=== PATIENT | female | born 1990 | race Caucasian/White ===

== ENCOUNTER 2016-05-16 13:37 | Inpatient (IN) ==
--- NOTE | 2016-05-16 14:15 | Emergency Department Note ---
Disposition Clinical Impression: Cellulitis Qualifiers: Site of cellulitis: unspecified site Qualified Code(s): L03.90 - Cellulitis, unspecified Osteomyelitis Qualifiers: Osteomyelitis type: unspecified type Osteomyelitis location: unspecified site Qualified Code(s): M86.9 - Osteomyelitis, unspecified Disposition: Admitted As Inpatient Condition: Good Referrals: NO,PCP [Primary Care Provider] - Forms: ED Satisfaction Letter Time of Disposition: 15:29 Extremity Problem HPI - General Chief complaint: ED Extremity Problem,Nontraumatic Stated complaint: Problem with toes Time Seen by Provider: 05/16/16 14:11 Source: patient Limitations: no limitations Nursing Notes Reviewed: Yes Vital Signs Reviewed: Yes - History of Present Illness HPI Narrative: 25-year-old who states she has a history of Raynaud's phenomena is in because of toe today. On her left foot she's got a necrotic distal third digit. The patient last saw Dr. Cox one month ago. Pt Subjective Complaint: extremity pain Onset (ago): month(s) (6-8 months) Consistency: constant Injury Location: left, right, lower extremity Pain Scale: 10 Quality: burning, aching Improves with: nothing Worsens with: nothing Associated symptoms: Reports: denies other symptoms - Related Data Home Medications Medication Instructions Recorded Confirmed Acetaminophen [Tylenol] 500 mg PO Q6HR PRN 05/16/16 05/16/16 Allergies Allergy/AdvReac Type Severity Reaction Status Date / Time Cyclobenzaprine Allergy Numbness Verified 03/17/15 16:31 [From Flexeril] tramadol Allergy Rash Verified 03/17/15 16:31 Possible muscle relaxer AdvReac Numbness Uncoded 12/14/14 15:06 Constitutional: Denies: fever, chills, weakness, weight change Eyes: Denies: eye pain, eye discharge, vision change ENT ED: Denies: ear pain, throat pain, dental pain, hearing loss, epistaxis, congestion, dysphagia Cardiovascular: Denies: chest pain, palpitations, dyspnea on exertion, edema, syncope Respiratory: Denies: cough, dyspnea, wheezes, hemoptysis, stridor Gastrointestinal: Denies: abdominal pain, nausea, vomiting, diarrhea, constipation, hematemesis, melena, hematochezia Genitourinary: Denies: dysuria, frequency, hematuria, discharge Musculoskeletal: Denies: back pain, neck pain, arthralgia, myalgia Integumentary: Denies: rash, abrasion, lesions Neurological: Denies: headache, weakness, numbness, paresthesias, confusion, abnormal gait, vertigo Psychiatric: Denies: anxiety, depression, suicidal thoughts, homicidal thoughts , auditory hallucinations, visual hallucinations Endocrine: Denies: fatigue Hematological/Lymphatic: Denies: easy bleeding, easy bruising Allergic/Immunologic: Denies: facial swelling, urticaria Past Medical History - Past Medical History Medical history: Reports: no medical history, thyroid disease, other Surgical history: Reports: no surgical history Psychiatric history: Reports: no psych history BUSINESS CENTER REPRESENTATIVE history: Reports: no BUSINESS CENTER REPRESENTATIVE history - Social History Smoking Status: Former smoker Smokeless Tobacco Status: No Alcohol use: Reports: none Drug use: Reports: none Physical Exam - General Limitations: no limitations General appearance: alert - Head Head exam: atraumatic, normocephalic, normal inspection - Eye Eye exam: Present: normal appearance, PERRL, EOMI - ENT ENT exam: normal exam, normal oropharynx, mucous membranes moist - Neck Neck exam: Present: normal inspection, full ROM, trachea midline - Chest Chest inspection: Present: normal inspection, symmetric chest wall rise - Respiratory Respiratory exam: Present: normal lung sounds bilaterally - Cardiovascular Cardiovascular exam: Present: regular rate, normal rhythm, normal heart sounds - Abdominal Exam Abdominal exam: Present: soft, Non-Tender. Absent: tenderness, distention, guarding, rebound, rigidity - Extremities Exam Extremities exam: Present: normal inspection, full ROM. Absent: tenderness, pedal edema - Expanded Lower Extremity Exam Foot/toe exam: Present: other (Necrotic middle toe left foot erythema of the distal digits.) Neurovascular/Tendon exam: Absent: motor deficit, sensory deficit, tendon deficit Gait: observed and normal - Back Exam Back exam: Present: normal inspection, full ROM. Absent: tenderness - Neurological Exam Neurological exam: Present: alert, oriented X3 Course - Consultations Consultation #1: I discussed the case with Dr. Cox who would like the patient admitted he may have to do a partial amputation of her left middle toe. Time: 15:28 Consultation #2: Discussed with Dr. Brown, admit. Time: 15:48 Vital Signs Temperature 97.8 F 05/16/16 13:41 Pulse Rate 74 05/16/16 13:41 Respiratory Rate 14 05/16/16 13:41 Blood Pressure 165/109 05/16/16 13:41 O2 Sat by Pulse Oximetry 96 05/16/16 13:41 Temperature 97.8 F 05/16/16 13:41 Pulse Rate 75 05/16/16 14:35 Respiratory Rate 14 05/16/16 13:41 Blood Pressure 165/109 05/16/16 13:41 O2 Sat by Pulse Oximetry 96 05/16/16 13:41 Oxygen Delivery Oxygen Delivery Room Air Extremity Problem, Nontraumati - Lab Data Lab results reviewed: Yes I reviewed the patient's lab results. Result diagrams: 05/16/16 14:48 05/16/16 14:48 Lab Results 05/16/16 05/16/16 05/16/16 Range/Units 14:48 14:48 14:48 WBC 11.5 H (4.3-11.1) K/mcL RBC 4.77 (3.82-4.97) M/mcL Hgb 14.1 (11.5-15.4) g/dL Hct 41.6 (35.3-44.9) % MCV 87.2 (83.0-100.0) fL MCH 29.6 (28.0-33.3) pg MCHC 33.9 (31.6-35.5) g/dL RDW 13.2 (11.5-14.5) % Plt Count 242 (140-400) K/mcL MPV 11.1 (9.4-12.4) fL Immature Gran % 0.3 (0-4) % Seg Neutrophils % 80.1 % Lymphocytes % 11.8 % Monocytes % 5.8 % Eosinophils % 1.7 % Basophils % 0.3 % Neutrophils # 9.2 H (1.6-8.9) K/mcL Lymphocytes # 1.4 (0.6-4.6) K/mcL Monocytes # 0.7 (0.0-1.3) K/mcL Eosinophils # 0.2 (0.0-0.6) K/mcL Basophils # 0.0 (0.0-0.2) K/mcL ESR 41 H (0-15) mm/hr Sodium 141 (136-145) mEq/L Potassium 3.5 (3.5-4.5) mEq/L Chloride 105 (98-109) mEq/L Carbon Dioxide 29 (19-29) mEq/L BUN 13 (7-20) mg/dL Creatinine 1.12 H (0.57-1.11) mg/dL Est GFR ( Amer) > 60 (> 60) Est GFR (Non-Af Amer) 59 L (> 60) BUN/Creatinine Ratio 12 (6-26) Glucose 83 (70-99) mg/dL Calculated Osmolality 291 (280-300) Calcium 9.4 (8.6-10.8) mg/dL - Radiology Data Radiology results reviewed: Yes I reviewed the patient's radiology results. Foot X-Ray 05/16/16 14:11 IMPRESSION: 1. Cellulitis with possible abscess and osteomyelitis involving the 3rd distal phalanx. D/ / Landon Santoro MD / Landon Santoro MD Interpreting Provider: Landon Santoro MD
[2016-05-16 15:00] LABS: Basophils % 0.3 %; Eosinophils # 0.2 K/mcL (0.0-0.6); Eosinophils % 1.7 %; Hematocrit 41.6 % (35.3-44.9); Hemoglobin 14.1 g/dL (11.5-15.4); Immature Granulocytes % 0.3 % (0-4); Lymphocytes # 1.4 K/mcL (0.6-4.6); Lymphocytes % 11.8 %; Mean Corpuscular HGB Conc 33.9 g/dL (31.6-35.5); Mean Corpuscular Hemoglobin 29.6 pg (28.0-33.3); Mean Corpuscular Volume 87.2 fL (83.0-100.0); Mean Platelet Volume 11.1 fL (9.4-12.4); Monocytes # 0.7 K/mcL (0.0-1.3); Monocytes % 5.8 %; Neutrophils # 9.2 K/mcL (1.6-8.9); Platelet Count 242 K/mcL (140-400); Red Blood Count 4.77 M/mcL (3.82-4.97); Red Cell Distribution Width 13.2 % (11.5-14.5); Segmented Neutrophils % 80.1 %
[2016-05-16 15:14] LABS: BUN/Creatinine Ratio 12 (6-26); Blood Urea Nitrogen 13 mg/dL (7-20); Calcium 9.4 mg/dL (8.6-10.8); Carbon Dioxide 29 mEq/L (19-29); Chloride 105 mEq/L (98-109); Glucose 83 mg/dL (70-99); Osmolality,Calculated 291 (280-300); Potassium 3.5 mEq/L (3.5-4.5); Sodium 141 mEq/L (136-145); eGFR For African Americans > 60 (> 60); eGFR For Non-African Americans 59 (> 60)
[2016-05-16] MEDS ORDERED: *HR* OxyCODONE/APAP 5/325 TABLET PO ONE (15:27)
[2016-05-16] MEDS ORDERED: Piperacillin/Tazobactam 3.375 GM in D5% in Water (Mini-Bag+) 100 ML IVPB ONE (15:27)
--- NOTE | 2016-05-16 20:46 | Internal Med History&Physical ---
<Mati Thomas - Last Filed: 05/17/16 00:13> Date of Encounter: 05/17/16 Time of Encounter: 19:45 Assessment and Plan (1) Osteomyelitis Current visit: Yes Status: Acute Patient appears to have osteomyelitis of left third toe, seen x-ray, physical exam shows exquisitely tender toe with necrotic appearance distal to the DIP. Podiatry consulted and appreciate assistance and continue management/care Infectious disease consult for assistance in determining best course of antibiotic coverage going forward 3.375 mg Zosyn Q8hr Vancomycin dosed per pharmacy Qualifiers: Osteomyelitis type: unspecified type Osteomyelitis location: foot Laterality: left Qualified Code(s): M86.9 - Osteomyelitis, unspecified (2) Cellulitis Current visit: Yes Status: Acute Cellulitis with erythema and possible streaking in left foot coming from third toe. Plan as above Qualifiers: Site of cellulitis: unspecified site Qualified Code(s): L03.90 - Cellulitis , unspecified (3) Thyroid disease Current visit: Yes Status: Acute Patient has history of thyroid disease, but she admits she has not been able take her medications on time due to not having refills. We will check TSH (4) DVT prophylaxis Current visit: Yes Status: Acute Due to possibility of surgery, will hold chemical prophylaxis Start intermittent pneumatic compression devices Internal Medicine - H&P: HPI Chief complaint: Toe infection Admitted From: Home Plans for Post Hospital Care: Home History of present illness: Ms. De Leon is a 25 year old female with prior medical history of Raynaud's disease, thyroid disease, history of aortic much regurgitation, and prior toe infection presents to [facility] because of worsening of her left third digit toe infection. She says she has had a chronic infection still for about a year, previously had received 5 rounds of antibiotics total for PCP and teller, with last round of antibiotics about a month prior. She presents after a couple weeks of acute worsening with significant pain in her toe and foot. She reports pain is significant, 8/10 when sitting and 10/10 when walking. She reports she recently developed more systemic symptoms including fever, and nausea. She denies ever having vomited, diarrhea/constipation, chest pain, shortness of breath, changes in vision, headache. She describes swelling in the left foot, tenderness to palpation, and a blackened, scabbed third toe. There has been minimal discharge or drainage from the toe. She states that her boyfriend are currently homeless living attendant, although they do have a heater she has been cold recently which may be exacerbating her Raynaud's. Past Med Surg Social Fam HX - Past Medical History Medical history: no medical history, thyroid disease, other Psychiatric history: no psych history - Past Surgical History Surgical History: no surgical history - Social History Smoking Status: Former smoker Smokeless Tobacco Status: No Alcohol use: none Drug use: none - Family History Mother Hx Family Endocrine Disorder: Yes Father Hx Family Neuromuscular Disorders: Yes (stroke) Internal Medicine - H&P: Meds Acetaminophen [Tylenol] 500 mg PO Q6HR PRN 05/16/16 [History] Allergies Cyclobenzaprine [From Flexeril] Allergy (Verified 03/17/15 16:31) Numbness tramadol Allergy (Verified 03/17/15 16:31) Rash Possible muscle relaxer Adverse Reaction (Uncoded 12/14/14 15:06) Numbness - Constitutional Constitutional: anorexia, fever(s), no chills, no weakness - EENT Eyes: no change in vision, no discharge, no pain, no photophobia Nose, mouth and throat: no dysphagia, no nasal discharge, no neck pain, no sore throat - Cardiovascular Cardiovascular ROS IM: no chest pain, no diaphoresis, no dyspnea, no lightheadedness, no palpitations, no syncope - Respiratory Respiratory: no cough, no dyspnea, no wheezing, no excessive phlegm production - Gastrointestinal Gastrointestinal: no abdominal pain, no diarrhea, no hematemesis, no hematochezia, no melena, no nausea, no vomiting - Genitourinary Genitourinary: no change in urinary stream, no dysuria, no flank pain, no hematuria - Musculoskeletal Musculoskeletal ROS IM: as per HPI, no numbness, no tingling - Integumentary Integumentary IM: no rash, no unusual bruising - Neurological Neurological ROS: no confusion, no convulsions, no focal weakness, no numbness, no tingling, no tremor(s) - Constitutional Vitals: Temp Pulse Resp BP Pulse Ox 98.1 F 107 16 143/96 98 05/16/16 19:08 05/16/16 19:08 05/16/16 19:08 05/16/16 19:08 05/16/16 19:08 Exam: General: Cooperative, pleasant, no acute distress, alert and oriented 3, answers questions appropriately Head: Normocephalic, atraumatic Eye: Conjunctiva pink, sclera anicteric, EOMI, PERRL, somewhat tearful Neck: Supple, trachea midline, mucosa moist Respiratory: No accessory muscle usage, clear to auscultation bilaterally, no wheezes/rhonchi/rales appreciated Cardiovascular: Tachycardic, regular rhythm, S1 and S2 present, no murmurs/rubs/ gallops/clicks appreciated GI/abdominal: Nondistended, nontender, soft, normal bowel sounds, no peritoneal signs Extremities: No calf tenderness, noncyanotic, no pedal edema appreciated, warm, lower extremity pulses palpable and symmetrical, minor asymmetrical swelling of L>R patient's foot, left third toe from DIP to the tip of the toe appears to be covered in black eschar with slight serosanguineous drainage appreciated Neurological: Alert and oriented 3, no facial droop, no focal deficits Skin: Dry, intact, normal color Internal Med - H&P Results - Labs CBC & Chem 7: 05/16/16 14:48 05/16/16 14:48 <Jimbo Crawford - Last Filed: 05/17/16 02:31> Internal Medicine - H&P: HPI History of present illness: Ms. De Leon is a 25 year old female All Systems PM: A 10-system review of systems was performed and is negative for pertinent findings except as documented above in the HPI. - Constitutional Vitals: Temp Pulse Resp BP Pulse Ox 98.1 F 101 16 147/95 97 05/16/16 23:07 05/16/16 23:07 05/16/16 23:07 05/16/16 23:07 05/16/16 23:07 Internal Med - H&P Results - Labs CBC & Chem 7: 05/16/16 14:48 05/16/16 14:48 - Attending Attestation I examined this patient and my medical decision-making was reviewed with the DISTRIBUTION ASSOCIATE/PA/Advanced Practice Nurse/Resident Physician. I agree with the documented findings, disposition and treatment plan as described except to the extent set forth below. I discussed the case with the medical certification specialist Dr. Mati Thomas. I examined the patient independently. I agree with the physical examination findings, assessment and plan as documented by Dr. Mati Thomas. Briefly, patient with findings consistent with osteomyelitis. Continue with broad-spectrum antibiotics. Podiatry evaluation. Infectious disease consultation for further recommendations. Discussed with patient in detail.
[2016-05-16] MEDS ORDERED: Ondansetron 4 MG/2 ML VIAL IVP PRN (20:49)
[2016-05-16] MEDS ORDERED: Naloxone 0.4 MG/ML INJ IVP PRN (20:49)
[2016-05-16] MEDS ORDERED: Acetaminophen 325 MG TABLET PO PRN (20:49)
[2016-05-16] MEDS ORDERED: Vancomycin 1,250 MG in D5% in Water 250 ML IVPB SCH (21:00)
[2016-05-16] MEDS ORDERED: Vancomycin 1,750 MG in D5% in Water 500 ML IVPB ONE (21:00)
[2016-05-16] MEDS: *HR* HYDROcodone/Acet 5/325 mg TABLET PO PRN (21:35)
[2016-05-16] MEDS: *HR* Heparin 5,000 UNIT/ML VIAL SQ SCH (21:37)
[2016-05-16] MEDS ORDERED: Nicotine 14 MG PATCH.TD24 TD PRN (21:37)
[2016-05-16] MEDS: *HR* Morphine 2 MG/ML SYRINGE IVP PRN (23:45)
[2016-05-17] MEDS: Piperacillin/Tazobactam 3.375 GM in D5% in Water (Mini-Bag+) 100 ML IVPB SCH ×3 (00:10→17:24)
[2016-05-17 04:19] LABS: Basophils % 0.4 %; Eosinophils # 0.2 K/mcL (0.0-0.6); Eosinophils % 2.5 %; Hematocrit 40.5 % (35.3-44.9); Hemoglobin 13.3 g/dL (11.5-15.4); Immature Granulocytes % 0.3 % (0-4); Lymphocytes # 1.9 K/mcL (0.6-4.6); Lymphocytes % 20.1 %; Mean Corpuscular HGB Conc 32.8 g/dL (31.6-35.5); Mean Corpuscular Volume 88.4 fL (83.0-100.0); Mean Platelet Volume 11.5 fL (9.4-12.4); Monocytes # 0.7 K/mcL (0.0-1.3); Monocytes % 7.5 %; Neutrophils # 6.4 K/mcL (1.6-8.9); Platelet Count 223 K/mcL (140-400); Red Blood Count 4.58 M/mcL (3.82-4.97); Red Cell Distribution Width 13.2 % (11.5-14.5); Segmented Neutrophils % 69.2 %
[2016-05-17 04:27] LABS: INR 1.1; Prothrombin Time 12.1 Seconds (9.4-12.1)
[2016-05-17 04:30] LABS: Activated Partial Thrombo Time 32.4 Seconds (26.0-36.0)
[2016-05-17 04:50] LABS: Alanine Aminotransferase 57 Units/L (0-55); Albumin 3.3 g/dL (3.5-5.0); Albumin/Globulin Ratio 0.8 (1.1-2.2); Alkaline Phosphatase 88 Units/L (38-126); Aspartate Amino Transferase 33 Units/L (5-34); BUN/Creatinine Ratio 11 (6-26); Bilirubin,Total 0.9 mg/dL (0.2-1.2); Blood Urea Nitrogen 12 mg/dL (7-20); Calcium 8.6 mg/dL (8.6-10.8); Carbon Dioxide 26 mEq/L (19-29); Chloride 104 mEq/L (98-109); Globulin 3.9 g/dL (2.4-3.5); Glucose 100 mg/dL (70-99); Osmolality,Calculated 292 (280-300); Potassium 3.1 mEq/L (3.5-4.5); Sodium 141 mEq/L (136-145); Total Protein 7.2 g/dL (6.0-8.3); eGFR For African Americans > 60 (> 60); eGFR For Non-African Americans 59 (> 60)
[2016-05-17] MEDS: *HR* Heparin 5,000 UNIT/ML VIAL SQ SCH ×3 (06:18→23:02)
[2016-05-17] MEDS: Pantoprazole 40 MG VIAL IVP SCH (07:55)
[2016-05-17] MEDS ORDERED: Vancomycin 1,250 MG in D5% in Water 250 ML IVPB SCH (09:00)
--- NOTE | 2016-05-17 10:23 | Podiatry Consult Note ---
Date of Encounter: 05/17/16 Time of Encounter: 09:30 Assessment and Plan (1) Raynauds disease Current visit: Yes Status: Acute Qualifiers: Raynaud?s-associated gangrene presence: with gangrene Qualified Code(s): I73.01 - Raynaud's syndrome with gangrene (2) Cellulitis Current visit: Yes Status: Acute Qualifiers: Site of cellulitis: extremity Site of cellulitis of extremity: toe Laterality: left Qualified Code(s): L03.032 - Cellulitis of left toe (3) Osteomyelitis Current visit: Yes Status: Acute Examined at bedside Necrosis and acute cellulitis noted to left foot toe #3 Xray positive for osteomyelitis Will consult cardiology for clearance for surgery Will plan for partial to complete amputation of toe tomorrow with Patient to be NPO after midnight Please dress ulceration with adaptic, 4x4 and kerlex Continue IV antibiotic per ID Explained to patient that if she continues to smoke these ulcerations will continue to occur Verbalized understanding. Qualifiers: Osteomyelitis type: unspecified type Osteomyelitis location: foot Laterality: left Qualified Code(s): M86.9 - Osteomyelitis, unspecified History of Present Illness HPI: Ms. De Leon is a 25 year old female known to . She has a hx of non compliance to treatment and continued tobacco use. Hx of Aortic and Mitral Valve regurgitation, HTN, Raynauds and Vasculitis. Patient was recently seen in office for ulceration of toe #3, at this time she was instructed to apply santyl daily and to stop smoking, it was explained that this ulceration was secondary to her Raynauds. Patient presented to ED yesterday with complaints of increasing pain to toe and size of ulceration. She was started on IV antibiotics and imaging was obtained. Upon arrival today patient states pain 10/ 10 to toe. Dressing intact on arrival. Patient awake, alert and in no distress. Patient states that ulceration appeared larger to her. Patient states that she has noticed some drainage to the toe over the last 2 days. Patient denies any fevers, chills, n/v or flu like symptoms. Foot X-Ray 05/16/16 14:11 IMPRESSION: 1. Cellulitis with possible abscess and osteomyelitis involving the 3rd distal phalanx. D/ / Landon Santoro MD / Landon Santoro MD Interpreting Provider: Landon Santoro MD Past Med Surg Social Fam HX - Past Medical History Medical history: no medical history, thyroid disease, other Psychiatric history: no psych history - Past Surgical History Surgical History: no surgical history - Social History Smoking Status: Former smoker Smokeless Tobacco Status: No Alcohol use: none Drug use: none - Family History Mother Hx Family Endocrine Disorder: Yes Father Hx Family Neuromuscular Disorders: Yes (stroke) Medications and Allergies Acetaminophen [Tylenol] 500 mg PO Q6HR PRN 05/16/16 [History] Allergies Cyclobenzaprine [From Flexeril] Allergy (Verified 03/17/15 16:31) Numbness tramadol Allergy (Verified 03/17/15 16:31) Rash Possible muscle relaxer Adverse Reaction (Uncoded 12/14/14 15:06) Numbness All Systems Reviewed: A 10-system review of systems was performed and is negative for pertinent findings except as documented above in the HPI. Physical Exam - Constitutional Vitals: Temp Pulse Resp BP Pulse Ox 98.0 F 82 16 149/104 97 05/17/16 07:29 05/17/16 07:29 05/17/16 07:29 05/17/16 07:29 05/17/16 07:55 Exam: General Examination: CONSTITUTIONAL: Alert, oriented, in no acute distress, non-toxic. EXTREMITIES: CFT 3 seconds all toes. Edema +1 and pedal pulses palpable DP/PT. No calf pain with compression SKIN: Necrotic ulceration noted to dorsal/lateral distal aspect toe #3 of left foot. Yellow purulent drainage noted from proximal aspect of ulceration. Odor noted. Pain with palpation. Mild fluctuance noted with palpation of area. Cellulitis extends slightly past IP joint of toe. Warmth, mild edema and erythema noted 2nd smaller necrotic lesion noted to lateral aspect of toe #5 right foot. No warmth, edema, erythema or drainage noted to this lesion. Dry. 0.6cmx0.5cm. Also secondary to raynauds. NEUROLOGIC: Intact sensation to light touch Results - Labs Result Diagrams: 05/17/16 03:31 05/17/16 03:31 Labs: Abnormal lab results ESR 41 mm/hr (0-15) H 05/16/16 14:48 Potassium 3.1 mEq/L (3.5-4.5) L 05/17/16 03:31 Creatinine 1.13 mg/dL (0.57-1.11) H 05/17/16 03:31 Est GFR (Non-Af Amer) 59 (> 60) L 05/17/16 03:31 Glucose 100 mg/dL (70-99) H 05/17/16 03:31 ALT 57 Units/L (0-55) H 05/17/16 03:31 Albumin 3.3 g/dL (3.5-5.0) L 05/17/16 03:31 Globulin 3.9 g/dL (2.4-3.5) H 05/17/16 03:31 Albumin/Globulin Ratio 0.8 (1.1-2.2) L 05/17/16 03:31 H & H 05/17/16 Range/Units 03:31 Hgb 13.3 (11.5-15.4) g/dL Hct 40.5 (35.3-44.9) % All other labs normal. Consult Discharge Plan - Plan Referrals: NO,PCP [Primary Care Provider] -
--- NOTE | 2016-05-17 10:54 | Cardiology Consult Note ---
Date of Encounter: 05/17/16 Time of Encounter: 11:00 Assessment and Plan (1) Osteomyelitis Current Visit: Yes Status: Acute Per Cardiology: Podiatry following. Has necrosis and acute cellulitis noted to left foot toe #3 with ray positive for osteomyelitis with pending partial to complete amputation of toe tomorrow with Dr. Cox per records. Qualifiers: Osteomyelitis type: unspecified type Osteomyelitis location: foot Laterality: left Qualified Code(s): M86.9 - Osteomyelitis, unspecified (2) Mitral regurgitation Current Visit: No Status: Chronic Per Cardiology: Last echo June 2015 showed EF 60%, indeterminate diastolic function, normal RV structure and function, moderately dilated left atrium, moderate to severe MR. PAULINO completed June 2015 and showed normal mitral structure with moderate MR. Qualifiers: Cardiac valve disease etiology: etiology unspecified Qualified Code(s): I34.0 - Nonrheumatic mitral (valve) insufficiency (3) Preop cardiovascular exam Current Visit: Yes Status: Acute Per Cardiology: Has Moderate MR on PAULINO 06/2015. Clinically stable from CV standpoint. Anticipate will be considered low risk for low risk procedure from cardiac standpoint. Will discuss and review with Dr. Crews. Appt. with outpatient Cardiology cancelled today and rescheduled in a few weeks. Cardiology signing off. Discussion w patient/family: The assessment and plan as outlined above was discussed with the patient who expressed understanding and agreement. All questions were answered. Thank you for involving us in the care of your patient. Please call with any questions. History of Present Illness Consult date: 05/17/16 Requesting physician: Phyllis Rogers Consult reason: Preop Chief complaint: Left Toe pain History of present illness: Ms. De Leon is a 25 year old female with relevant past medical history of hypertension, hypothyroidism, nicotine abuse, Raynaud's disease, and moderate mitral regurgitation. Cardiology consult for preoperative evaluation. Patient reports she is homeless and lives in a tent. Presented to the hospital for pain in her Left 3rd toe. She denies any chest pain, shortness of breath, palpitations, dizziness, syncope, falls. Reports continues to smoke about half pack per day for the past 5 years. Past Med Surg Social Fam HX - Past Medical History Attestation: Yes The following information was validated with the patient. Source: patient Medical history: hypertension, thyroid disease, other Psychiatric history: no psych history - Past Surgical History Surgical History: no surgical history - Social History Smoking Status: Current every day smoker Smokeless Tobacco Status: No Alcohol use: none Drug use: none - Family History Mother Hx Family Endocrine Disorder: Yes Father Hx Family Neuromuscular Disorders: Yes (stroke) Medications and Allergies Acetaminophen [Tylenol] 500 mg PO Q6HR PRN 05/16/16 [History] Allergies Cyclobenzaprine [From Flexeril] Allergy (Verified 03/17/15 16:31) Numbness tramadol Allergy (Verified 03/17/15 16:31) Rash Possible muscle relaxer Adverse Reaction (Uncoded 12/14/14 15:06) Numbness All Systems Review: A 10-system review of systems was performed and is negative for pertinent findings except as documented above in the HPI. - Cardiovascular Cardiovascular: as per HPI - Integumentary Integumentary: other (left 3rd toe pain and discoloration) Physical Examination Vital Signs, Last 4 Hours Temp Pulse Resp BP Pulse Ox 05/17/16 07:55 97 05/17/16 07:29 98.0 F 82 16 149/104 97 General: Conversant, No Apparent Distress HEENT: Atraumatic, Normocephaly Cardiac: Reg Rate and Rhythm, Normal S1 and S2, No Murmur Lungs: Normal Breath Sounds, No Wheeze, Rales, Rhonchi Neuro: Alert and responsive, No focal deficits noted, Other (somewhat flat affect) Abdomen: Soft, Non-Tender Skin: Other (Left 3rd toe with necrosis) Musculoskeletal: No Chest Wall Tenderness Extremities: No Edema, Normal Pulses Results 05/17/16 03:31 05/17/16 03:31 Lab Results Laboratory Tests 05/17/16 05/17/16 05/17/16 03:31 03:31 03:31 INR 1.1 Potassium 3.1 L Creatinine 1.13 H Est GFR (Non-Af Amer) 59 L AST 33 ALT 57 H TSH 3.221 ITS Impressions Foot X-Ray 05/16/16 14:11 IMPRESSION: 1. Cellulitis with possible abscess and osteomyelitis involving the 3rd distal phalanx. D/ / Landon Santoro MD / Landon Santoro MD Interpreting Provider: Landon Santoro MD Foot X-Ray 05/16/16 14:11 IMPRESSION: 1. No acute osseous abnormality involving the right foot. D/ / Landon Santoro MD / Landon Santoro MD Interpreting Provider: Landon Santoro MD Active Medications Acetaminophen (Tylenol) 650 mg PO Q6HR PRN PRN Reason: Mild Pain (1-3) Stop: 11/15/16 20:50 Acetaminophen/Hydrocodone Bitart ([place] 5-325 Mg) 1 tab PO Q4HR PRN PRN Reason: Moderate Pain (4-6) Stop: 11/15/16 20:50 Last Admin: 05/16/16 21:35 Dose: 1 tab Diphenhydramine HCl (Benadryl) 25 mg PO Q6HR PRN PRN Reason: Itching Stop: 11/15/16 23:39 Last Admin: 05/16/16 23:50 Dose: 25 mg Heparin Sodium (Porcine) (Heparin) 5,000 unit SQ Q8HCO [facility] Stop: 11/15/16 22:01 Last Admin: 05/17/16 06:18 Dose: Not Given Piperacillin Sod/Tazobactam (Sod 3.375 gm/ Dextrose) 100 mls @ 25 mls/hr IVPB Q8HR HIGINIO PRN Reason: Protocol Stop: 11/16/16 00:01 Last Admin: 05/17/16 07:54 Dose: 25 mls/hr Vancomycin HCl 1,250 mg/ (Dextrose) 250 mls @ 166.67 mls/hr IVPB Q12H [facility] Stop: 11/16/16 09:01 Last Admin: 05/17/16 08:08 Dose: 166.67 mls/hr Morphine Sulfate (Morphine Sulfate) 2 mg IVP Q4HR PRN PRN Reason: Severe Pain (7-10) Stop: 11/15/16 20:50 Last Admin: 05/16/16 23:45 Dose: 2 mg Naloxone HCl (Narcan) 0.4 mg IVP Q2MIN PRN PRN Reason: Opioid Reversal Stop: 11/15/16 20:50 Nicotine (Nicoderm) 14 mg TD DAILY PRN; Protocol PRN Reason: nicotine cravings Stop: 11/15/16 21:46 Ondansetron HCl (Zofran) 4 mg IVP Q8HR PRN PRN Reason: Nausea And Vomiting Stop: 11/15/16 20:50 Pantoprazole Sodium (Protonix) 40 mg IVP DAILY HIGINIO Stop: 11/16/16 09:01 Last Admin: 05/17/16 07:55 Dose: 40 mg - Imaging and Cardiology Echo: report reviewed - EKG Interpretation EKG results cardiology: other (No ECG available and patient not on telemetry) Consult Discharge Plan - Plan Referrals: NO,PCP [Primary Care Provider] -
--- NOTE | 2016-05-17 14:24 | Internal Med Progress Note ---
Date of Encounter: 05/17/16 Time of Encounter: 14:22 - Assessment and plan (1) Hypokalemia Current Visit: Yes Status: Acute Assessment and plan: Replace her potassium orally today (2) Non-compliance Current Visit: Yes Status: Acute (3) Hypertension Current Visit: No Status: Acute Qualifiers: Hypertension type: essential hypertension Qualified Code(s): I10 - Essential (primary) hypertension (4) Tobacco abuse counseling Current Visit: No Status: Acute (5) Cellulitis Current Visit: Yes Status: Acute Qualifiers: Site of cellulitis: extremity Site of cellulitis of extremity: toe Laterality: left Qualified Code(s): L03.032 - Cellulitis of left toe (6) Osteomyelitis Current Visit: Yes Status: Acute Assessment and plan: #1. White count returned to normal. #2. Please see podiatry note. I think there is plan to have this toe be amputated because of the issues that are involved. #3. Imperative for her to quit smoking, this is imperative just simply from the fact of the Raynaud's phenomena/syndrome Qualifiers: Osteomyelitis type: unspecified type Osteomyelitis location: foot Laterality: left Qualified Code(s): M86.9 - Osteomyelitis, unspecified (7) Raynauds disease Current Visit: Yes Status: Acute Qualifiers: Raynaud?s-associated gangrene presence: with gangrene Qualified Code(s): I73.01 - Raynaud's syndrome with gangrene - Subjective Interval history: She states she feels cold off and on a good bit during the day but does not know she has had any temperature. She denies any sweats. She denies any shakes. - Constitutional Vitals: Temp Pulse Resp BP Pulse Ox 97.9 F 89 16 150/93 98 05/17/16 11:21 05/17/16 11:21 05/17/16 11:21 05/17/16 11:21 05/17/16 11:21 General appearance: Present: disheveled, A&O X 3, pleasant - Respiratory Respiratory exam: Present: CTAB - Cardiovascular Cardiovascular exam: Present: RRR Internal Medicine: Result - Labs CBC & Chem 7: 05/17/16 03:31 05/17/16 03:31 Labs: Short CBC 05/17/16 Range/Units 03:31 WBC 9.2 (4.3-11.1) K/mcL Hgb 13.3 (11.5-15.4) g/dL Hct 40.5 (35.3-44.9) % Plt Count 223 (140-400) K/mcL Neutrophils # 6.4 (1.6-8.9) K/mcL BMP 05/17/16 03:31 Sodium 141 Potassium 3.1 L Chloride 104 Carbon Dioxide 26 BUN 12 Creatinine 1.13 H Glucose 100 H Calcium 8.6 Liver Function 05/17/16 Range/Units 03:31 Total Bilirubin 0.9 (0.2-1.2) mg/dL AST 33 (5-34) Units/L ALT 57 H (0-55) Units/L Alkaline Phosphatase 88 (38-126) Units/L Albumin 3.3 L (3.5-5.0) g/dL - ABG Interpretation ABG results: PT/INR, D-dimer PT 12.1 Seconds (9.4-12.1) 05/17/16 03:31 Consult Discharge Plan - Plan Referrals: NO,PCP [Primary Care Provider] -
[2016-05-17] MEDS: amLODIPine 5 MG TABLET PO SCH (14:50)
--- NOTE | 2016-05-17 16:14 | Infectious Disease Consult ---
Date of Encounter: 05/17/16 Time of Encounter: 16:11 Assessment and Plan (1) Osteomyelitis Status: Acute Assessment and plan: Location: Left foot third toe. Causative organism unclear. No cultures have been obtained. ESR elevated at 40. No CRP done. X-ray of the left foot showed findings consistent with cellulitis with possible abscess and OM of the third distal phalanx. The patient has no SIRS criteria. Antibiotics initiated in the ED and continued by the primary team. Podiatry consulted. Plan to take the patient to the OR tomorrow for amputation of the affected toe. Check CRP. Get blood cultures x 2 sets now. Hold further antibiotics until after surgery. If the patient begins to exhibit signs of sepsis, re-start Vancomycin and Zosyn. Re-start Vanc and Zosyn post-op tomorrow. Await intra-operative findings and cultures. Duration of treatment depends on the clinical picture, but the patient will likely require at least a few weeks of IV antibiotics. The patient reports that she is homeless and lives in a tent in the [facility] with her boyfriend. Consult social science professor for possible rehab placement on discharge as the patient will likely need IV antibiotics and this cannot be done if the patient is living in the [facility]. Monitor renal function and for drug toxicity and dose-adjust antibiotics. Qualifiers: Osteomyelitis type: unspecified type Osteomyelitis location: foot Laterality: left Qualified Code(s): M86.9 - Osteomyelitis, unspecified (2) Cellulitis Status: Acute Assessment and plan: Causative organism unclear. Location: Left foot, third toe. Antibiotic recommendations as above. Qualifiers: Site of cellulitis: extremity Site of cellulitis of extremity: toe Laterality: left Qualified Code(s): L03.032 - Cellulitis of left toe (3) Hypokalemia Status: Acute Assessment and plan: Potassium level 3.1 this morning. Management per the primary team. (4) Mitral regurgitation Status: Chronic Assessment and plan: Cardiology consulted. Recommendations reviewed. Cleared for surgery. Qualifiers: Cardiac valve disease etiology: etiology unspecified Qualified Code(s): I34.0 - Nonrheumatic mitral (valve) insufficiency (5) Raynauds disease Status: Chronic Qualifiers: Raynaud?s-associated gangrene presence: with gangrene Qualified Code(s): I73.01 - Raynaud's syndrome with gangrene (6) Thyroid disease Status: Chronic (7) Hypertension Status: Chronic Qualifiers: Hypertension type: essential hypertension Qualified Code(s): I10 - Essential (primary) hypertension Infectious Disease HPI - Data of Consult Patient: new to practice Consult date: 05/17/16 Requesting Physician: Ayaka Meza Primary Care Provider: PCP NO - Consult Narrative Reason for consult: Osteomyelitis left foot third toe History of present illness: Ms. De Leon is a 25 year old female with a past medical history of Raynaud's syndrome, hypothyroidism, nodular heart disease, hypertension, and vasculitis. The patient was admitted to the hospital May 16 for cellulitis and osteomyelitis of the left third toe. We are consulted May 17 for further evaluation and treatment recommendations regarding osteomyelitis of the left foot third toe. The patient is a 25-year-old female with past medical history as stated above. The patient presented to the emergency department with complaints of worsening pain in the left foot. She states that she has had an ulcer on that toe for about a year. She states she saw Dr. Cox about a month ago. She states that over the past couple of weeks it has continued to get worse and more painful. She reports some bloody drainage. She reports subjective fevers and chills. Upon arrival to the ER, the patient was hemodynamically stable and afebrile. She did have a mildly elevated white blood cell count at 11.5 thousand. Her basic metabolic panel was normal. Her ESR was mildly elevated at 41. Left foot x -ray showed cellulitis with possible abscess and osteoarthritis of the third distal phalanx. A right foot x-ray was completed that was negative. The patient was started on empiric IV antibiotics by the ER staff and was admitted to the hospital for further evaluation and treatment. She has remained hemodynamically stable and afebrile. Her leukocytosis has resolved. Podiatry has been consulted and is planning to take the patient to the operating room tomorrow for amputation of the affected toe. Cardiology was consulted due to the patient's history of valvular heart disease and has cleared the patient for surgery. Currently, the patient is on IV vancomycin and IV Zosyn. We've been asked to evaluate and make further recommendations. The patient endorses the history as stated above. She complains of some subjective fevers and chills, but has any rigors. She denies any headache or neck pain. She reports some rhinorrhea, but denies any congestion, earache, or sore throat. She denies any chest pain, shortness of breath, or cough. She denies any vomiting, diarrhea, constipation. She does report some nausea and decreased appetite. She denies any urinary complaints. She complains of pain only in the left foot third toe and just proximal to the affected digit. She reports some bloody drainage from the wound. She denies any foul odor or [place] pus coming from the wound. Review of the medical record reveals that she had told one provider that she had been on multiple antibiotics for this ulcer in the past, but she denies any of this to me. She states she is homeless and lives in a tent in the [facility] with her boyfriend. CC: Ayaka Meza Past Med Surg Social Fam HX - Past Medical History Attestation: Yes The following information was validated with the patient. Source: patient, old records reviewed, nursing notes reviewed Medical history: hypertension, thyroid disease, other Psychiatric history: no psych history - Past Surgical History Surgical History: no surgical history - Social History Smoking Status: Current every day smoker Packs per day: 0.5 Smokeless Tobacco Status: No Alcohol use: none Drug use: none Occupational status: unemployed Current living situation: Homeless Activity Level: Independent ambulation Recent Out of Country Travel Within the Last 8 Weeks: No Exposure or Possible Exposure to Illness During Travel: No - Family History Mother Hx Family Endocrine Disorder: Yes Father Hx Family Neuromuscular Disorders: Yes (stroke) Infectious Disease-CN:Meds Acetaminophen [Tylenol] 500 mg PO Q6HR PRN 05/16/16 [History] Allergies Cyclobenzaprine [From Flexeril] Allergy (Verified 03/17/15 16:31) Numbness tramadol Allergy (Verified 03/17/15 16:31) Rash Possible muscle relaxer Adverse Reaction (Uncoded 12/14/14 15:06) Numbness All systems: reviewed and no additional remarkable complaints except as stated Exam - Constitutional Vitals: Temp Pulse Resp BP Pulse Ox 98.1 F 85 16 143/92 98 05/17/16 14:31 05/17/16 14:31 05/17/16 14:31 05/17/16 14:31 05/17/16 14:31 General appearance: average body habitus, cooperative, no acute distress - Head Head exam: Present: atraumatic, normal inspection, normocephalic - Eye Eye exam: Present: EOMI, normal appearance, PERRL Pupils: Present: normal accommodation - ENT ENT exam: Present: mucous membranes moist - Neck Neck exam: Present: normal inspection - Respiratory Respiratory exam: Present: CTAB. Absent: rales, respiratory distress, rhonchi, wheezes - Cardiovascular Cardiovascular exam: Present: RRR, +S1, +S2 - GI/Abdominal GI/Abdominal exam: Present: normal bowel sounds, soft. Absent: distended, tenderness - Extremities Exam Extremities exam: Present: tenderness (left foot third digit). Absent: joint swelling, pedal edema - Expanded Lower Extremity Exam 1 - Dime-sized scabbed lesion with surround erythema and tenderness extending proximally to the 3rd MTP joint. - Neurological Exam Neurological exam: Present: alert, oriented X3, no focal deficits - Psychiatric Psychiatric exam: Present: normal affect, normal mood - Skin Skin exam: Present: dry, intact, normal color, warm Infectious Disease CN: Results - Labs CBC & Chem 7: 05/17/16 03:31 05/17/16 03:31 Consult Discharge Plan - Plan Referrals: Tessa Bee CNP [Partnered Physician] - 06/06/16 3:00 pm
[2016-05-17] MEDS: *HR* HYDROcodone/Acet 5/325 mg TABLET PO PRN (17:25)
[2016-05-17] MEDS: *HR* Morphine 2 MG/ML SYRINGE IVP PRN (23:59)
[2016-05-18 03:50] LABS: Basophils % 0.4 %; Eosinophils # 0.3 K/mcL (0.0-0.6); Eosinophils % 3.2 %; Hematocrit 39.8 % (35.3-44.9); Hemoglobin 13.3 g/dL (11.5-15.4); Immature Granulocytes % 0.4 % (0-4); Lymphocytes # 1.7 K/mcL (0.6-4.6); Lymphocytes % 20.9 %; Mean Corpuscular HGB Conc 33.4 g/dL (31.6-35.5); Mean Corpuscular Hemoglobin 29.2 pg (28.0-33.3); Mean Corpuscular Volume 87.5 fL (83.0-100.0); Mean Platelet Volume 11.5 fL (9.4-12.4); Monocytes # 0.7 K/mcL (0.0-1.3); Monocytes % 8.4 %; Neutrophils # 5.3 K/mcL (1.6-8.9); Platelet Count 213 K/mcL (140-400); Red Blood Count 4.55 M/mcL (3.82-4.97); Red Cell Distribution Width 13.4 % (11.5-14.5); Segmented Neutrophils % 66.7 %
[2016-05-18 04:18] LABS: BUN/Creatinine Ratio 8 (6-26); Blood Urea Nitrogen 8 mg/dL (7-20); Calcium 9.3 mg/dL (8.6-10.8); Carbon Dioxide 26 mEq/L (19-29); Chloride 108 mEq/L (98-109); Glucose 99 mg/dL (70-99); Osmolality,Calculated 294 (280-300); Potassium 3.7 mEq/L (3.5-4.5); Sodium 143 mEq/L (136-145); eGFR For African Americans > 60 (> 60); eGFR For Non-African Americans > 60 (> 60)
[2016-05-18] MEDS: *HR* Heparin 5,000 UNIT/ML VIAL SQ SCH ×3 (05:32→20:41)
[2016-05-18] MEDS: amLODIPine 5 MG TABLET PO SCH (07:50)
[2016-05-18] MEDS: Pantoprazole 40 MG VIAL IVP SCH (07:52)
[2016-05-18] MEDS: *HR* Morphine 2 MG/ML SYRINGE IVP PRN ×3 (07:52→20:41)
[2016-05-18] MEDS ORDERED: Aminoglycoside Consult 1 EACH MC ONE (09:48)
--- NOTE | 2016-05-18 13:32 | Internal Med Progress Note ---
Date of Encounter: 05/18/16 Time of Encounter: 13:30 - Assessment and plan (1) Mitral regurgitation Current Visit: No Status: Chronic Qualifiers: Cardiac valve disease etiology: etiology unspecified Qualified Code(s): I34.0 - Nonrheumatic mitral (valve) insufficiency (2) Tobacco abuse counseling Current Visit: No Status: Chronic Assessment and plan: chronic (3) Osteomyelitis Current Visit: Yes Status: Acute Assessment and plan: on vanco and zosyn surgery this afternooon Qualifiers: Osteomyelitis type: unspecified type Osteomyelitis location: foot Laterality: left Qualified Code(s): M86.9 - Osteomyelitis, unspecified (4) Thyroid disease Current Visit: Yes Status: Chronic Assessment and plan: tsh normal (5) Raynauds disease Current Visit: Yes Status: Chronic Qualifiers: Raynaud?s-associated gangrene presence: with gangrene Qualified Code(s): I73.01 - Raynaud's syndrome with gangrene - Subjective Interval history: patient with history of raunaud disease, mod- severe mitral regurgitation, patient was admitted with tue osteomyelitis and surgery is planned for this afternoon She on vanco and zosyn Seen by cardiology and ok for surgery from cardiology standpoint - Constitutional Vitals: Temp Pulse Resp BP Pulse Ox 97.5 F L 76 18 141/95 97 05/18/16 11:01 05/18/16 11:01 05/18/16 11:01 05/18/16 11:01 05/18/16 11:01 General appearance: Present: disheveled, A&O X 3, pleasant - Eye Eye exam: Present: PERRL, conjuntiva pink, sclera anicteric Pupils: Present: PERRL - Neck Neck exam general surgery: Present: supple, trachea midline. Absent: lymphadenopathy - Respiratory Respiratory exam: Present: CTAB. Absent: accessory muscle use, rales, rhonchi, wheezes - Cardiovascular Cardiovascular exam: Present: systolic murmur - GI/Abdominal GI/Abdominal exam: Present: soft - Extremities Exam Extremities exam: Present: tenderness, warm Internal Medicine: Result - Labs CBC & Chem 7: 05/18/16 03:20 05/18/16 03:20 Labs: Short CBC 05/18/16 Range/Units 03:20 WBC 7.9 (4.3-11.1) K/mcL Hgb 13.3 (11.5-15.4) g/dL Hct 39.8 (35.3-44.9) % Plt Count 213 (140-400) K/mcL Neutrophils # 5.3 (1.6-8.9) K/mcL BMP 05/18/16 03:20 Sodium 143 Potassium 3.7 Chloride 108 Carbon Dioxide 26 BUN 8 Creatinine 1.02 Glucose 99 Calcium 9.3 - ABG Interpretation ABG results: PT/INR, D-dimer PT 12.1 Seconds (9.4-12.1) 05/17/16 03:31 Consult Discharge Plan - Plan Referrals: Tessa Bee CNP [Partnered Physician] - 06/06/16 3:00 pm
--- NOTE | 2016-05-18 14:48 | Infectious Disease Progress No ---
Date of Encounter: 05/18/16 Time of Encounter: 14:46 - Assessment and Plan (1) Osteomyelitis Current Visit: Yes Status: Acute Location: Left foot third toe. Causative organism unclear. No cultures have been obtained. ESR elevated at 40. CRP 30. X-ray of the left foot showed findings consistent with cellulitis with possible abscess and OM of the third distal phalanx. The patient has no SIRS criteria. Antibiotics initiated in the ED and continued by the primary team. Podiatry consulted. Plan to take the patient to the OR today for amputation of the affected toe. Blood cultures drawn 05/17/16 are pending x 2 sets. Hold further antibiotics until after surgery. If the patient begins to exhibit signs of sepsis, re-start Vancomycin and Zosyn. Re-start Vanc and Zosyn post-op. Await intra-operative findings and cultures. Duration of treatment depends on the clinical picture, but the patient will likely require at least a few weeks of IV antibiotics. The patient reports that she is homeless and lives in a tent in the [facility] with her boyfriend. Consult social work professor for possible rehab placement on discharge as the patient will likely need IV antibiotics and this cannot be done if the patient is living in the [facility]. Discussed with GONZALO Farley. Monitor renal function and for drug toxicity and dose-adjust antibiotics. Will need weekly CBC, BMP, ESR, CRP for duration of antibiotic treatment. Will add Vanc trough if indicated. Will need weekly PICC care per protocol. Will need to follow up with ID two weeks post-discharge. Avoid insertion of central access until blood cultures are negative x 48 hours. Qualifiers: Osteomyelitis type: unspecified type Osteomyelitis location: foot Laterality: left Qualified Code(s): M86.9 - Osteomyelitis, unspecified (2) Cellulitis Current Visit: Yes Status: Acute Causative organism unclear. Location: Left foot, third toe. Antibiotic recommendations as above. Qualifiers: Site of cellulitis: extremity Site of cellulitis of extremity: toe Laterality: left Qualified Code(s): L03.032 - Cellulitis of left toe (3) Hypokalemia Current Visit: Yes Status: Resolved (4) Mitral regurgitation Current Visit: No Status: Chronic Cardiology consulted. Recommendations reviewed. Cleared for surgery. Qualifiers: Cardiac valve disease etiology: etiology unspecified Qualified Code(s): I34.0 - Nonrheumatic mitral (valve) insufficiency (5) Raynauds disease Current Visit: Yes Status: Chronic Qualifiers: Raynaud?s-associated gangrene presence: with gangrene Qualified Code(s): I73.01 - Raynaud's syndrome with gangrene (6) Thyroid disease Current Visit: Yes Status: Chronic (7) Hypertension Current Visit: No Status: Chronic Qualifiers: Hypertension type: essential hypertension Qualified Code(s): I10 - Essential (primary) hypertension - Subjective Interval history: Patient seen and examined. No acute events noted overnight. Patient lying in bed during exam. She complains of severe pain to the left foot and ankle. She denies any fevers or chills or rigors. She denies any chest pain, shortness of breath, or cough. She denies nausea, vomiting, diarrhea, or constipation. She denies abdominal pain or appetite changes. She is currently nothing by mouth for surgery later today. She denies any urinary complaints. Denies oral thrush or any skin lesions. Infect Dis PN-Objective Data - Labs CBC & Chem 7: 05/18/16 03:20 05/18/16 03:20 Labs: Laboratory Results - last 24 hr 05/17/16 05/18/16 05/18/16 17:02 03:20 03:20 WBC 7.9 RBC 4.55 Hgb 13.3 Hct 39.8 MCV 87.5 MCH 29.2 MCHC 33.4 RDW 13.4 Plt Count 213 MPV 11.5 Immature Gran % 0.4 Seg Neutrophils % 66.7 Lymphocytes % 20.9 Monocytes % 8.4 Eosinophils % 3.2 Basophils % 0.4 Neutrophils # 5.3 Lymphocytes # 1.7 Monocytes # 0.7 Eosinophils # 0.3 Basophils # 0.0 ESR 45 H Sodium Potassium Chloride Carbon Dioxide BUN Creatinine Est GFR ( Amer) Est GFR (Non-Af Amer) BUN/Creatinine Ratio Glucose Calculated Osmolality Calcium C-Reactive Protein 30 H Vancomycin Trough 05/18/16 05/18/16 03:20 07:42 WBC RBC Hgb Hct MCV MCH MCHC RDW Plt Count MPV Immature Gran % Seg Neutrophils % Lymphocytes % Monocytes % Eosinophils % Basophils % Neutrophils # Lymphocytes # Monocytes # Eosinophils # Basophils # ESR Sodium 143 Potassium 3.7 Chloride 108 Carbon Dioxide 26 BUN 8 Creatinine 1.02 Est GFR ( Amer) > 60 Est GFR (Non-Af Amer) > 60 BUN/Creatinine Ratio 8 Glucose 99 Calculated Osmolality 294 Calcium 9.3 C-Reactive Protein Vancomycin Trough 5.9 L Exam - Constitutional Vitals: Temp Pulse Resp BP Pulse Ox 97.5 F L 76 18 141/95 97 05/18/16 11:01 05/18/16 11:01 05/18/16 11:01 05/18/16 11:01 05/18/16 11:01 General appearance: average body habitus, cooperative, no acute distress - Head Head exam: Present: atraumatic, normal inspection, normocephalic - Eye Eye exam: Present: EOMI, normal appearance, PERRL Pupils: Present: normal accommodation - ENT ENT exam: Present: mucous membranes moist - Neck Neck exam: Present: normal inspection - Respiratory Respiratory exam: Present: CTAB. Absent: rales, respiratory distress, rhonchi, wheezes - Cardiovascular Cardiovascular exam: Present: RRR, +S1, +S2 - GI/Abdominal GI/Abdominal exam: Present: normal bowel sounds, soft. Absent: distended, tenderness - Extremities Exam Extremities exam: Present: pedal edema (Trace left lower extremity), tenderness (Left foot third toe). Absent: joint swelling Additional comments: Left foot dressing clean, dry, and intact. - Neurological Exam Neurological exam: Present: alert, oriented X3, no focal deficits - Psychiatric Psychiatric exam: Present: normal affect, normal mood - Skin Skin exam: Present: dry, intact, normal color, warm Consult Discharge Plan - Plan Referrals: Tessa Bee CNP [Partnered Physician] - 06/06/16 3:00 pm
[2016-05-18] MEDS ORDERED: Bupivacaine/Clonidine Syringe 1 EACH SYRINGE ONE ×2 (16:29→17:45)
--- NOTE | 2016-05-18 16:29 | Anesthesia Evaluation PreOp ---
<Chinmay Steven Cody - Last Filed: 05/18/16 16:48> Date of Encounter: 05/18/16 Time of Encounter: 16:48 - Past History Planned Operation: 3rd L toe amputation Cardiac History: CHF (PAULINO June 2015 shows EF 60% and mod MR), Other (Cardiology consult ... proceed with surgery without any further cardiac testing ... follow up in cardiology clinic in 2-3 weeks) Pulmonary History: Smoker [employer]ENT[employer] History: Denies Any Significant HX Other Medical History: Thyroid Alcohol Use: none Drug use: none Medications and Allergies Acetaminophen [Tylenol] 500 mg PO Q6HR PRN 05/16/16 [History] Allergies Cyclobenzaprine [From Flexeril] Allergy (Verified 03/17/15 16:31) Numbness tramadol Allergy (Verified 03/17/15 16:31) Rash Possible muscle relaxer Adverse Reaction (Uncoded 12/14/14 15:06) Numbness - Meds/Allergy Pre-op Review Medications Reviewed: Yes Allergies Reviewed: Yes Beta Blockers on Current Med List: No Anesthesia Results - Labs 05/18/16 03:20 05/18/16 03:20 - Imaging EKG: report reviewed, image reviewed (SR with sinus arrhythmia) Anesthesia Exam Vital Signs/O2 Sat/Glucose, Most Current Temp Pulse Resp BP Pulse Ox 05/18/16 15:05 97.9 F 81 14 144/93 98 Weight: 82 kg Anesthesia Assess/Plan ASA Score: 3 Modified Sridhar Scale for Level of Consciousness: Cooperative, oriented, and tranquil Anesthetic Plan: Precautions Monitoring Plan: Standard Monitors Recovery Plan: PACU <Billie Iyer - Last Filed: 05/18/16 17:04> - Past History Anesthesia History: No Prior Anesthetic Complications Anesthesia Results - Labs 05/18/16 03:20 05/18/16 03:20 Anesthesia Exam - HEENT Pupil (Motor): Pupils equal, EOMI Mallampati: II Teeth: Normal Oral Opening: Greater than 3 - WO[employer]ENT[employer]IC LOC: Oriented [employer] Motor: Normal RUE, Normal LUE, Normal RLE, Normal LLE, Normal Face - Cardiac Rhythm: Regular Murmur: None - Pulmonary Breath Sounds: bilateral Clear Respiratory Effort: Symmetrical Anesthesia Assess/Plan Anesthetic Plan: MAC
[2016-05-18 16:47] LABS: Amphetamine Screen,Urine Negative ng/mL (Cutoff=1000); Barbiturate Screen,Urine Negative ng/mL (Cutoff=200); Benzodiazepines Screen,Urine Negative ng/mL (Cutoff=200); Cannabinoid Screen,Urine Negative ng/mL (Cutoff = 50); Cocaine Screen,Urine Negative ng/mL (Cutoff= 300); Opiate Screen,Urine Positive ng/mL (Cutoff=300); Phencyclidine Screen,Urine Negative ng/mL (Cutoff=25)
[2016-05-18] MEDS ORDERED: Lidocaine -MPF 2% 5 ML VIAL INFILT ONE (16:50)
[2016-05-18] MEDS ORDERED: *HR* Propofol 200 MG/20 ML VIAL IVP ONE ×2 (17:10→17:14)
[2016-05-18] MEDS ORDERED: *HR* FentaNYL (PF) 100 MCG/2 ML VIAL ONE (17:10)
[2016-05-18] MEDS ORDERED: *HR* Midazolam HCl 2 MG/2 ML VIAL ONE (17:10)
[2016-05-18] MEDS ORDERED: Ketamine *HR* 500 MG/10 ML MDV ONE (17:36)
--- NOTE | 2016-05-18 18:17 | Anesthesia Evaluation Post Op ---
Date of Encounter: 05/18/16 Time of Encounter: 18:15 - Vital Signs Vital Signs: HR 102 O2 100% BP 149/102 RR 18 on 2L NC - Lungs Lungs: Clear Ascult./Percussion - Airway Airway: Non-obstructed - Cardiovascular Regular Rate - Mental Status Mental Status: Alert & Oriented, Answers Appropriately - Pain Pain Scale: 2 - Nausea Vomiting Nausea Vomiting: Not Present - Hydration Hydration: NPO - Discharge PostOp Status: Transfer Patient to floor
--- NOTE | 2016-05-18 18:18 | Orthopedic Operative Note ---
Date of procedure: 05/18/16 Pre-op diagnosis: Osteomyelitis total #3 left Post-op diagnosis: same Procedure: 05/18/16 18:11 #1 amputation toe, #3 left foot at metatarsophalangeal joint. Implants: None Complications: None Anesthesia: MAC Local Anesthetics: 0.25% Sensorcaine HCL SubQ (cc) Surgeon: Chinmay Cox Estimated blood loss (cc): 5 Tourniquet Time (Minutes): 0 Specimen: Toe #3 left Condition: stable Disposition: floor Procedure in Detail: 05/18/16 18:12 Detail summary of procedure: Patient brought to surgical suite. A sign in procedure was performed. Patient was transferred to the surgical table and positioned properly safely and securely. Left foot elevated on foam block. No tourniquet was used. Anesthetic timeout taken. Patient was sedated. Left foot ankle was prepped with alcohol 3 times. Modified ankle block carried out without difficulty or complication. Left foot prepped and draped in the usual sterile manner. Surgical timeout taken. The third toe was inspected and found to be bulbous fluctuant with necrosis of the dorsal aspect of the third toe. Upon close inspection it was then decided to remove the toe in its, entirety. My index of suspicion was high, for failure of a partial resection of the digit. A standard racquet incision was drawn with a skin scribe beginning of the dorsal aspect of the MTPJ #3 left foot and brought circumferentially around the third toe and beating at the sulcus. Satisfied we had profound anesthesia a standard incision was begun on the dorsal aspect of the third MTPJ brought circumferentially around the digit meeting at the sulcus midline on the plantar aspect of the toe. These incisions were made cleanly and directly down to bone. Extensor and flexor tendons were divided. Dissection was at the level of the periosteum proximally to the MTPJ where the capsular structures were divided cleanly with a #15 scalpel blade and a Metzenbaum scissor. The toe was then extirpated without difficulty the wound was inspected and found to have no evidence of necrosis and infection, purulent drainage or any other complication. The wound was noted to bleed freely without necessitating use of the Bovie or ligature. The wound was thoroughly irrigated with sterile saline. Upon inspection of the wound again it was decided to use PRP which was sprayed into the wound without difficulty. The wound was then closed with interrupted sutures of 3-0 Prolene. Skin edges were noted to be viable and capillary refill time immediate. The wound was then dressed with sterile Adaptic 4 x 4's and Kerlix and a mild compressive dressing. Patient tolerated the procedure well and was holding room in good condition with vital signs stable S loss less than 5 mL complications none.
[2016-05-18] MEDS ORDERED: Acetaminophen 325 MG TABLET PO PRN (18:28)
[2016-05-18] MEDS ORDERED: Ondansetron 4 MG/2 ML VIAL IVP PRN (18:28)
[2016-05-18] MEDS ORDERED: Naloxone 0.4 MG/ML INJ IVP PRN (18:28)
[2016-05-19] MEDS: *HR* Morphine 2 MG/ML SYRINGE IVP PRN ×4 (00:31→21:42)
[2016-05-19 04:14] LABS: BUN/Creatinine Ratio 11 (6-26); Blood Urea Nitrogen 13 mg/dL (7-20); Calcium 8.9 mg/dL (8.6-10.8); Carbon Dioxide 26 mEq/L (19-29); Chloride 107 mEq/L (98-109); Glucose 113 mg/dL (70-99); Magnesium 1.7 mg/dL (1.6-2.6); Osmolality,Calculated 293 (280-300); Potassium 3.7 mEq/L (3.5-4.5); Sodium 141 mEq/L (136-145); eGFR For African Americans > 60 (> 60); eGFR For Non-African Americans 54 (> 60)
[2016-05-19] MEDS: *HR* Heparin 5,000 UNIT/ML VIAL SQ SCH ×3 (06:26→21:42)
[2016-05-19] MEDS: Nicotine 14 MG PATCH.TD24 TD PRN (08:57)
[2016-05-19] MEDS: Pantoprazole 40 MG VIAL IVP SCH (08:58)
[2016-05-19] MEDS: amLODIPine 5 MG TABLET PO SCH (08:58)
[2016-05-19] MEDS: *HR* HYDROcodone/Acet 5/325 mg TABLET PO PRN ×3 (08:58→18:46)
--- NOTE | 2016-05-19 09:38 | Internal Med Progress Note ---
Date of Encounter: 05/19/16 Time of Encounter: 09:36 - Assessment and plan (1) Mitral regurgitation Current Visit: No Status: Chronic Assessment and plan: chronic moderate regurgitation medical treament Qualifiers: Cardiac valve disease etiology: etiology unspecified Qualified Code(s): I34.0 - Nonrheumatic mitral (valve) insufficiency (2) Tobacco abuse counseling Current Visit: No Status: Chronic Assessment and plan: chronic (3) Osteomyelitis Current Visit: Yes Status: Acute Assessment and plan: s/p toe amputation yesterday ID following continue vanc and zosyn Qualifiers: Osteomyelitis type: unspecified type Osteomyelitis location: foot Laterality: left Qualified Code(s): M86.9 - Osteomyelitis, unspecified (4) Thyroid disease Current Visit: Yes Status: Chronic Assessment and plan: tsh normal (5) Raynauds disease Current Visit: Yes Status: Chronic Qualifiers: Raynaud?s-associated gangrene presence: with gangrene Qualified Code(s): I73.01 - Raynaud's syndrome with gangrene - Subjective Interval history: patient with history of raunaud disease, mod- severe mitral regurgitation, patient was admitted with tue osteomyelitis and surgery is planned for this afternoon She on vanco and zosyn Seen by cardiology and ok for surgery from cardiology standpoint patient underwent toe amputation yesterday complains of toes pain crea is more elevated - Constitutional Vitals: Temp Pulse Resp BP Pulse Ox 98.1 F 113 18 142/87 98 05/19/16 07:18 05/19/16 07:18 05/19/16 07:18 05/19/16 07:18 05/19/16 07:18 General appearance: Present: disheveled, A&O X 3, pleasant - Eye Eye exam: Present: PERRL, conjuntiva pink, sclera anicteric Pupils: Present: PERRL - Neck Neck exam general surgery: Present: supple, trachea midline. Absent: lymphadenopathy - Respiratory Respiratory exam: Present: CTAB. Absent: accessory muscle use, rales, rhonchi, wheezes - GI/Abdominal GI/Abdominal exam: Present: normal bowel sounds, soft, no peritoneal signs. Absent: distended, tenderness - Extremities Exam Extremities exam: Present: warm, radial pulses palpable and symetrical. Absent : calf tenderness, cyanotic, pedal edema Internal Medicine: Result - Labs CBC & Chem 7: 05/18/16 03:20 05/19/16 03:33 Labs: BMP 05/19/16 03:33 Sodium 141 Potassium 3.7 Chloride 107 Carbon Dioxide 26 BUN 13 Creatinine 1.21 H Glucose 113 H Calcium 8.9 - ABG Interpretation ABG results: PT/INR, D-dimer PT 12.1 Seconds (9.4-12.1) 05/17/16 03:31 Consult Discharge Plan - Plan Referrals: Tessa Bee CNP [Partnered Physician] - 06/06/16 3:00 pm
--- NOTE | 2016-05-19 12:46 | Podiatry Progress Note ---
Date of Encounter: 05/19/16 Time of Encounter: 12:44 - Assessment and Plan (1) Acute osteomyelitis of toe of left foot Current Visit: Yes Status: Acute Assessment: #1 status post amputation toe #3 left foot with history of Raynaud' s phenomenon, complicated by atrial and aortic valve regurgitation. Plan: #1 keep dressing dry clean and intact for 24 hours will change dressing tomorrow. Continue discharge planning. Subjective Principal diagnosis: Osteomyelitis toe #3 left foot Interval history: #1 postop day #1 amputation toe #3 left foot patient without nausea vomiting fever chills chest pain shortness of breath. Dressing intact. Objective - Vital Signs Vital Signs: Vital Signs Temp Pulse Resp BP Pulse Ox 05/19/16 11:11 98.4 F 111 18 160/102 98 05/19/16 07:18 98.1 F 113 18 142/87 98 05/19/16 05:08 98.2 F 100 16 122/83 95 05/18/16 20:30 97.9 F 112 16 155/95 98 05/18/16 19:43 143/86 05/18/16 19:41 97 05/18/16 19:30 98 F 104 16 164/114 98 05/18/16 19:02 97.9 F 76 16 163/118 97 05/18/16 18:34 97.6 F 76 16 164/92 97 05/18/16 15:05 97.9 F 81 14 144/93 98 Intake and Output 05/18/16 05/19/16 05/19/16 23:59 07:59 15:59 Intake Total 120 / 120 Output Total 200 / 200 Balance -200 / -200 120 / 120 Intake: Oral 120 / 120 Output: Urine 200 / 200 Other: Meal Breakfast Percent of Meal Consumed 100% - Exam Exam: #1 patient resting in bed no complaints of pain. Explains the patient's IV morphine as a regular basis is not acceptable to this point that she needs to convert to oral agents we anticipate planning discharge to extended care facility in 48 hours for IV morphine will not be available. - Lab Result Diagrams: 05/18/16 03:20 05/19/16 03:33 Labs: Abnormal lab results ESR 45 mm/hr (0-15) H 05/18/16 03:20 Creatinine 1.21 mg/dL (0.57-1.11) H 05/19/16 03:33 Est GFR (Non-Af Amer) 54 (> 60) L 05/19/16 03:33 Glucose 113 mg/dL (70-99) H 05/19/16 03:33 ALT 57 Units/L (0-55) H 05/17/16 03:31 C-Reactive Protein 30 mg/L (Less than 5) H 05/17/16 17:02 Albumin 3.3 g/dL (3.5-5.0) L 05/17/16 03:31 Globulin 3.9 g/dL (2.4-3.5) H 05/17/16 03:31 Albumin/Globulin Ratio 0.8 (1.1-2.2) L 05/17/16 03:31 Vancomycin Trough 5.9 mcg/mL (10-20) L 05/18/16 07:42 Urine Opiates Screen Positive ng/mL ([id number]=[id number]) H 05/18/16 16:24 Microbiology, Last 48 Hours 05/17/16 17:02 Blood Culture - Preliminary Peripheral Venipuncture No growth. 05/17/16 17:02 Blood Culture - Preliminary Peripheral Venipuncture No growth. Consult Discharge Plan - Plan Referrals: Tessa Bee CNP [Partnered Physician] - 06/06/16 3:00 pm
[2016-05-20] MEDS: *HR* HYDROcodone/Acet 5/325 mg TABLET PO PRN ×4 (04:32→23:40)
[2016-05-20 04:49] LABS: Hematocrit 36.1 % (35.3-44.9); Mean Corpuscular HGB Conc 33.2 g/dL (31.6-35.5); Mean Corpuscular Hemoglobin 29.4 pg (28.0-33.3); Mean Corpuscular Volume 88.5 fL (83.0-100.0); Mean Platelet Volume 11.5 fL (9.4-12.4); Platelet Count 207 K/mcL (140-400); Red Blood Count 4.08 M/mcL (3.82-4.97); Red Cell Distribution Width 13.3 % (11.5-14.5)
[2016-05-20 05:04] LABS: BUN/Creatinine Ratio 13 (6-26); Blood Urea Nitrogen 15 mg/dL (7-20); Calcium 8.7 mg/dL (8.6-10.8); Carbon Dioxide 25 mEq/L (19-29); Chloride 108 mEq/L (98-109); Glucose 115 mg/dL (70-99); Osmolality,Calculated 298 (280-300); Potassium 3.7 mEq/L (3.5-4.5); Sodium 143 mEq/L (136-145); eGFR For African Americans > 60 (> 60); eGFR For Non-African Americans 58 (> 60)
[2016-05-20] MEDS: *HR* Heparin 5,000 UNIT/ML VIAL SQ SCH ×3 (05:48→22:34)
[2016-05-20] MEDS: *HR* Morphine 2 MG/ML SYRINGE IVP PRN ×2 (08:15→20:38)
[2016-05-20] MEDS: Pantoprazole 40 MG VIAL IVP SCH (08:15)
[2016-05-20] MEDS: amLODIPine 5 MG TABLET PO SCH (08:15)
--- NOTE | 2016-05-20 10:39 | Podiatry Progress Note ---
Date of Encounter: 05/20/16 Time of Encounter: 10:38 - Assessment and Plan (1) Acute osteomyelitis of toe of left foot Current Visit: Yes Status: Acute Assessment: #1 status post amputation toe #3 left foot with history of Raynaud' s phenomenon, complicated by atrial and aortic valve regurgitation. Plan: #1 change dressing today with Adaptic 4 x 4's Kerlix #2 continue discharge planning, for placement for rehabilitation Subjective Principal diagnosis: Osteomyelitis toe #3 left foot Interval history: #1 postop day #2 amputation toe #3 left foot patient without nausea vomiting fever chills chest pain shortness of breath. Dressing intact. Objective - Vital Signs Vital Signs: Vital Signs Temp Pulse Resp BP Pulse Ox 05/20/16 08:15 92 L 05/20/16 07:33 98.2 F 103 17 127/88 92 L 05/20/16 03:36 98.6 F 107 16 138/90 98 05/19/16 21:40 97.5 F L 102 16 137/93 100 05/19/16 18:39 97.8 F 123 16 164/73 95 05/19/16 15:08 97.4 F L 111 18 155/114 98 05/19/16 11:11 98.4 F 111 18 160/102 98 Intake and Output 05/19/16 05/20/16 05/20/16 23:59 07:59 15:59 Intake Total 540 / 540 480 / 480 Output Total 250 / 250 Balance 290 / 290 480 / 480 Intake: Oral 540 / 540 480 / 480 Output: Urine 250 / 250 Other: Meal Dinner Breakfast Percent of Meal Consumed 100% 100% Weight 59.058 kg Patient Weight 05/20/16 23:59 Weight 59.058 kg - Lab Result Diagrams: 05/20/16 03:51 05/20/16 03:51 Labs: Abnormal lab results ESR 45 mm/hr (0-15) H 05/18/16 03:20 Creatinine 1.14 mg/dL (0.57-1.11) H 05/20/16 03:51 Est GFR (Non-Af Amer) 58 (> 60) L 05/20/16 03:51 Glucose 115 mg/dL (70-99) H 05/20/16 03:51 ALT 57 Units/L (0-55) H 05/17/16 03:31 C-Reactive Protein 30 mg/L (Less than 5) H 05/17/16 17:02 Albumin 3.3 g/dL (3.5-5.0) L 05/17/16 03:31 Globulin 3.9 g/dL (2.4-3.5) H 05/17/16 03:31 Albumin/Globulin Ratio 0.8 (1.1-2.2) L 05/17/16 03:31 Vancomycin Trough 5.9 mcg/mL (10-20) L 05/18/16 07:42 Urine Opiates Screen Positive ng/mL ([id number]=[id number]) H 05/18/16 16:24 Microbiology, Last 48 Hours 05/17/16 17:02 Blood Culture - Preliminary Peripheral Venipuncture No growth. 05/17/16 17:02 Blood Culture - Preliminary Peripheral Venipuncture No growth. Consult Discharge Plan - Plan Referrals: Tessa Bee CNP [Partnered Physician] - 06/06/16 3:00 pm
--- NOTE | 2016-05-20 16:07 | Internal Med Progress Note ---
Date of Encounter: 05/20/16 Time of Encounter: 16:05 - Assessment and plan (1) Mitral regurgitation Current Visit: No Status: Chronic Assessment and plan: moderate regurgitation clinically well compensated Qualifiers: Cardiac valve disease etiology: etiology unspecified Qualified Code(s): I34.0 - Nonrheumatic mitral (valve) insufficiency (2) Tobacco abuse counseling Current Visit: No Status: Chronic Assessment and plan: chronic (3) Osteomyelitis Current Visit: Yes Status: Acute Assessment and plan: s/p toe amputation no complication Qualifiers: Osteomyelitis type: unspecified type Osteomyelitis location: foot Laterality: left Qualified Code(s): M86.9 - Osteomyelitis, unspecified (4) Thyroid disease Current Visit: Yes Status: Chronic Assessment and plan: tsh normal (5) Raynauds disease Current Visit: Yes Status: Chronic Qualifiers: Raynaud?s-associated gangrene presence: with gangrene Qualified Code(s): I73.01 - Raynaud's syndrome with gangrene - Subjective Interval history: patient with history of raunaud disease, mod- severe mitral regurgitation, patient was admitted with tue osteomyelitis and surgery is planned for this afternoon She on vanco and zosyn Seen by cardiology and ok for surgery from cardiology standpoint patient underwent toe amputation yesterday complains of toes pain crea is more elevated no new issues awaiting rehab transfer tomorrow - Constitutional Vitals: Temp Pulse Resp BP Pulse Ox 97.5 F L 66 18 131/91 98 05/20/16 15:34 05/20/16 15:34 05/20/16 15:34 05/20/16 15:34 05/20/16 15:34 General appearance: Present: disheveled, A&O X 3, pleasant - Eye Eye exam: Present: PERRL, conjuntiva pink, sclera anicteric Pupils: Present: PERRL - Neck Neck exam general surgery: Present: supple, trachea midline. Absent: lymphadenopathy - Respiratory Respiratory exam: Present: CTAB. Absent: accessory muscle use, rales, rhonchi, wheezes - Cardiovascular Cardiovascular exam: Present: RRR, +S1, +S2. Absent: diastolic murmur, gallop, rubs, systolic murmur - GI/Abdominal GI/Abdominal exam: Present: normal bowel sounds, soft, no peritoneal signs. Absent: distended, tenderness - Extremities Exam Extremities exam: Present: warm, radial pulses palpable and symetrical. Absent : calf tenderness, cyanotic, pedal edema Internal Medicine: Result - Labs CBC & Chem 7: 05/20/16 03:51 05/20/16 03:51 Labs: Short CBC 05/20/16 Range/Units 03:51 WBC 7.6 (4.3-11.1) K/mcL Hgb 12.0 (11.5-15.4) g/dL Hct 36.1 (35.3-44.9) % Plt Count 207 (140-400) K/mcL BMP 05/20/16 03:51 Sodium 143 Potassium 3.7 Chloride 108 Carbon Dioxide 25 BUN 15 Creatinine 1.14 H Glucose 115 H Calcium 8.7 - ABG Interpretation ABG results: PT/INR, D-dimer PT 12.1 Seconds (9.4-12.1) 05/17/16 03:31 Consult Discharge Plan - Plan Referrals: Tessa Bee CNP [Partnered Physician] - 06/06/16 3:00 pm
[2016-05-20] MEDS: Nicotine 14 MG PATCH.TD24 TD PRN (19:34)
[2016-05-21] MEDS: *HR* Heparin 5,000 UNIT/ML VIAL SQ SCH ×3 (05:03→21:04)
[2016-05-21] MEDS: *HR* HYDROcodone/Acet 5/325 mg TABLET PO PRN ×3 (05:03→17:26)
[2016-05-21] MEDS: amLODIPine 5 MG TABLET PO SCH (09:23)
[2016-05-21] MEDS: Pantoprazole 40 MG VIAL IVP SCH (09:24)
--- NOTE | 2016-05-21 12:41 | Internal Med Progress Note ---
Date of Encounter: 05/21/16 Time of Encounter: 12:39 - Assessment and plan (1) Mitral regurgitation Current Visit: No Status: Chronic Assessment and plan: stable not in chf Qualifiers: Cardiac valve disease etiology: etiology unspecified Qualified Code(s): I34.0 - Nonrheumatic mitral (valve) insufficiency (2) Tobacco abuse counseling Current Visit: No Status: Chronic Assessment and plan: chronic (3) Osteomyelitis Current Visit: Yes Status: Acute Assessment and plan: s/p toe amputation awaiting rehab transfer after pt/ot evaluation Qualifiers: Osteomyelitis type: unspecified type Osteomyelitis location: foot Laterality: left Qualified Code(s): M86.9 - Osteomyelitis, unspecified (4) Thyroid disease Current Visit: Yes Status: Chronic (5) Raynauds disease Current Visit: Yes Status: Chronic Qualifiers: Raynaud?s-associated gangrene presence: with gangrene Qualified Code(s): I73.01 - Raynaud's syndrome with gangrene - Subjective Interval history: patient with history of raunaud disease, mod- severe mitral regurgitation, patient was admitted with tue osteomyelitis and surgery is planned for this afternoon She on vanco and zosyn Seen by cardiology and ok for surgery from cardiology standpoint patient underwent toe amputation yesterday complains of toes pain crea is more elevated no new issues awaiting rehab transfer tomorrow awaiting rehab transfer approval - Constitutional Vitals: Temp Pulse Resp BP Pulse Ox 98.4 F 93 16 124/74 98 05/21/16 11:46 05/21/16 11:46 05/21/16 11:46 05/21/16 11:46 05/21/16 11:46 General appearance: Present: disheveled, A&O X 3, pleasant - Eye Eye exam: Present: PERRL, conjuntiva pink, sclera anicteric Pupils: Present: PERRL - Neck Neck exam general surgery: Present: supple, trachea midline. Absent: lymphadenopathy - Respiratory Respiratory exam: Present: CTAB. Absent: accessory muscle use, rales, rhonchi, wheezes - Cardiovascular Cardiovascular exam: Present: RRR, +S1, +S2. Absent: diastolic murmur, gallop, rubs, systolic murmur - GI/Abdominal GI/Abdominal exam: Present: normal bowel sounds, soft, no peritoneal signs. Absent: distended, tenderness Internal Medicine: Result - Labs CBC & Chem 7: 05/20/16 03:51 05/20/16 03:51 - ABG Interpretation ABG results: PT/INR, D-dimer PT 12.1 Seconds (9.4-12.1) 05/17/16 03:31 Consult Discharge Plan - Plan Referrals: Tessa Bee CNP [Partnered Physician] - 06/06/16 3:00 pm
--- NOTE | 2016-05-21 13:41 | Infectious Disease Progress No ---
Date of Encounter: 05/21/16 Time of Encounter: 13:39 - Assessment and Plan (1) Osteomyelitis Current Visit: Yes Status: Acute Location: Left foot third toe. Causative organism unclear. No cultures obtained. Intra-operative pathology pending. ESR elevated at 40. CRP 30. X-ray of the left foot showed findings consistent with cellulitis with possible abscess and OM of the third distal phalanx. The patient has no SIRS criteria. Podiatry consulted. Status post amputation of toe #3 on the left foot at MTP joint. Operative report reviewed. No evidence of metatarsal involvement. Pathology pending. No cultures were obtained. Blood cultures drawn 05/17/16 are NGTD x 2 sets. Continue Vancomycin IV. Pharmacy to dose. Goal trough approximately 15 Continue Zosyn 3.375 grams IV Q8H. Duration of treatment depends on the clinical picture, but the patient will likely require at least a few weeks of IV antibiotics. Continue Vancomycin and switch Zosyn to Cefepime 2 grams IV Q12H to complete course of treatment. The patient reports that she is homeless and lives in a tent in the [facility] with her boyfriend. non emergency services ambulance driver consulted and is following. Working on getting patient placed. Monitor renal function and for drug toxicity and dose-adjust antibiotics. Will need weekly CBC, BMP, ESR, CRP for duration of antibiotic treatment. Will add Vanc trough if indicated. Will need weekly PICC care per protocol. Will need to follow up with ID two weeks post-discharge. Okay to place PICC. Consult VAT. Qualifiers: Osteomyelitis type: unspecified type Osteomyelitis location: foot Laterality: left Qualified Code(s): M86.9 - Osteomyelitis, unspecified (2) Cellulitis Current Visit: Yes Status: Acute Causative organism unclear. Location: Left foot, third toe. Antibiotic recommendations as above. Qualifiers: Site of cellulitis: extremity Site of cellulitis of extremity: toe Laterality: left Qualified Code(s): L03.032 - Cellulitis of left toe (3) Hypokalemia Current Visit: Yes Status: Resolved (4) Mitral regurgitation Current Visit: No Status: Chronic Cardiology consulted. Recommendations reviewed. Cleared for surgery. Qualifiers: Cardiac valve disease etiology: etiology unspecified Qualified Code(s): I34.0 - Nonrheumatic mitral (valve) insufficiency (5) Raynauds disease Current Visit: Yes Status: Chronic Qualifiers: Raynaud?s-associated gangrene presence: with gangrene Qualified Code(s): I73.01 - Raynaud's syndrome with gangrene (6) Thyroid disease Current Visit: Yes Status: Chronic (7) Hypertension Current Visit: No Status: Chronic Qualifiers: Hypertension type: essential hypertension Qualified Code(s): I10 - Essential (primary) hypertension - Subjective Interval history: Patient seen and examined. Weekend notes reviewed. No acute events noted. Patient lying in bed during exam. She complains of pain to the left foot. She denies any fevers or chills or rigors. She reports some intermittent chest pain , but denies shortness of breath or cough. She denies nausea, vomiting, diarrhea , or constipation. She denies abdominal pain or appetite changes. She denies any urinary complaints. Denies oral thrush or any skin lesions. Infect Dis PN-Objective Data - Labs CBC & Chem 7: 05/20/16 03:51 05/20/16 03:51 Cultures: Cultures 05/17/16 17:02 Blood Culture - Preliminary Peripheral Venipuncture No growth. 05/17/16 17:02 Blood Culture - Preliminary Peripheral Venipuncture No growth. Serology 05/18/16 Range/Units 16:24 Urine Test Negative (Negative) Exam - Constitutional Vitals: Temp Pulse Resp BP Pulse Ox 98.4 F 93 16 124/74 98 05/21/16 11:46 05/21/16 11:46 05/21/16 11:46 05/21/16 11:46 05/21/16 11:46 General appearance: cooperative, no acute distress, obese - Head Head exam: Present: atraumatic, normal inspection, normocephalic - Eye Eye exam: Present: EOMI, normal appearance, PERRL Pupils: Present: normal accommodation - ENT ENT exam: Present: mucous membranes moist - Neck Neck exam: Present: normal inspection - Respiratory Respiratory exam: Present: CTAB. Absent: rales, respiratory distress, rhonchi, wheezes - Cardiovascular Cardiovascular exam: Present: RRR, +S1, +S2 - GI/Abdominal GI/Abdominal exam: Present: distended (obese), normal bowel sounds, soft. Absent: tenderness - Extremities Exam Extremities exam: Present: normal inspection, tenderness (left foot). Absent: joint swelling, pedal edema Additional comments: Left foot dressing C/D/I. No erythema or marked edema noted above the dressing. - Neurological Exam Neurological exam: Present: alert, oriented X3, no focal deficits - Psychiatric Psychiatric exam: Present: normal affect, normal mood - Skin Skin exam: Present: dry, intact, normal color, warm Consult Discharge Plan - Plan Referrals: Tessa Bee CNP [Partnered Physician] - 06/06/16 3:00 pm
[2016-05-21] MEDS ORDERED: Lidocaine -MPF 1% 5 ML AMPUL INFILT ONE (13:49)
[2016-05-21] MEDS: *HR* Morphine 2 MG/ML SYRINGE IVP PRN (21:04)
[2016-05-22] MEDS: *HR* HYDROcodone/Acet 5/325 mg TABLET PO PRN ×5 (01:01→21:19)
[2016-05-22] MEDS: *HR* Morphine 2 MG/ML SYRINGE IVP PRN (04:50)
[2016-05-22] MEDS: *HR* Heparin 5,000 UNIT/ML VIAL SQ SCH ×3 (04:50→21:18)
[2016-05-22] MEDS ORDERED: Vancomycin 1,500 MG in D5% in Water 250 ML IVPB SCH ×2 (09:00→13:00)
[2016-05-22] MEDS: amLODIPine 5 MG TABLET PO SCH (09:30)
[2016-05-22] MEDS: Nicotine 14 MG PATCH.TD24 TD PRN ×2 (09:32→16:57)
[2016-05-22] MEDS: Pantoprazole 40 MG VIAL IVP SCH (09:34)
--- NOTE | 2016-05-22 11:36 | Infectious Disease Progress No ---
Date of Encounter: 05/22/16 Time of Encounter: 11:34 - Assessment and Plan (1) Osteomyelitis Current Visit: Yes Status: Acute Location: Left foot third toe. Causative organism unclear. No cultures obtained. Intra-operative pathology pending. ESR elevated at 40. CRP 30. X-ray of the left foot showed findings consistent with cellulitis with possible abscess and OM of the third distal phalanx. The patient has no SIRS criteria. Podiatry consulted. Status post amputation of toe #3 on the left foot at MTP joint. Operative report reviewed. No evidence of metatarsal involvement. Pathology pending. No cultures were obtained. Blood cultures drawn 05/17/16 are negative x 2 sets. Antibiotics were not re-started after surgery. Re-started this morning. Continue Vancomycin IV. Pharmacy to dose. Goal trough approximately 15 Switched Zosyn to Cefepime 2 grams IV Q12H in preparation for discharge. Duration of treatment depends on the clinical picture, but the patient will likely require at least a few weeks of IV antibiotics given the patient's history of Raynaud's Syndrome I am concerned that we will not be able to reach adequate serum concentrations of antibiotics in the distal portion of the foot with oral antibiotics. Additionally, the patient has poor living conditions and is at high risk for re-infection without dressing changes and timely antibiotic administration. The patient reports that she is homeless and lives in a tent in the [facility] with her boyfriend. business services vice president consulted and is following. Working on getting patient placed. Monitor renal function and for drug toxicity and dose-adjust antibiotics. Will need weekly CBC, BMP, ESR, CRP for duration of antibiotic treatment. Will add Vanc trough if indicated. Will need weekly PICC care per protocol. Will need to follow up with ID two weeks post-discharge. PICC placed 05/21/16. Qualifiers: Osteomyelitis type: unspecified type Osteomyelitis location: foot Laterality: left Qualified Code(s): M86.9 - Osteomyelitis, unspecified (2) Cellulitis Current Visit: Yes Status: Acute Causative organism unclear. Location: Left foot, third toe. Antibiotic recommendations as above. Qualifiers: Site of cellulitis: extremity Site of cellulitis of extremity: toe Laterality: left Qualified Code(s): L03.032 - Cellulitis of left toe (3) Hypokalemia Current Visit: Yes Status: Resolved (4) Mitral regurgitation Current Visit: No Status: Chronic Cardiology consulted. Recommendations reviewed. Cleared for surgery. Qualifiers: Cardiac valve disease etiology: etiology unspecified Qualified Code(s): I34.0 - Nonrheumatic mitral (valve) insufficiency (5) Raynauds disease Current Visit: Yes Status: Chronic Qualifiers: Raynaud?s-associated gangrene presence: with gangrene Qualified Code(s): I73.01 - Raynaud's syndrome with gangrene (6) Thyroid disease Current Visit: Yes Status: Chronic (7) Hypertension Current Visit: No Status: Chronic Qualifiers: Hypertension type: essential hypertension Qualified Code(s): I10 - Essential (primary) hypertension - Subjective Interval history: Patient seen and examined. No acute events noted overnight. Patient lying in bed during exam. She complains of pain to the left foot. She reports a headache this morning. She denies any fevers or chills or rigors. She chest pain, shortness of breath, or cough. She complains of nausea earlier this morning with one episode of vomiting. She denies diarrhea or constipation. She denies abdominal pain or appetite changes. She denies any urinary complaints. Denies oral thrush or any skin lesions. Infect Dis PN-Objective Data - Labs CBC & Chem 7: 05/20/16 03:51 05/20/16 03:51 Cultures: Cultures 05/17/16 17:02 Blood Culture - Preliminary Peripheral Venipuncture No growth. 05/17/16 17:02 Blood Culture - Preliminary Peripheral Venipuncture No growth. Serology 05/18/16 Range/Units 16:24 Urine Test Negative (Negative) Exam - Constitutional Vitals: Temp Pulse Resp BP Pulse Ox 97.6 F 108 14 120/65 97 05/22/16 10:51 05/22/16 10:51 05/22/16 10:51 05/22/16 10:51 05/22/16 10:51 General appearance: cooperative, no acute distress, obese - Head Head exam: Present: atraumatic, normal inspection, normocephalic - Eye Eye exam: Present: EOMI, normal appearance, PERRL Pupils: Present: normal accommodation - ENT ENT exam: Present: mucous membranes moist - Neck Neck exam: Present: normal inspection - Respiratory Respiratory exam: Present: CTAB. Absent: rales, respiratory distress, rhonchi, wheezes - Cardiovascular Cardiovascular exam: Present: RRR, +S1, +S2 - GI/Abdominal GI/Abdominal exam: Present: distended (obese), normal bowel sounds, soft. Absent: tenderness - Extremities Exam Extremities exam: Present: tenderness (left foot). Absent: joint swelling, pedal edema Additional comments: Dressing to the left foot is C/D/I. - Neurological Exam Neurological exam: Present: alert, oriented X3, no focal deficits - Psychiatric Psychiatric exam: Present: normal affect, normal mood - Skin Skin exam: Present: dry, intact, normal color, warm Additional comments: PICC line noted to the RUE with transparent dressing C/D/I. Consult Discharge Plan - Plan Referrals: Tessa Bee CNP [Partnered Physician] - 06/06/16 3:00 pm
[2016-05-22] MEDS ORDERED: Vancomycin 1,500 MG in D5% in Water 250 ML IVPB ONE (13:00)
[2016-05-22] MEDS ORDERED: Vancomycin 1 EACH in EMPTY BAG 1 EACH IVPB SCH (13:00)
[2016-05-22] MEDS: metroNIDAZOLE 500 MG TABLET PO SCH ×3 (13:25→21:19)
--- NOTE | 2016-05-22 13:58 | Podiatry Progress Note ---
Date of Encounter: 05/22/16 Time of Encounter: 08:15 - Assessment and Plan (1) Raynauds disease Current Visit: Yes Status: Chronic Qualifiers: Raynaud?s-associated gangrene presence: with gangrene Qualified Code(s): I73.01 - Raynaud's syndrome with gangrene (2) Cellulitis Current Visit: Yes Status: Acute Qualifiers: Site of cellulitis: extremity Site of cellulitis of extremity: toe Laterality: left Qualified Code(s): L03.032 - Cellulitis of left toe (3) Osteomyelitis Current Visit: Yes Status: Acute Examined at bedside Dressing removed, surgical site examined and free of clinical signs of infection Painted to betadine, adaptic, 4x4 and kerlex applied Dressing may stay in place until appointment Will need to follow up in clinic in 1 week. Please obtain post op shoe for patient She is to be protective weight bearing Continue IV antibiotic per ID recommendation - thanks- ID instructions to go home on IV antibiotics for 2-3 weeks Explained to patient that if she continues to smoke these ulcerations will continue to occur Verbalized understanding. Qualifiers: Osteomyelitis type: unspecified type Osteomyelitis location: foot Laterality: left Qualified Code(s): M86.9 - Osteomyelitis, unspecified Subjective Principal diagnosis: Osteomyelitis toe #3 left foot Interval history: Patent is status post amputation toe #3 left foot with history of Raynaud's phenomenon, complicated by atrial and aortic valve regurgitation. Patient is resting comfortably on arrival to room. Dressing intact. Patient denies any pain at this time Objective - Vital Signs Vital Signs: Vital Signs Temp Pulse Resp BP Pulse Ox 05/22/16 10:51 97.6 F 108 14 120/65 97 05/22/16 07:22 98.0 F 100 14 116/77 97 05/22/16 00:02 98.1 F 106 16 140/92 97 05/21/16 19:21 98.1 F 98 20 134/78 96 05/21/16 15:36 97.9 F 70 16 130/84 95 Intake and Output 05/21/16 05/22/16 05/22/16 23:59 07:59 15:59 Intake Total 50 / 50 Balance 50 / 50 Intake: Oral 50 / 50 Other: Meal Breakfast Percent of Meal Consumed 15% # Voids 2 Weight 99.4 kg Patient Weight 05/22/16 23:59 Weight 99.4 kg - Exam Exam: General Examination: CONSTITUTIONAL: Alert, oriented, in no acute distress, non-toxic. EXTREMITIES: CFT 3 seconds all toes. Edema +1 and pedal pulses palpable. SKIN: small ischemic ulceration to lateral aspect of toe #5 right foot. NEUROLOGIC: Intact sensation to light touch S/p amputation of left foot toe #3. Suture line intact. No sign of dehiscence. Expected mild edema. No erythema. No edema. No drainage, warmth or odor. Mild pain with palpation. No calf pain with manual compression No documented fevers - Lab Result Diagrams: 05/20/16 03:51 05/20/16 03:51 Labs: Abnormal lab results ESR 45 mm/hr (0-15) H 05/18/16 03:20 Creatinine 1.14 mg/dL (0.57-1.11) H 05/20/16 03:51 Est GFR (Non-Af Amer) 58 (> 60) L 05/20/16 03:51 Glucose 115 mg/dL (70-99) H 05/20/16 03:51 ALT 57 Units/L (0-55) H 05/17/16 03:31 C-Reactive Protein 30 mg/L (Less than 5) H 05/17/16 17:02 Albumin 3.3 g/dL (3.5-5.0) L 05/17/16 03:31 Globulin 3.9 g/dL (2.4-3.5) H 05/17/16 03:31 Albumin/Globulin Ratio 0.8 (1.1-2.2) L 05/17/16 03:31 Vancomycin Trough 5.9 mcg/mL (10-20) L 05/18/16 07:42 Urine Opiates Screen Positive ng/mL (Ikotmq=[id number]) H 05/18/16 16:24 Consult Discharge Plan - Plan Referrals: Tessa Bee CNP [Partnered Physician] - 06/06/16 3:00 pm
[2016-05-22] MEDS: Cefepime HCl 2,000 MG in D5% in Water (Mini-Bag+) 100 ML IVPB SCH (16:58)
--- NOTE | 2016-05-22 19:49 | Internal Med Progress Note ---
Date of Encounter: 05/22/16 Time of Encounter: 12:00 - Assessment and plan (1) Cellulitis Current Visit: Yes Status: Acute Assessment and plan: Patient was initially admitted for cellulitis of her left fourth toe. Since that time patient has had surgery to have a toe removed. Qualifiers: Site of cellulitis: extremity Site of cellulitis of extremity: toe Laterality: left Qualified Code(s): L03.032 - Cellulitis of left toe (2) Osteomyelitis Current Visit: Yes Status: Acute Assessment and plan: Patient has been followed by podiatry and by infectious disease. She had her dressing changed today. And per podiatry no site is free of clinical signs of infection. The site was cleaned with Betadine and dressed and he may stay in place until her appointment she will need to be seen in the podiatry clinic in 1 week. She does have a boot on at this time. She will continue her IV antibiotics inpatient. And she will need to be placed somewhere for 2-3 weeks for IV antibiotics. Patient is homeless and lives in a tent in the [facility] so is unable to be done at home. Continue IV antibiotics Monitor labs Patient condition Monitor vital signs Placement pending Qualifiers: Osteomyelitis type: unspecified type Osteomyelitis location: foot Laterality: left Qualified Code(s): M86.9 - Osteomyelitis, unspecified (3) Raynauds disease Current Visit: Yes Status: Chronic Assessment and plan: Chronic. Qualifiers: Raynaud?s-associated gangrene presence: with gangrene Qualified Code(s): I73.01 - Raynaud's syndrome with gangrene (4) Hypertension Current Visit: No Status: Chronic Assessment and plan: Chronic. Continue medications. We will continue to monitor vital signs. Patient has been normotensive today. Qualifiers: Hypertension type: essential hypertension Qualified Code(s): I10 - Essential (primary) hypertension (5) Tobacco abuse counseling Current Visit: No Status: Chronic Assessment and plan: Patient was counseled by podiatry today regarding smoking. Patient has been made aware that ulcerations will continue on her feet as long as she continued to smoke. We will again discuss cessation prior to discharge. - Subjective Interval history: Patient states that she is very upset with having to be here. She states that she [facility] to [facility]. I did discuss with her that we will be starting her antibiotics today and that she will need to be monitored for at least a day and that public health social worker is working on prior authorization for her to go to the [facility] for IV antibiotics. Patient is homeless and does live in a tent with her boyfriend. She states that she misses her boyfriend and her dog and wishes that she was at the [facility] so they could come visit. Patient does not complain about pain while I am in the room. Dressing has been changed recently and there is no blood or drainage on the dressing. Per podiatry note there are no signs of infection. At around 6 PM patient tells nurse that she is now home from her waist up on her left side. I did clean into the seat the patient she is alert and oriented and tearful. She states that she cannot feel anything however even with eyes closed she is able to discern light touch on her left upper arm and forearm. Her strengths are equal and strong bilaterally upper and lower extremities. She has good pulses in all of her extremities. We will continue to monitor. - Constitutional Vitals: Temp Pulse Resp BP Pulse Ox 98.1 F 70 15 145/70 96 05/22/16 19:40 05/22/16 19:40 05/22/16 19:40 05/22/16 19:40 05/22/16 19:40 General appearance: Present: disheveled, A&O X 3, pleasant - Head Head exam: Present: normal inspection - Eye Eye exam: Present: normal appearance, conjuntiva pink - ENT ENT exam: Present: mucous membranes moist, normal exam, normal external ear exam - Neck Neck exam general surgery: Present: normal inspection. Absent: lymphadenopathy , tenderness - Respiratory Respiratory exam: Present: CTAB. Absent: chest wall tenderness, decreased breath sounds, respiratory distress, rhonchi, stridor, wheezes, tachypnea - Cardiovascular Cardiovascular exam: Present: RRR, +S1, +S2. Absent: diastolic murmur, systolic murmur - GI/Abdominal GI/Abdominal exam: Present: normal bowel sounds, soft. Absent: hernia, hepatomegaly, tenderness - Extremities Exam Extremities exam: Present: full ROM, normal capillary refill, normal inspection , warm, radial pulses palpable and symetrical. Absent: calf tenderness, pedal edema, tenderness - Neurological Exam Neurological exam: Present: alert, oriented X3, strengths equal and symetr throughout. Absent: motor sensory deficit, no focal deficits, pronater drift, facial droop, speech deficit - Expanded Neurological Exam Neurological exam expanded: Absent: expressive aphasia Patient oriented to: Present: person, place, time Speech: Absent: anomia, receptive aphasia Upper motor neuron: sensory extinction: Normal Sensory exam: LE 2 point discrimination: Normal, lower extremity light touch: Normal, UE 2 point discrimination: Normal, upper extremity light touch: Normal Neuro motor strength exam: LUE: 5, RUE: 5, LLE: 5, RLE: 5 Coma Scale Eye Opening: Spontaneous Coma Scale Motor Response: Obeys Commands Coma Scale Verbal Response: Oriented Coma Scale Total: 15 Internal Medicine: Result - Labs CBC & Chem 7: 05/20/16 03:51 05/20/16 03:51 - ABG Interpretation ABG results: PT/INR, D-dimer PT 12.1 Seconds (9.4-12.1) 05/17/16 03:31 Consult Discharge Plan - Plan Referrals: Tessa Bee CNP [Partnered Physician] - 06/06/16 3:00 pm
[2016-05-23] MEDS: Cefepime HCl 2,000 MG in D5% in Water (Mini-Bag+) 100 ML IVPB SCH (04:55)
[2016-05-23] MEDS: *HR* Heparin 5,000 UNIT/ML VIAL SQ SCH ×2 (04:55→13:54)
[2016-05-23] MEDS: *HR* HYDROcodone/Acet 5/325 mg TABLET PO PRN (04:56)
[2016-05-23 05:29] LABS: Basophils % 0.3 %; Eosinophils # 0.3 K/mcL (0.0-0.6); Eosinophils % 3.4 %; Hematocrit 36.7 % (35.3-44.9); Hemoglobin 12.1 g/dL (11.5-15.4); Immature Granulocytes % 0.8 % (0-4); Lymphocytes # 0.9 K/mcL (0.6-4.6); Mean Corpuscular Hemoglobin 28.9 pg (28.0-33.3); Mean Corpuscular Volume 87.8 fL (83.0-100.0); Mean Platelet Volume 11.4 fL (9.4-12.4); Monocytes # 0.7 K/mcL (0.0-1.3); Monocytes % 8.4 %; Neutrophils # 6.1 K/mcL (1.6-8.9); Platelet Count 175 K/mcL (140-400); Red Blood Count 4.18 M/mcL (3.82-4.97); Red Cell Distribution Width 13.4 % (11.5-14.5); Segmented Neutrophils % 76.1 %
[2016-05-23] MEDS ORDERED: Fluconazole 100 MG TABLET PO ONE ×2 (05:38→16:24)
[2016-05-23 05:43] LABS: BUN/Creatinine Ratio 19 (6-26); Blood Urea Nitrogen 17 mg/dL (7-20); Calcium 8.7 mg/dL (8.6-10.8); Carbon Dioxide 29 mEq/L (19-29); Chloride 104 mEq/L (98-109); Glucose 94 mg/dL (70-99); Osmolality,Calculated 285 (280-300); Potassium 3.8 mEq/L (3.5-4.5); Sodium 137 mEq/L (136-145); eGFR For African Americans > 60 (> 60); eGFR For Non-African Americans > 60 (> 60)
[2016-05-23] MEDS: metroNIDAZOLE 500 MG TABLET PO SCH ×2 (08:37→13:54)
[2016-05-23] MEDS: amLODIPine 5 MG TABLET PO SCH (08:37)
--- NOTE | 2016-05-23 11:02 | Infectious Disease Progress No ---
Date of Encounter: 05/23/16 Time of Encounter: 11:00 - Assessment and Plan (1) Osteomyelitis Current Visit: Yes Status: Acute Location: Left foot third toe. Causative organism unclear. No cultures obtained. Intra-operative pathology pending. ESR elevated at 40. CRP 30. X-ray of the left foot showed findings consistent with cellulitis with possible abscess and OM of the third distal phalanx. The patient has no SIRS criteria. Podiatry consulted. Status post amputation of toe #3 on the left foot at MTP joint. Operative report reviewed. No evidence of metatarsal involvement. Pathology pending. No cultures were obtained. Blood cultures drawn 05/17/16 are negative x 2 sets. Continue Vancomycin IV. Pharmacy to dose. Goal trough approximately 15 Continue Cefepime 2 grams IV Q12H. Duration of treatment depends on the clinical picture, but the patient will likely require at least a few weeks of IV antibiotics given the patient's history of Raynaud's Syndrome I am concerned that we will not be able to reach adequate serum concentrations of antibiotics in the distal portion of the foot with oral antibiotics. Additionally, the patient has poor living conditions and is at high risk for re-infection without dressing changes and timely antibiotic administration. The patient reports that she is homeless and lives in a tent in the [facility] with her boyfriend. public services assistant consulted and is following. Working on getting patient placed. Monitor renal function and for drug toxicity and dose-adjust antibiotics. Will need weekly CBC, BMP, ESR, CRP for duration of antibiotic treatment. Will add Vanc trough if indicated. Will need weekly PICC care per protocol. Will need to follow up with ID 06/06/16 at 0930. PICC placed 05/21/16. Qualifiers: Osteomyelitis type: unspecified type Osteomyelitis location: foot Laterality: left Qualified Code(s): M86.9 - Osteomyelitis, unspecified (2) Cellulitis Current Visit: Yes Status: Acute Causative organism unclear. Location: Left foot, third toe. Antibiotic recommendations as above. Qualifiers: Site of cellulitis: extremity Site of cellulitis of extremity: toe Laterality: left Qualified Code(s): L03.032 - Cellulitis of left toe (3) Hypokalemia Current Visit: Yes Status: Resolved (4) Mitral regurgitation Current Visit: No Status: Chronic Cardiology consulted. Recommendations reviewed. Cleared for surgery. Qualifiers: Cardiac valve disease etiology: etiology unspecified Qualified Code(s): I34.0 - Nonrheumatic mitral (valve) insufficiency (5) Raynauds disease Current Visit: Yes Status: Chronic Qualifiers: Raynaud?s-associated gangrene presence: with gangrene Qualified Code(s): I73.01 - Raynaud's syndrome with gangrene (6) Thyroid disease Current Visit: Yes Status: Chronic (7) Hypertension Current Visit: No Status: Chronic Qualifiers: Hypertension type: essential hypertension Qualified Code(s): I10 - Essential (primary) hypertension - Subjective Interval history: Patient seen and examined. No acute events noted overnight. Patient lying in bed during exam. She complains of pain to the left foot, improved. complains of umbilical abdominal pain this morning. She denies any fevers or chills or rigors. She chest pain, shortness of breath, or cough. She denies nausea or vomiting. She states the abdominal pain did not get better or worse with food. She denies constipation, but does report some loose stool this morning. She denies appetite changes. She denies any urinary complaints. Denies oral thrush or any skin lesions. Infect Dis PN-Objective Data - Labs CBC & Chem 7: 05/23/16 05:06 05/23/16 05:06 Labs: Laboratory Results - last 24 hr 05/22/16 05/23/16 05/23/16 12:30 05:06 05:06 WBC 8.0 RBC 4.18 Hgb 12.1 Hct 36.7 MCV 87.8 MCH 28.9 MCHC 33.0 RDW 13.4 Plt Count 175 MPV 11.4 Immature Gran % 0.8 Seg Neutrophils % 76.1 Lymphocytes % 11.0 Monocytes % 8.4 Eosinophils % 3.4 Basophils % 0.3 Neutrophils # 6.1 Lymphocytes # 0.9 Monocytes # 0.7 Eosinophils # 0.3 Basophils # 0.0 Sodium 137 Potassium 3.8 Chloride 104 Carbon Dioxide 29 BUN 17 Creatinine 0.91 Est GFR ( Amer) > 60 Est GFR (Non-Af Amer) > 60 BUN/Creatinine Ratio 19 Glucose 94 Calculated Osmolality 285 Calcium 8.7 Random Vancomycin < 0.4 Cultures: Cultures 05/17/16 17:02 Blood Culture - Final Peripheral Venipuncture No growth. 05/17/16 17:02 Blood Culture - Final Peripheral Venipuncture No growth. Serology 05/18/16 Range/Units 16:24 Urine Test Negative (Negative) Exam - Constitutional Vitals: Temp Pulse Resp BP Pulse Ox 98.0 F 96 16 106/68 93 L 05/23/16 07:25 05/23/16 07:25 05/23/16 07:25 05/23/16 07:25 05/23/16 07:25 General appearance: cooperative, no acute distress, obese - Head Head exam: Present: atraumatic, normal inspection, normocephalic - Eye Eye exam: Present: EOMI, normal appearance, PERRL Pupils: Present: normal accommodation - ENT ENT exam: Present: mucous membranes moist - Neck Neck exam: Present: normal inspection - Respiratory Respiratory exam: Present: CTAB. Absent: rales, respiratory distress, rhonchi, wheezes - Cardiovascular Cardiovascular exam: Present: RRR, +S1, +S2 - GI/Abdominal GI/Abdominal exam: Present: distended (obese), normal bowel sounds, soft. Absent: tenderness - Extremities Exam Extremities exam: Present: pedal edema (Trace LLE), tenderness (left foot). Absent: joint swelling Additional comments: Left foot dressing C/D/I with walking boot noted. - Neurological Exam Neurological exam: Present: alert, oriented X3, no focal deficits - Psychiatric Psychiatric exam: Present: normal affect, normal mood - Skin Skin exam: Present: dry, intact, normal color, warm - Additional findings Additional findings: PICC line noted to the RUE with transparent dressing C/D/I. Consult Discharge Plan - Plan Referrals: Tessa Bee CNP [Partnered Physician] - 06/06/16 3:00 pm Billie Sawyer CNP [Advanced Practice Nurse] - 06/06/16 9:30 am
[2016-05-23] MEDS: *HR* Morphine 2 MG/ML SYRINGE IVP PRN (13:52)
[2016-05-23] MEDS ORDERED: Vancomycin 1,500 MG in D5% in Water 250 ML IVPB SCH (15:00)
[2016-05-23 15:05] VITALS: BP 153/94
--- NOTE | 2016-05-23 16:13 | Discharge Summary ---
Date of Encounter: 06/11/16 Time of Encounter: 16:07 - Discharge Diagnosis (1) Acute osteomyelitis of toe of left foot Priority: Primary Status: Acute (2) Cellulitis Priority: Primary Status: Acute Qualifiers: Site of cellulitis: extremity Site of cellulitis of extremity: toe Laterality: left Qualified Code(s): L03.032 - Cellulitis of left toe (3) Raynauds disease Priority: Secondary Status: Chronic Qualifiers: Raynaud?s-associated gangrene presence: with gangrene Qualified Code(s): I73.01 - Raynaud's syndrome with gangrene (4) Hypertension Priority: Secondary Status: Chronic Qualifiers: Hypertension type: essential hypertension Qualified Code(s): I10 - Essential (primary) hypertension (5) Tobacco abuse counseling Priority: Primary Status: Chronic (6) Non-compliance Priority: Primary Status: Acute - Discharge Medications Prescriptions: HYDROcodone/Acet 5/325 mg [[place] 5-325 mg] 1 tab PO Q4HR PRN #10 tablet PRN Reason: Moderate Pain (4-6) Alprazolam [Xanax 0.5 MG Tablet] 0.5 mg PO BID #7 tablet Amlodipine [Norvasc] 5 mg PO DAILY #30 tablet MetroNIDAZOLE [Flagyl] 500 mg PO TID #45 tablet Home Medications: Acetaminophen [Tylenol] 500 mg PO Q6HR PRN 05/16/16 [History] Alprazolam [Xanax 0.5 MG Tablet] 0.5 mg PO BID #7 tablet 05/23/16 [Rx] Amlodipine [Norvasc] 5 mg PO DAILY #30 tablet 05/23/16 [Rx] HYDROcodone/Acet 5/325 mg [[place] 5-325 mg] 1 tab PO Q4HR PRN #10 tablet [Rx] MetroNIDAZOLE [Flagyl] 500 mg PO TID #45 tablet 05/23/16 [Rx] Allergies/Adverse Reactions: Allergies Cyclobenzaprine [From Flexeril] Allergy (Verified 03/17/15 16:31) Numbness tramadol Allergy (Verified 03/17/15 16:31) Rash Possible muscle relaxer Adverse Reaction (Uncoded 12/14/14 15:06) Numbness Date of admission: 05/17/16 02:43 Primary care physician: PCP NO Consults: 05/17/16 10:04 Consult to Cardiology [CONS] Routine Comment: Consulting Provider: [facility] Reason for Consult: Patient with ulceration of left foot toe #3 secondary to Raynauds Hx of Aortic valve regurgitation Mitral valve regurgitation HTN, Raynaud disease, Vasculitis Needing surgical clearance Call Completed: Yes 05/21/16 12:23 Consult to Occupational Therapy [CONS] Routine Comment: Evaluate, develop and implement POC Consult to Physical Therapy [CONS] Routine Comment: Evaluate, develop and implement POC 05/21/16 13:49 Consult to Invasive Line Access Team [CONS] Routine Reason for Consult: Picc Line Insertion Line Type: PICC PICC line indications: longterm Med/Antibiotic Time Notified: 13:49 Call Completed: Yes Discharging clinician: Wilmer Leung - Patient Status Disposition: Transfer SNF Condition: Good Functional capacity at discharge: uses cane/walker Overall status at discharge: patient is progressing back to baseline - Discharge Instructions Instructions: Hydrocodone/Acetaminophen (By mouth), Alprazolam (By mouth), Metronidazole (By mouth), Amlodipine (By mouth), Osteomyelitis (DC) Follow Up With: Billie Sawyer CNP [Advanced Practice Nurse] - 06/06/16 9:30 am Chinmay Cox DPM [Partnered Physician] - 05/29/16 3:00 pm Tessa Bee CNP [Partnered Physician] - 06/06/16 3:00 pm - Diet and Activity Activity: increase activity as tolerated Diet: low fat, low cholesterol Interval History: Ms. De Leon is a 25 year old female with prior medical history of Raynaud's disease, thyroid disease, history of aortic much regurgitation, and prior toe infection presents to [facility] because of worsening of her left third digit toe infection. 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 She presents after a couple weeks of acute worsening with significant pain in her toe and foot. She reports pain is significant, 8/10 when sitting and 10/10 when walking. She reports she recently developed more systemic symptoms including fever, and nausea. She denies ever having vomited, diarrhea/constipation, chest pain, shortness of breath, changes in vision, headache. She describes swelling in the left foot, tenderness to palpation, and a blackened, scabbed third toe. There has been minimal discharge or drainage from the toe. She states that her boyfriend are currently homeless living attendant, although they do have a heater she has been cold recently which may be exacerbating her Raynaud's. Hospital course: patient was hospitalized. Care Clinician was consulted. Patient underwent surgical procedure and amputation of toe. Patient was started on antibiotics. Patient was seen by infectious disease team. Infectious disease team recommended prolonged course of antibiotics. Patient was discharged to snf facility as patient lives in a tent and does not have a way to give intravenous antibiotics for her. At the time of discharge, patient was stable in condition. PRESCRIPTIONS are given to the patient. Medications and there side effects discussed at length. At the time of discharge patient does not have any question, concerns, update or any recommendations. - Time Spent with Patient Total time spent providing and/or coordinating discharge services: - Constitutional Vitals: Temp Pulse Resp BP Pulse Ox 98.1 F 98 16 153/94 98 05/23/16 15:03 05/23/16 15:03 05/23/16 15:03 05/23/16 15:03 05/23/16 15:03 General appearance: Present: disheveled, A&O X 3, pleasant - Head Head exam: Present: atraumatic, normocephalic - Eye Eye exam: Present: PERRL, conjuntiva pink, sclera anicteric Pupils: Present: PERRL - Neck Neck exam general surgery: Present: supple, trachea midline. Absent: lymphadenopathy - Respiratory Respiratory exam: Present: CTAB. Absent: accessory muscle use, rales, rhonchi, wheezes - Cardiovascular Cardiovascular exam: Present: RRR, +S1, +S2. Absent: diastolic murmur, gallop, rubs, systolic murmur - GI/Abdominal GI/Abdominal exam: Present: normal bowel sounds, soft, no peritoneal signs. Absent: distended, tenderness - Extremities Exam Extremities exam: Present: warm, radial pulses palpable and symetrical. Absent : calf tenderness, cyanotic, pedal edema - Neurological Exam Neurological exam: Present: CN II-XII intact, oriented X3, no focal deficits. Absent: pronater drift, facial droop, speech deficit - Skin Skin exam: Present: dry, intact
--- NOTE | 2016-05-23 16:19 | Physician Discharge Referral ---
ExtendedCare Referral Info Transfer To: SNF - Diagnosis (1) Acute osteomyelitis of toe of left foot Priority: Primary Status: Acute (2) Cellulitis Priority: Primary Status: Acute (3) Raynauds disease Priority: Secondary Status: Chronic (4) Hypertension Priority: Secondary Status: Chronic (5) Tobacco abuse counseling Priority: Primary Status: Chronic (6) Non-compliance Priority: Primary Status: Acute Prognosis: Good Aware of Diagnosis: Patient Aware of Prognosis: Patient - Transfer Medications Prescriptions: HYDROcodone/Acet 5/325 mg [[place] 5-325 mg] 1 tab PO Q4HR PRN #10 tablet PRN Reason: Moderate Pain (4-6) Alprazolam [Xanax 0.5 MG Tablet] 0.5 mg PO BID #7 tablet Amlodipine [Norvasc] 5 mg PO DAILY #30 tablet MetroNIDAZOLE [Flagyl] 500 mg PO TID #45 tablet Home Medications: Acetaminophen [Tylenol] 500 mg PO Q6HR PRN 05/16/16 [History] Alprazolam [Xanax 0.5 MG Tablet] 0.5 mg PO BID #7 tablet 05/23/16 [Rx] Amlodipine [Norvasc] 5 mg PO DAILY #30 tablet 05/23/16 [Rx] HYDROcodone/Acet 5/325 mg [[place] 5-325 mg] 1 tab PO Q4HR PRN #10 tablet [Rx] MetroNIDAZOLE [Flagyl] 500 mg PO TID #45 tablet 05/23/16 [Rx] Allergies/Adverse Reactions: Allergies Cyclobenzaprine [From Flexeril] Allergy (Verified 03/17/15 16:31) Numbness tramadol Allergy (Verified 03/17/15 16:31) Rash Possible muscle relaxer Adverse Reaction (Uncoded 12/14/14 15:06) Numbness - Respiratory Orders Smoking Cessation: Smoking cessation has been advised. For more information, call the [place] Tobacco Quit Line at 9-745-WRTC-NOW. - Mobility Orders Chair, Ambulate - Rehabiliation Orders Rehab Potential: Good (she needs nursing evaluation.) Rehab Orders: Evaluation for Physical Therapy - Diet Orders Regular, No Concentrated Sweets CERTIFICATION: I certify that the transfer of the above named patient to an Extended Care Facility is necessary for the continuing treatment of the diagnosis listed. The above information is true and accurate reflection of patient's current condition. Confidential - Redisclosure prohibited without a patient's written consent.
[2016-05-23] MEDS ORDERED: Aminoglycoside Consult 1 EACH MC ONE (17:20)
== END 2016-05-23 17:21 | DRG 314 ==
LOC: 3BNU 13:37 → EMEROO 13:37 → 3BNU 18:38
PROVIDERS: ADMIT Internal Medicine; ATTEND Registered Nurse

== ENCOUNTER 2016-11-05 15:04 | Inpatient (IN) ==
[2016-11-05 16:36] LABS: Basophils % 0.5 %; Eosinophils # 0.4 K/mcL (0.0-0.6); Eosinophils % 5.1 %; Hemoglobin 13.6 g/dL (11.5-15.4); Immature Granulocytes % 0.3 % (0-4); Lymphocytes # 1.8 K/mcL (0.6-4.6); Lymphocytes % 22.6 %; Mean Corpuscular HGB Conc 33.2 g/dL (31.6-35.5); Mean Corpuscular Hemoglobin 28.4 pg (28.0-33.3); Mean Corpuscular Volume 85.6 fL (83.0-100.0); Mean Platelet Volume 10.4 fL (9.4-12.4); Monocytes # 0.6 K/mcL (0.0-1.3); Monocytes % 7.5 %; Neutrophils # 5.1 K/mcL (1.6-8.9); Platelet Count 211 K/mcL (140-400); Red Blood Count 4.79 M/mcL (3.82-4.97); Red Cell Distribution Width 14.1 % (11.5-14.5)
--- NOTE | 2016-11-05 16:43 | Emergency Department Note ---
START Narrative - START START: I examined this patient and my medical decision-making was reviewed with the SYSTEM CONSULTANT/PA/Advanced Practice Nurse/Resident Physician. I agree with the documented findings, disposition and treatment plan as described except to the extent set forth below. ED attending note: Patient seen with emergency medicine resident Dr. PULLIAM. We independently evaluated the patient. We independently had [id number] contact with the patient. Please see a copy of his note for details of the history and physical, evaluation, management and disposition of this emergency Department patient. Briefly: A 25-year-old female who is currently an IV drug user and raynauds disease patient had a prior surgical history recently of the left third toe where she had ostial and it was partially dictated. Patient has pain on the right foot with redness osteomyelitis is still a concern patient will get IV blood work and CT scan to look for osteomyelitis of the foot. Admission anticipated. Disposition pending
[2016-11-05 16:47] LABS: BUN/Creatinine Ratio 19 (6-26); Blood Urea Nitrogen 21 mg/dL (7-20); C-Reactive Protein 6 mg/L (Less than 5); Calcium 9.2 mg/dL (8.6-10.8); Carbon Dioxide 25 mEq/L (19-29); Chloride 101 mEq/L (98-109); Glucose 85 mg/dL (70-99); Osmolality,Calculated 284 (280-300); Potassium 3.7 mEq/L (3.5-4.5); Sodium 136 mEq/L (136-145); eGFR For African Americans > 60 (> 60); eGFR For Non-African Americans > 60 (> 60)
[2016-11-05] MEDS ORDERED: Vancomycin 1,000 MG in D5% in Water 250 ML IVPB ONE (17:04)
[2016-11-05] MEDS ORDERED: Piperacillin/Tazobactam 4.5 GM in D5% in Water (Mini-Bag+) 100 ML IVPB ONE (17:04)
[2016-11-05] MEDS ORDERED: 0.9 % Sodium Chloride 1,000 ML IVC ONE (17:05)
--- NOTE | 2016-11-05 17:16 | Emergency Department Note ---
Disposition Clinical Impression: Osteomyelitis, Cellulitis Disposition: Admitted As Inpatient Condition: Good Referrals: NONE,PCP [Primary Care Provider] - Forms: ED Satisfaction Letter Time of Disposition: 17:16 Extremity Problem HPI - General Chief complaint: ED Extremity Problem,Nontraumatic Stated complaint: Toe infected Time Seen by Provider: 11/05/16 16:19 Source: patient Mode of arrival: ambulatory Limitations: no limitations Nursing Notes Reviewed: Yes Vital Signs Reviewed: Yes - History of Present Illness HPI Narrative: Patient presenting to the ED with a one to two-week history of left second toe cellulitis. Patient has a history of a Raynaud's disease and a previous left third toe osteomyelitis and subsequent resection earlier this year. States she has had subjective fever, pain and swelling at that area. She missed her last appointment with Dr. Cox because she was in [facility]. States it is getting difficult for her walk and she actually feels worse than when she had osteo- last time. Pain Scale: 8 - Related Data Home Medications Medication Instructions Recorded Confirmed Acetaminophen [Tylenol] 500 mg PO Q6HR PRN 05/16/16 11/05/16 Paroxetine HCl [Paxil] 20 mg PO DAILY 11/05/16 11/05/16 Allergies Allergy/AdvReac Type Severity Reaction Status Date / Time Cyclobenzaprine Allergy Numbness Verified 03/17/15 16:31 [From Flexeril] tramadol Allergy Rash Verified 03/17/15 16:31 Possible muscle relaxer AdvReac Numbness Uncoded 12/14/14 15:06 All systems ED: reviewed and negative except as stated. Constitutional: Reports: fever Cardiovascular: Denies: chest pain Gastrointestinal: Denies: abdominal pain, vomiting Integumentary: Reports: as per HPI Past Medical History - Past Medical History Attestation: Yes The following information was validated with the patient. Source: patient Medical history: Reports: hypertension, thyroid disease, other Surgical history: Reports: no surgical history Psychiatric history: Reports: no psych history PENSION MANAGER history: Reports: no PENSION MANAGER history - Social History Smoking Status: Current every day smoker Smokeless Tobacco Status: No Alcohol use: Reports: none Drug use: Reports: IV Drug Use Physical Exam - General General appearance: alert, in no apparent distress - Head Head exam: atraumatic, normocephalic, normal inspection - Eye Eye exam: Present: normal appearance, PERRL, EOMI - Respiratory Respiratory exam: Present: normal lung sounds bilaterally - Cardiovascular Cardiovascular exam: Present: regular rate, normal rhythm, normal heart sounds - Abdominal Exam Abdominal exam: Present: soft, Non-Tender. Absent: tenderness, distention, guarding, rebound, rigidity - Extremities Exam Extremities exam: Present: other (Patient's left second toe is erythematous, warm, tender, normal range of motion, normal cap refill, no crepitus) - Neurological Exam Neurological exam: Present: alert, oriented X3 - Psychiatric Psychiatric exam: Present: anxious (Patient also is slightly agitated) - Skin Skin exam: Present: warm, dry. Absent: normal color (Erythema to the left second toe, not extending to the foot) Course Course Narrative: 25-year-old female with suspected left great toe. Ice to myelitis. Labs initial x-ray. We will CT his x-ray is normal. Likely admission, and disposition pending Vital Signs Temperature 98.6 F 11/05/16 15:26 Pulse Rate 106 11/05/16 15:26 Respiratory Rate 16 11/05/16 15:26 Blood Pressure 149/104 11/05/16 15:26 O2 Sat by Pulse Oximetry 96 11/05/16 15:26 Temperature 98.6 F 11/05/16 15:26 Pulse Rate 106 11/05/16 15:26 Respiratory Rate 16 11/05/16 15:26 Blood Pressure 149/104 11/05/16 15:26 O2 Sat by Pulse Oximetry 96 11/05/16 15:26 Oxygen Delivery Oxygen Delivery Room Air Extremity Problem, Nontraumati - Lab Data Result diagrams: 11/05/16 16:30 11/05/16 16:30 Lab Results 11/05/16 11/05/16 11/05/16 Range/Units 16:30 16:30 16:30 WBC 8.0 (4.3-11.1) K/mcL RBC 4.79 (3.82-4.97) M/mcL Hgb 13.6 (11.5-15.4) g/dL Hct 41.0 (35.3-44.9) % MCV 85.6 (83.0-100.0) fL MCH 28.4 (28.0-33.3) pg MCHC 33.2 (31.6-35.5) g/dL RDW 14.1 (11.5-14.5) % Plt Count 211 (140-400) K/mcL MPV 10.4 (9.4-12.4) fL Immature Gran % 0.3 (0-4) % Seg Neutrophils % 64.0 % Lymphocytes % 22.6 % Monocytes % 7.5 % Eosinophils % 5.1 % Basophils % 0.5 % Neutrophils # 5.1 (1.6-8.9) K/mcL Lymphocytes # 1.8 (0.6-4.6) K/mcL Monocytes # 0.6 (0.0-1.3) K/mcL Eosinophils # 0.4 (0.0-0.6) K/mcL Basophils # 0.0 (0.0-0.2) K/mcL ESR 22 H (0-15) mm/hr Sodium 136 (136-145) mEq/L Potassium 3.7 (3.5-4.5) mEq/L Chloride 101 (98-109) mEq/L Carbon Dioxide 25 (19-29) mEq/L BUN 21 H (7-20) mg/dL Creatinine 1.10 (0.57-1.11) mg/dL Est GFR ( Amer) > 60 (> 60) Est GFR (Non-Af Amer) > 60 (> 60) BUN/Creatinine Ratio 19 (6-26) Glucose 85 (70-99) mg/dL Calculated Osmolality 284 (280-300) Calcium 9.2 (8.6-10.8) mg/dL C-Reactive Protein 6 H (Less than 5) mg/L
[2016-11-05] MEDS ORDERED: Naloxone 0.4 MG/ML INJ IVP PRN (21:20)
--- NOTE | 2016-11-05 21:26 | Internal Med History&Physical ---
Date of Encounter: 11/05/16 Time of Encounter: 21:23 Assessment and Plan (1) Acute osteomyelitis of toe of left foot Current visit: No Status: Acute d/w Dr cox who will evaluate patient tomorrow a.m. No need for NPO overnight. IVF, IV pain control, IV vancomycin (2) Cellulitis Current visit: Yes Status: Acute IV vanco, IVF Qualifiers: Qualified Code(s): L03.818 - Cellulitis of other sites (3) Raynauds disease Current visit: No Status: Chronic monitor for now Qualifiers: Raynaud?s-associated gangrene presence: with gangrene Qualified Code(s): I73.01 - Raynaud's syndrome with gangrene Internal Medicine - H&P: HPI Chief complaint: Left foot pain History of present illness: Ms. De Leon is a 25 year old female who presents with left foot pain. Found cellulitis with osteo of 2nd left distal phalanx. She has a hx of Raynaud and previously underwent amputation of left 3rd toe april 2016 for infection. She is established with Dr Cox. She developed worsening 2-3 days hx of pain along the left 2nd toe associated with difficulty weight bearing. Rated 10/10 pain. Reviewed noted subjective fever 2 days ago XR/XR foot 3V LT IMPRESSION: Osteomyelitis of the left 2nd distal phalanx. Past Med Surg Social Fam HX - Past Medical History Medical history: hypertension, thyroid disease, other Psychiatric history: no psych history - Past Surgical History Surgical History: no surgical history - Social History Smoking Status: Current every day smoker Packs per day: 0.5 Smokeless Tobacco Status: No Alcohol use: none Drug use: none, IV Drug Use - Family History Mother Hx Family Endocrine Disorder: Yes Father Hx Family Neuromuscular Disorders: Yes (stroke) Internal Medicine - H&P: Meds Acetaminophen [Tylenol] 500 mg PO Q6HR PRN 05/16/16 [History] Paroxetine HCl [Paxil] 20 mg PO DAILY 11/05/16 [History] 3 Allergy/AdvReac Type Severity Reaction Status Date / Time Cyclobenzaprine Allergy Numbness Verified 03/17/15 16:31 [From Flexeril] tramadol Allergy Rash Verified 03/17/15 16:31 Possible muscle relaxer AdvReac Numbness Uncoded 12/14/14 15:06 All Systems PM: A 10-system review of systems was performed and is negative for pertinent findings except as documented above in the HPI. Review of systems: ROS 14 point review of systems reviewed as best as possible given presentation. Pertinent positive or negative as per HPI or otherwise reviewed as negative - Constitutional Vitals: Temp Pulse Resp BP Pulse Ox 97.9 F 86 17 144/109 100 11/05/16 19:15 11/05/16 19:15 11/05/16 19:15 11/05/16 19:15 11/05/16 19:15 Exam: General - AAO x 3 Psych - Appropriate affect/speech. No agitation Eyes - SHAD. Eye lids intact. No scleral icterus Heart - Sinus. RRR. S1 and S2 present. No added HS/murmurs appreciated. No elevated JVD appreciated. No calf swellings/erythema Lung - Adequate air entry b/l, No crackles/wheezes appreciated GI - Soft, non-tender. No hepatosplenomegaly/ascites. BS+ - No CVA/suprapubic tenderness or palpable bladder distension MSK - left second toe swelling with pain, mild surrounding erythema Internal Med - H&P Results - Labs CBC & Chem 7: 11/05/16 16:30 11/05/16 16:30
[2016-11-05] MEDS: 0.9 % Sodium Chloride 1,000 ML IVC SCH (21:58)
[2016-11-05] MEDS: *HR* Morphine 2 MG/ML SYRINGE IVP PRN (21:58)
[2016-11-06] MEDS: Vancomycin 1,250 MG in D5% in Water 250 ML IVPB SCH ×2 (05:09→17:32)
[2016-11-06] MEDS: *HR* Enoxaparin 40 MG/0.4 ML SYRINGE SQ SCH (05:09)
[2016-11-06] MEDS: *HR* Morphine 2 MG/ML SYRINGE IVP PRN ×3 (05:15→19:57)
[2016-11-06] MEDS ORDERED: Vancomycin 1,250 MG in D5% in Water 250 ML IVPB SCH (08:00)
--- NOTE | 2016-11-06 10:23 | Internal Med Progress Note ---
<DorothyducaliciaJimmy barraza - Last Filed: 11/06/16 15:21> Date of Encounter: 11/06/16 Time of Encounter: 10:10 - Assessment and plan (1) Acute osteomyelitis of toe of left foot Current Visit: No Status: Acute Assessment and plan: Wallpaper Installer (Dr. Cox) will evaluate patient today. Continue IVF, IV pain control, IV vanco. Currently on day 2 of antibiotics. (2) Cellulitis Current Visit: Yes Status: Acute Assessment and plan: On day 2 of antibiotics. Afebrile. Continue IV vancomycin. Qualifiers: Qualified Code(s): L03.818 - Cellulitis of other sites (3) Raynauds disease Current Visit: No Status: Chronic Assessment and plan: Continue to monitor. Qualifiers: Raynaud?s-associated gangrene presence: without gangrene Qualified Code(s) : I73.00 - Raynaud's syndrome without gangrene - Time Spent With Patient less than 15 minutes - Subjective Interval history: Patient is a 25 yo F with a PMH of osteomyelitis and raynaud's and a PSH of L 3rd toe amputation that presents for cellulitis of the 2nd toe of the L foot. Patient said that she had been experiencing pain in her 2nd L toe for the past 1 -2 weeks. She admited to fever, pain, and swelling. When presented to the ED, she was afebrile with a normal WBC count. X-ray of the L foot showed osteomyelitis of the L 2nd distal phalynx. She was subsequently started on zozsyn and vancomycin. When seen today, she says she still has pain in the 2nd L toe. She admits to some minor nausea, but denies any vomiting. She denies any shortness of breath, chest pain, abdominal pain, constipation, diarrhea, hematuria, or hematochezia. - Constitutional Vitals: Temp Pulse Resp BP Pulse Ox 97.8 F 93 20 158/110 95 11/06/16 07:23 11/06/16 07:23 11/06/16 07:23 11/06/16 07:23 11/06/16 07:23 General appearance: Present: A&O X 3, no acute distress, answers questions appropriately - Respiratory Respiratory exam: Present: CTAB. Absent: respiratory distress, rhonchi, wheezes , tachypnea - Cardiovascular Cardiovascular exam: Present: RRR, +S1, +S2. Absent: diastolic murmur, systolic murmur - GI/Abdominal GI/Abdominal exam: Present: normal bowel sounds, soft. Absent: guarding, rebound, tenderness - Extremities Exam Extremities exam: Present: warm. Absent: cyanotic, pedal edema Additional comments: 2nd toe of L foot shows dry wound with no signs of active bleeding, pus, or drainage. Erythema with swelling noted on 2nd L toe. Pain elicited with palpation of 2nd L toe. 3rd L toe amputated. Pedal pulses intact bilaterally. Internal Medicine: Result - Labs CBC & Chem 7: 11/06/16 10:20 11/06/16 10:20 Consult Discharge Plan - Plan Referrals: NONE,PCP [Primary Care Provider] - <Jero Fraire H - Last Filed: 11/06/16 15:40> Date of Encounter: 11/06/16 - Constitutional Vitals: Temp Pulse Resp BP Pulse Ox 97.9 F 69 17 157/109 97 11/06/16 11:00 11/06/16 11:00 11/06/16 11:00 11/06/16 11:00 11/06/16 11:00 Internal Medicine: Result - Labs CBC & Chem 7: 11/06/16 10:20 11/06/16 10:20 Labs: Short CBC 11/06/16 Range/Units 10:20 WBC 6.8 (4.3-11.1) K/mcL Hgb 12.5 (11.5-15.4) g/dL Hct 36.7 (35.3-44.9) % Plt Count 185 (140-400) K/mcL Neutrophils # 4.7 (1.6-8.9) K/mcL BMP 11/06/16 10:20 Sodium 135 L Potassium 3.9 Chloride 106 Carbon Dioxide 24 BUN 13 Creatinine 0.96 Glucose 91 Calcium 8.5 L Urine 11/06/16 Range/Units 15:00 Urine Color Yellow (Yellow) Urine Clarity Clear (Clear) Urine pH 6.5 (5.0-8.0) pH Units Ur Specific [place] 1.018 (1.010-1.025) Urine Protein Trace (Neg-Trace) mg/dL Urine Glucose (UA) Normal (Normal) mg/dL - Attending Attestation Accelerated hypertension, start amlodipine 5 mg daily as it is also listed under therapy for Raynaud's Consider nitroglycerin ointment 2-4 times a day as an outpatient Podiatry recommendations are appreciated to continue IV therapy with vancomycin or to consider amputation/biopsy I examined this patient and my medical decision-making was reviewed with the Resident Physician. I agree with the documented findings, disposition and treatment plan as described except to the extent set forth below.
[2016-11-06 10:44] LABS: Basophils % 0.3 %; Eosinophils # 0.4 K/mcL (0.0-0.6); Eosinophils % 5.3 %; Hematocrit 36.7 % (35.3-44.9); Hemoglobin 12.5 g/dL (11.5-15.4); Immature Granulocytes % 0.3 % (0-4); Lymphocytes # 1.3 K/mcL (0.6-4.6); Lymphocytes % 18.6 %; Mean Corpuscular HGB Conc 34.1 g/dL (31.6-35.5); Mean Corpuscular Volume 85.2 fL (83.0-100.0); Mean Platelet Volume 10.9 fL (9.4-12.4); Monocytes # 0.5 K/mcL (0.0-1.3); Neutrophils # 4.7 K/mcL (1.6-8.9); Platelet Count 185 K/mcL (140-400); Red Blood Count 4.31 M/mcL (3.82-4.97); Red Cell Distribution Width 14.1 % (11.5-14.5); Segmented Neutrophils % 68.5 %
[2016-11-06 10:51] LABS: BUN/Creatinine Ratio 14 (6-26); Blood Urea Nitrogen 13 mg/dL (7-20); Calcium 8.5 mg/dL (8.6-10.8); Carbon Dioxide 24 mEq/L (19-29); Chloride 106 mEq/L (98-109); Glucose 91 mg/dL (70-99); Magnesium 1.6 mg/dL (1.6-2.6); Osmolality,Calculated 280 (280-300); Potassium 3.9 mEq/L (3.5-4.5); Sodium 135 mEq/L (136-145); eGFR For African Americans > 60 (> 60); eGFR For Non-African Americans > 60 (> 60)
[2016-11-06] MEDS: 0.9 % Sodium Chloride 1,000 ML IVC SCH ×2 (11:20→23:10)
[2016-11-06] MEDS ORDERED: Ondansetron 4 MG/2 ML VIAL IVP PRN (11:50)
[2016-11-06 15:26] LABS: Bilirubin,Urine Negative (Negative); Blood,Urine Negative (Negative); Clarity,Urine Clear (Clear); Color,Urine Yellow (Yellow); Glucose,Urine (UA) Normal (Normal); Ketones,Urine Negative (Negative); Leukocyte Esterase,Urine Moderate (Negative); Nitrite,Urine Negative (Negative); PH,Urine 6.5 pH Units (5.0-8.0); Protein,Urine Trace mg/dL (Neg-Trace); Specific Gravity,Urine 1.018 (1.010-1.025)
[2016-11-06 15:28] LABS: Bacteria,Urine None Seen per hpf (None-Few); Hyaline Casts,Urine None Seen per lpf (None-Few); RBC,Urine 0-3 per hpf (0-3); Squamous Epithelial Cell,Urine Many per lpf (None-Few)
--- NOTE | 2016-11-06 16:53 | Podiatry Consult Note ---
Date of Encounter: 11/06/16 Time of Encounter: 12:00 Assessment and Plan (1) Osteomyelitis Status: Acute Assessment: Osteomyelitis of toe #2 left foot secondary to raynauds and tobacco abuse Plan: Admitting WBC 6.8 ESR 22 CRP 6- patient also appears to have possible UTI Patient currently being treated with Vancomycin and Zosyn Continue antibiotic treatment- monitor renal function Will plan for OR with on for amputation of distal phalanx of toe #2 left foot- xray images indicating osteomyelitis are listed below. Will add dose of 0.5mg dilaudid for breakthrough pain Patient will need SW on board for placement after surgery- she is homeless and will need monitoring and care post operatively Patient will be NPO after midnight on Saturday for OR on No need for dressing to ulceration at this time- ulcer is dry Foot X-Ray 11/05/16 15:30 IMPRESSION: Osteomyelitis of the left 2nd distal phalanx. D/ / Davonte Barboza MD / Davonte Barboza MD Interpreting Provider: Davonte Barboza MD Qualifiers: Osteomyelitis type: other acute Osteomyelitis location: foot Laterality: left Qualified Code(s): M86.172 - Other acute osteomyelitis, left ankle and foot (2) Raynauds disease Status: Chronic Qualifiers: Raynaud?s-associated gangrene presence: without gangrene Qualified Code(s) : I73.00 - Raynaud's syndrome without gangrene History of Present Illness HPI: Ms. De Leon is a 25 year old female who has been consulted to our services with complaints of a necrotic toe #2 of the left foot. Patient was last seen by podiatry in April in which she underwent an amputation of toe #3 left foot for osteomyelitis caused by her raynauds. Patient has hx of raynauds and continues to be an active smoker. Patient states the ulceration to toe #2 began about 1 month ago. Patient states pain has increased over this period of time. Patient states she felt fevered a day or so ago but otherwise has no symptoms other than pain. Patient states pain to toe is severe. 10/04. Patient denies any trauma to toe. Denies any drainage. Patient is homeless and has limited means for care and has hx of non compliance. Past Med Surg Social Fam HX - Past Medical History Medical history: hypertension, thyroid disease, other Psychiatric history: no psych history - Past Surgical History Surgical History: no surgical history - Social History Smoking Status: Current every day smoker Packs per day: 0.5 Smokeless Tobacco Status: No Alcohol use: none Drug use: none, IV Drug Use - Family History Mother Hx Family Endocrine Disorder: Yes Father Hx Family Neuromuscular Disorders: Yes (stroke) Medications and Allergies Acetaminophen [Tylenol] 500 mg PO Q6HR PRN 05/16/16 [History] Paroxetine HCl [Paxil] 20 mg PO DAILY 11/05/16 [History] Nitroglycerin [Nitro-Bid] 30 gm TD BID #1 oint...g. 11/12/16 [Rx] Vancomycin HCl in Dextrose 5 % [Vancomycin-D5w 1.25 Gram/250Ml] 1.25 gm IV Q12H #26 11/12/16 [Rx] amLODIPine [Norvasc] 5 mg PO DAILY #30 tab 11/12/16 [Rx] 3 Allergy/AdvReac Type Severity Reaction Status Date / Time Cyclobenzaprine Allergy Numbness Verified 03/17/15 16:31 [From Flexeril] tramadol Allergy Rash Verified 03/17/15 16:31 Possible muscle relaxer AdvReac Numbness Uncoded 12/14/14 15:06 All Systems Reviewed: A 10-system review of systems was performed and is negative for pertinent findings except as documented above in the HPI. Physical Exam - Constitutional Vitals: Temp Pulse Resp BP Pulse Ox 98.5 F 94 18 158/95 94 11/06/16 16:16 11/06/16 16:16 11/06/16 16:16 11/06/16 16:16 11/06/16 16:16 Exam: General Examination: CONSTITUTIONAL: Alert, oriented, in no acute distress, non-toxic. EXTREMITIES: CFT 3 seconds all toes. Edema +1 and pedal pulses palpable DP/PT. SKIN: There is a noted area of necrosis to distal/lateral aspect of toe # 2 left foot. Nail has avulsed. There is no drainage. No odor. No warmth or erythema to toe. There is severe tenderness with palpation. All other toes appear normal. toe #3 left has been amputated. NEUROLOGIC:Intact sensation to light touch Results - Labs Result Diagrams: 11/11/16 05:43 11/11/16 05:43 Labs: Abnormal lab results ESR 22 mm/hr (0-15) H 11/05/16 16:30 Sodium 135 mEq/L (136-145) L 11/06/16 10:20 Calcium 8.5 mg/dL (8.6-10.8) L 11/06/16 10:20 C-Reactive Protein 6 mg/L (Less than 5) H 11/05/16 16:30 Urine Urobilinogen 4.0 mg/dL (Normal) H 11/06/16 15:00 Ur Leukocyte Esterase Moderate (Negative) H 11/06/16 15:00 Urine Microscopic WBC 5-15 per hpf (0-3) H 11/06/16 15:00 Ur Squamous Epith Cells Many per lpf (None-Few) H 11/06/16 15:00 Ur Culture Indicated? YES (NO) A 11/06/16 15:00 H & H 11/06/16 Range/Units 10:20 Hgb 12.5 (11.5-15.4) g/dL Hct 36.7 (35.3-44.9) % All other labs normal. Consult Discharge Plan - Plan Instructions: Cellulitis (DC), Peripheral Vascular Disorders (DC) Additional Instructions: Keep dressing clean, dry, and intact. Take medications as prescribed. Monitor wound for signs and symptoms of infection. Wear ortho shoe with ambulation. Heel bearing when walking. Referrals: Phyllis Rogers CNP [Partnered Physician] - 11/22/16 10:00 am Prescriptions: amLODIPine [Norvasc] 5 mg PO DAILY #30 tab Nitroglycerin [Nitro-Bid] 30 gm TD BID #1 oint...g. Vancomycin HCl in Dextrose 5 % [Vancomycin-D5w 1.25 Gram/250Ml] 1.25 gm IV Q12H #26
[2016-11-06] MEDS ORDERED: *HR* HYDROmorphone (PF) 1 MG/ML SYRINGE IVP ONE (17:02)
[2016-11-06] MEDS: amLODIPine 5 MG TABLET PO SCH (17:33)
[2016-11-07] MEDS: Vancomycin 1,250 MG in D5% in Water 250 ML IVPB SCH ×2 (05:08→16:51)
[2016-11-07] MEDS: *HR* Enoxaparin 40 MG/0.4 ML SYRINGE SQ SCH (05:08)
[2016-11-07] MEDS: *HR* Morphine 2 MG/ML SYRINGE IVP PRN ×3 (06:25→19:45)
[2016-11-07 06:46] LABS: Basophils % 0.3 %; Eosinophils # 0.3 K/mcL (0.0-0.6); Eosinophils % 5.1 %; Hemoglobin 11.9 g/dL (11.5-15.4); Immature Granulocytes % 0.3 % (0-4); Lymphocytes # 1.5 K/mcL (0.6-4.6); Lymphocytes % 24.9 %; Mean Corpuscular HGB Conc 33.1 g/dL (31.6-35.5); Mean Corpuscular Hemoglobin 28.4 pg (28.0-33.3); Mean Corpuscular Volume 85.9 fL (83.0-100.0); Mean Platelet Volume 11.4 fL (9.4-12.4); Monocytes # 0.3 K/mcL (0.0-1.3); Monocytes % 5.8 %; Neutrophils # 3.7 K/mcL (1.6-8.9); Platelet Count 170 K/mcL (140-400); Red Blood Count 4.19 M/mcL (3.82-4.97); Red Cell Distribution Width 14.5 % (11.5-14.5); Segmented Neutrophils % 63.6 %
[2016-11-07 06:57] LABS: BUN/Creatinine Ratio 15 (6-26); Blood Urea Nitrogen 13 mg/dL (7-20); Calcium 8.6 mg/dL (8.6-10.8); Carbon Dioxide 24 mEq/L (19-29); Chloride 108 mEq/L (98-109); Glucose 113 mg/dL (70-99); Magnesium 1.7 mg/dL (1.6-2.6); Osmolality,Calculated 287 (280-300); Potassium 3.9 mEq/L (3.5-4.5); Sodium 138 mEq/L (136-145); eGFR For African Americans > 60 (> 60); eGFR For Non-African Americans > 60 (> 60)
[2016-11-07] MEDS: amLODIPine 5 MG TABLET PO SCH (09:55)
--- NOTE | 2016-11-07 10:10 | Internal Med Progress Note ---
<Jimmy Leo - Last Filed: 11/07/16 10:32> Date of Encounter: 11/07/16 Time of Encounter: 10:15 - Assessment and plan (1) Acute osteomyelitis of toe of left foot Current Visit: No Status: Acute Assessment and plan: Per manager intel, patient will undergoe amputation of distal phalanx of the toe # 2 left foot tomorrow. Plan for NPO after midnight tonight. Continue IVF, IV pain control. Currently on day 3 of antibiotics. (2) Cellulitis Current Visit: Yes Status: Acute Assessment and plan: On day 3 of antibiotics on vancomycin. Afebrile. Qualifiers: Qualified Code(s): L03.032 - Cellulitis of left toe (3) Raynauds disease Current Visit: No Status: Chronic Assessment and plan: Started on 5 mg amlodipine yesterday. Plan to prescribe nitroglycerin ointment upon discharge. Qualifiers: Raynaud?s-associated gangrene presence: without gangrene Qualified Code(s) : I73.00 - Raynaud's syndrome without gangrene - Subjective Interval history: Patient is a 25 yo F with a PMH of osteomyelitis and raynaud's and a PSH of L 3rd toe amputation that presents for cellulitis of the 2nd toe of the L foot. Patient said that she had been experiencing pain in her 2nd L toe for the past 1 -2 weeks. She admited to fever, pain, and swelling. When presented to the ED, she was afebrile with a normal WBC count. X-ray of the L foot showed osteomyelitis of the L 2nd distal phalynx. She was subsequently started on zozsyn and vancomycin. Currently only on vancomycin. When seen today, she says the pain in her second L toe has increased and says the redness has spread a little. She admits to some minor nausea and headaches, but denies any vomiting. She denies any shortness of breath, light-headedness, syncope, dizziness, chest pain, abdominal pain, constipation, diarrhea, hematuria, or hematochezia. - Constitutional Vitals: Temp Pulse Resp BP Pulse Ox 97.7 F 90 15 148/104 97 11/07/16 09:40 11/07/16 09:40 11/07/16 09:40 11/07/16 09:40 11/07/16 09:40 General appearance: Present: mild distress, A&O X 3, answers questions appropriately - Respiratory Respiratory exam: Present: CTAB. Absent: respiratory distress, rhonchi, wheezes , tachypnea - Cardiovascular Cardiovascular exam: Present: RRR, +S1, +S2. Absent: diastolic murmur, systolic murmur - GI/Abdominal GI/Abdominal exam: Present: normal bowel sounds, soft. Absent: guarding, rebound, tenderness - Extremities Exam Extremities exam: Present: warm. Absent: pedal edema Additional comments: Pedal pulses intact bilaterally. 2nd left toe shows erythema that has increased slightly. Wound looks dry with no active bleeding, pus, or drainage. 3rd left toe is amputated. Internal Medicine: Result - Labs CBC & Chem 7: 11/07/16 06:09 11/07/16 06:09 Labs: Short CBC 11/06/16 11/07/16 Range/Units 10:20 06:09 WBC 6.8 5.8 (4.3-11.1) K/mcL Hgb 12.5 11.9 (11.5-15.4) g/dL Hct 36.7 36.0 (35.3-44.9) % Plt Count 185 170 (140-400) K/mcL Neutrophils # 4.7 3.7 (1.6-8.9) K/mcL BMP 11/06/16 11/07/16 10:20 06:09 Sodium 135 L 138 Potassium 3.9 3.9 Chloride 106 108 Carbon Dioxide 24 24 BUN 13 13 Creatinine 0.96 0.86 Glucose 91 113 H Calcium 8.5 L 8.6 Urine 11/06/16 Range/Units 15:00 Urine Color Yellow (Yellow) Urine Clarity Clear (Clear) Urine pH 6.5 (5.0-8.0) pH Units Ur Specific [place] 1.018 (1.010-1.025) Urine Protein Trace (Neg-Trace) mg/dL Urine Glucose (UA) Normal (Normal) mg/dL Consult Discharge Plan - Plan Referrals: NONE,PCP [Primary Care Provider] - <Jero Fraire H - Last Filed: 11/07/16 10:57> Date of Encounter: 11/07/16 - Constitutional Vitals: Temp Pulse Resp BP Pulse Ox 97.7 F 90 15 148/104 97 11/07/16 09:40 11/07/16 09:40 11/07/16 09:40 11/07/16 09:40 11/07/16 09:40 Internal Medicine: Result - Labs CBC & Chem 7: 11/07/16 06:09 11/07/16 06:09 Labs: Short CBC 11/07/16 Range/Units 06:09 WBC 5.8 (4.3-11.1) K/mcL Hgb 11.9 (11.5-15.4) g/dL Hct 36.0 (35.3-44.9) % Plt Count 170 (140-400) K/mcL Neutrophils # 3.7 (1.6-8.9) K/mcL BMP 11/07/16 06:09 Sodium 138 Potassium 3.9 Chloride 108 Carbon Dioxide 24 BUN 13 Creatinine 0.86 Glucose 113 H Calcium 8.6 Urine 11/06/16 Range/Units 15:00 Urine Color Yellow (Yellow) Urine Clarity Clear (Clear) Urine pH 6.5 (5.0-8.0) pH Units Ur Specific [place] 1.018 (1.010-1.025) Urine Protein Trace (Neg-Trace) mg/dL Urine Glucose (UA) Normal (Normal) mg/dL - Attending Attestation Continue vancomycin IV Nothing by mouth midnight for surgical procedure in the morning I examined this patient and my medical decision-making was reviewed with the Resident Physician. I agree with the documented findings, disposition and treatment plan as described except to the extent set forth below.
[2016-11-07] MEDS: 0.9 % Sodium Chloride 1,000 ML IVC SCH (10:43)
[2016-11-07] MEDS ORDERED: *HR* HYDROmorphone (PF) 1 MG/ML SYRINGE IVP ONE (15:49)
--- NOTE | 2016-11-07 19:20 | Anesthesia Evaluation PreOp ---
Date of Encounter: 11/07/16 Time of Encounter: 21:27 - Past History Planned Operation: Partial #2 Right toe amputation Cardiac History: CHF (Severe mitral regurgitation, mild aortic regurgitation), Other (good functional capacity) Pulmonary History: Smoker CLERK SECRETARY History: Denies Any Significant HX Anesthesia History: No Prior Anesthetic Complications Alcohol Use: none Drug use: none, IV Drug Use Medications and Allergies Acetaminophen [Tylenol] 500 mg PO Q6HR PRN 05/16/16 [History] Paroxetine HCl [Paxil] 20 mg PO DAILY 11/05/16 [History] 3 Allergy/AdvReac Type Severity Reaction Status Date / Time Cyclobenzaprine Allergy Numbness Verified 03/17/15 16:31 [From Flexeril] tramadol Allergy Rash Verified 03/17/15 16:31 Possible muscle relaxer AdvReac Numbness Uncoded 12/14/14 15:06 - Meds/Allergy Pre-op Review Medications Reviewed: Yes Allergies Reviewed: Yes Beta Blockers on Current Med List: No Anesthesia Results - Labs 11/07/16 06:09 11/07/16 06:09 - Imaging EKG: report reviewed, image reviewed (SINUS RHYTHM WITH SINUS ARRHYTHMIA) Additional studies: TTE: Normal LV chamber size, wall thickness, and systolic function. LVEF 60%. Indeterminate diastolic function. Normal right ventricular structure and function. Moderately dilated left atrium. Mildly thickened aortic valve leaflets. Mild aortic regurgitation. Mildly thickened mitral valve leaflets with restricted motion of the posterior mitral valve leaflet. Moderate-severe mitral regurgitation. Unable to estimate RVSP due to lack of TR jet. Recommend PAULINO to further assess mitral valve structure and function. Abnormal results communicated to Dr. Lorenzo via ECW. PAULINO: Technically challenging study. Patient received adequate sedation but was arousable and uncooperative. Normal LV and RV structure and function. Trileaflet aortic valve with mild focal calcification of the LCC. There is mild to moderate eccentric AR directed towards the anterior mitral valve leaflet. Doppler could not be obtained. Normal mitral structure with moderate mitral regurgitation. No evidence for LA or CONNOR thrombus. Anesthesia Exam Last Vital Signs Temp 98.2 F 11/07/16 15:45 Pulse 94 11/07/16 15:45 Resp 16 11/07/16 15:45 BP 146/89 11/07/16 15:45 Pulse Ox 95 11/07/16 15:45 Weight: 87 kg - HEENT Pupil (Motor): Pupils equal Mallampati: II Teeth: Normal Oral Opening: Greater than 3 - CLERK SECRETARY LOC: Oriented CLERK SECRETARY Motor: Normal RUE, Normal LUE, Normal RLE, Normal LLE, Normal Face - Cardiac Rhythm: Regular Murmur: None - Pulmonary Breath Sounds: bilateral Clear Respiratory Effort: Symmetrical Anesthesia Assess/Plan ASA Score: 3 Modified Sridhar Scale for Level of Consciousness: Cooperative, oriented, and tranquil Anesthetic Plan: MAC Monitoring Plan: Standard Monitors Recovery Plan: PACU
[2016-11-08] MEDS: *HR* Morphine 2 MG/ML SYRINGE IVP PRN ×3 (04:47→21:34)
[2016-11-08] MEDS: Vancomycin 1,250 MG in D5% in Water 250 ML IVPB SCH ×3 (04:47→18:46)
[2016-11-08] MEDS: 0.9 % Sodium Chloride 1,000 ML IVC SCH (04:48)
[2016-11-08] MEDS: *HR* Enoxaparin 40 MG/0.4 ML SYRINGE SQ SCH (04:48)
[2016-11-08 05:05] LABS: Basophils % 0.4 %; Eosinophils # 0.4 K/mcL (0.0-0.6); Eosinophils % 4.4 %; Hematocrit 36.5 % (35.3-44.9); Hemoglobin 12.2 g/dL (11.5-15.4); Immature Granulocytes % 0.3 % (0-4); Immature Platelets 5.8 % (1.1-6.1); Lymphocytes # 1.6 K/mcL (0.6-4.6); Lymphocytes % 20.3 %; Mean Corpuscular HGB Conc 33.4 g/dL (31.6-35.5); Mean Corpuscular Hemoglobin 28.8 pg (28.0-33.3); Mean Corpuscular Volume 86.1 fL (83.0-100.0); Mean Platelet Volume 11.2 fL (9.4-12.4); Monocytes # 0.6 K/mcL (0.0-1.3); Monocytes % 7.1 %; Neutrophils # 5.4 K/mcL (1.6-8.9); Platelet Count 185 K/mcL (140-400); Red Blood Count 4.24 M/mcL (3.82-4.97); Red Cell Distribution Width 14.4 % (11.5-14.5); Segmented Neutrophils % 67.5 %
[2016-11-08 06:29] LABS: BUN/Creatinine Ratio 22 (6-26); Blood Urea Nitrogen 18 mg/dL (7-20); Calcium 8.7 mg/dL (8.6-10.8); Carbon Dioxide 23 mEq/L (19-29); Chloride 106 mEq/L (98-109); Glucose 93 mg/dL (70-99); Osmolality,Calculated 286 (280-300); Potassium 4.1 mEq/L (3.5-4.5); Sodium 137 mEq/L (136-145); eGFR For African Americans > 60 (> 60); eGFR For Non-African Americans > 60 (> 60)
[2016-11-08] MEDS ORDERED: Lidocaine -MPF 2% 2 ML VIAL ONE (07:11)
[2016-11-08] MEDS ORDERED: *HR* FentaNYL (PF) 100 MCG/2 ML VIAL ONE (07:11)
[2016-11-08] MEDS ORDERED: Ondansetron 4 MG/2 ML VIAL ONE ×2 (07:11→08:19)
[2016-11-08] MEDS ORDERED: *HR* Midazolam HCl 2 MG/2 ML VIAL ONE (07:11)
[2016-11-08] MEDS ORDERED: Propofol 500 MG/50 ML INFUS..BTL ONE (07:11)
[2016-11-08] MEDS ORDERED: Bupivacaine/Clonidine Syringe 1 EACH SYRINGE ONE (07:29)
[2016-11-08] MEDS ORDERED: *HR* Propofol 200 MG/20 ML VIAL IVP ONE (07:54)
[2016-11-08] MEDS ORDERED: Dexamethasone 4 MG/ML VIAL ONE (08:19)
[2016-11-08] MEDS ORDERED: Ketorolac 30 MG/ML VIAL ONE (08:20)
--- NOTE | 2016-11-08 08:29 | Orthopedic Operative Note ---
Date of procedure: 11/08/16 Pre-op diagnosis: Osteomyelitis toe #2 left Post-op diagnosis: same Procedure: 11/08/16 08:27 #1 amputation distal interphalangeal joint #2 toe left foot Implants: None Complications: None Anesthesia: MAC, local Local Anesthetics: 0.25% Sensorcaine HCL SubQ (cc) Surgeon: Chinmay Cox Estimated blood loss (cc): 5 Tourniquet Time (Minutes): 0 Specimen: Distal toe #2 left foot Condition: stable Disposition: PACU Procedure in Detail: 11/08/16 08:30 Details in summary of procedure: Patient brought to the surgical suite. A sign in procedure was performed. Patient was then transferred to the surgical table and positioned properly safely securely. Patient was then prepped with alcohol 3 times over the dorsal aspect of the anterior left ankle. Patient was sedated. Attempts to create a block effectively were met with resistance with movement per patient. Patient was then converted to general anesthesia per LMA. Left foot was then prepped and draped in usual sterile manner. No tourniquet was used. Timeout was performed. Necrotic area on the distal dorsal aspect the second toe left foot was noted. 2 semielliptical incisions were placed beginning in the medial aspect of the second toe and drawn distally and just proximally at the junction of the plantar distal skin distally and then circumferentially around the lateral aspect of the toe. The dorsal incision that was planned with a skin scribe was drawn at the level of the DIPJ and brought distally just proximal to the nail fold and then transversely and then meeting the lateral plantar incision on the lateral aspect of the junction of the lateral plantar skin. Satisfied we had profound anesthesia incisions were made directly down to bone. Full-thickness incisions were made with a #15 scalpel blade. On the lateral distal aspect of the incision a scant amount of seropurulent drainage was noted immediately cultured aerobically and anaerobic. After completion the incisions a fresh #15 scalpel blade was then used to create dissection on the plantar aspect of the distal phalangeal joint proximally to the plantar aspect of the DIPJ and the plantar ligaments in the distal flexor tendon was divided cleanly. The dorsal ligamentous structures were then addressed and divided cleanly from lateral to medial. The toe was then disarticulated at the level of distal interphalangeal joint and sent for specimen. No remaining areas of the soft tissue were noted to compromise. Tissue was viable skin edges were bleeding without necessitating use of Bovie ligature. There is no clinical evidence of infection of the soft tissue at that juncture. The wound was then flushed with copious amounts of sterile saline. Satisfied with a clean surgical wound it was then closed with interrupted sutures of 4-0 Prolene loosely. Was dressed with Adaptic 4 x 4's and Kerlix a mild compressive dressing patient was then extubated and sent to PACU in good condition with vital signs stable.
[2016-11-08] MEDS ORDERED: Ringers Solution, Lactated 1,000 ML ONE (08:53)
--- NOTE | 2016-11-08 09:04 | Anesthesia Evaluation Post Op ---
Date of Encounter: 11/08/16 Time of Encounter: 09:03 - Vital Signs Vital Signs: Selected Entries 11/08/16 08:30 11/08/16 08:50 Temperature 98.3 F Pulse Rate 75 Respiratory Rate 16 Blood Pressure 131/93 O2 Sat by Pulse Oximetry 94 - Lungs Lungs: Clear Ascult./Percussion - Airway Airway: Non-obstructed - Cardiovascular Regular Rate - Mental Status Mental Status: Alert & Oriented, Answers Appropriately - Pain Pain Scale: 0 Pain Scale used: Numeric (1 - 10) - Nausea Vomiting Nausea Vomiting: Not Present - Hydration Hydration: Ice chips, Has not voided - Discharge PostOp Status: Transfer Patient to floor
[2016-11-08] MEDS ORDERED: *HR* HYDROmorphone (PF) 1 MG/ML SYRINGE IVP ONE (10:30)
[2016-11-08] MEDS ORDERED: Ondansetron 4 MG/2 ML VIAL IVP PRN (10:30)
[2016-11-08] MEDS ORDERED: Naloxone 0.4 MG/ML INJ IVP PRN (10:30)
--- NOTE | 2016-11-08 11:08 | Internal Med Progress Note ---
<Jimmy Leo - Last Filed: 11/08/16 11:45> Date of Encounter: 11/08/16 Time of Encounter: 10:30 - Assessment and plan (1) Acute osteomyelitis of toe of left foot Current Visit: No Status: Acute Assessment and plan: Patient underwent amputation of the distal interphalangeal joint of the 2nd toe of the L foot. Continue IVF, IV pain control. Currently on day 4 of antibiotics. Wound culture was taken and pending results. Continue vancomycin. (2) Cellulitis Current Visit: Yes Status: Acute Assessment and plan: On day 4 of antibiotics on vancomycin. Afebrile. Qualifiers: Qualified Code(s): L03.032 - Cellulitis of left toe (3) Raynauds disease Current Visit: No Status: Chronic Assessment and plan: On 5 mg amlodipine. Plan to prescribe nitroglycerin ointment upon discharge. Qualifiers: Raynaud?s-associated gangrene presence: without gangrene Qualified Code(s) : I73.00 - Raynaud's syndrome without gangrene (4) DVT prophylaxis Current Visit: No Status: Acute Assessment and plan: On lovenox. (5) Hypertension Current Visit: No Status: Chronic Assessment and plan: BP systolic range from 127-158 and diastolic from 81-104. Currently at 114/71. Currently on amlodipine and pain control. Qualifiers: Hypertension type: essential hypertension Qualified Code(s): I10 - Essential (primary) hypertension - Subjective Interval history: Patient is a 25 yo F with a PMH of osteomyelitis and raynaud's and a PSH of L 3rd toe amputation that presents for cellulitis of the 2nd toe of the L foot. Patient said that she had been experiencing pain in her 2nd L toe for the past 1 -2 weeks. She admited to fever, pain, and swelling. When presented to the ED, she was afebrile with a normal WBC count. X-ray of the L foot showed osteomyelitis of the L 2nd distal phalynx. She was subsequently started on zozsyn and vancomycin. Currently only on vancomycin. Patient underwent amputation of the distal interphalangeal joint of the 2nd toe of the L foot. The affected tissue was removed and debrided. When seen today, patient says the pain in her L foot has decreased from a 9/10 to a 6/10 since yesterday. She denies any fever, chills, nausea, vomting, shortness of breath, light-headedness , syncope, dizziness, chest pain, abdominal pain, constipation, diarrhea, hematuria, or hematochezia. - Constitutional Vitals: Temp Pulse Resp BP Pulse Ox 97.8 F 85 18 129/89 100 11/08/16 10:35 11/08/16 10:35 11/08/16 10:35 11/08/16 10:35 11/08/16 10:35 General appearance: Present: A&O X 3, no acute distress, answers questions appropriately - Respiratory Respiratory exam: Present: CTAB. Absent: respiratory distress, rhonchi, wheezes , tachypnea - Cardiovascular Cardiovascular exam: Present: RRR, +S1, +S2. Absent: diastolic murmur, systolic murmur - GI/Abdominal GI/Abdominal exam: Present: normal bowel sounds, soft. Absent: guarding, rebound, tenderness - Extremities Exam Extremities exam: Present: radial pulses palpable and symmetrical. Absent: calf tenderness Additional comments: Pedal pulses intact bilaterally. L foot was bandaged. Internal Medicine: Result - Labs CBC & Chem 7: 11/08/16 04:34 11/08/16 04:34 Labs: Short CBC 11/08/16 Range/Units 04:34 WBC 8.0 (4.3-11.1) K/mcL Hgb 12.2 (11.5-15.4) g/dL Hct 36.5 (35.3-44.9) % Plt Count 185 (140-400) K/mcL Neutrophils # 5.4 (1.6-8.9) K/mcL BMP 11/08/16 04:34 Sodium 137 Potassium 4.1 Chloride 106 Carbon Dioxide 23 BUN 18 Creatinine 0.83 Glucose 93 Calcium 8.7 Laboratory Tests 11/08/16 04:34 Magnesium 2.0 - Impressions Impressions Foot X-Ray 11/08/16 08:22 IMPRESSION: 1. Partial amputations of the 2nd and 3rd digits. 2. No acute osseous abnormality otherwise identified. D/ / Frank Layne MD / Frank Layne MD Interpreting Provider: Frank Layne MD Consult Discharge Plan - Plan Referrals: NONE,PCP [Primary Care Provider] - <Jero Fraire - Last Filed: 11/08/16 15:10> Date of Encounter: 11/08/16 - Constitutional Vitals: Temp Pulse Resp BP Pulse Ox 98.5 F 88 14 114/71 94 11/08/16 11:15 11/08/16 12:33 11/08/16 12:33 11/08/16 11:15 11/08/16 12:33 Internal Medicine: Result - Labs CBC & Chem 7: 11/08/16 04:34 11/08/16 04:34 Labs: Short CBC 11/08/16 Range/Units 04:34 WBC 8.0 (4.3-11.1) K/mcL Hgb 12.2 (11.5-15.4) g/dL Hct 36.5 (35.3-44.9) % Plt Count 185 (140-400) K/mcL Neutrophils # 5.4 (1.6-8.9) K/mcL BMP 11/08/16 04:34 Sodium 137 Potassium 4.1 Chloride 106 Carbon Dioxide 23 BUN 18 Creatinine 0.83 Glucose 93 Calcium 8.7 - Impressions Impressions Foot X-Ray 11/08/16 08:22 IMPRESSION: 1. Partial amputations of the 2nd and 3rd digits. 2. No acute osseous abnormality otherwise identified. D/ / Frank Layne MD / Frank Layne MD Interpreting Provider: Frank Layne MD - Attending Attestation Continue vancomycin until culture is available I examined this patient and my medical decision-making was reviewed with the Resident Physician. I agree with the documented findings, disposition and treatment plan as described except to the extent set forth below.
[2016-11-09 04:47] LABS: Basophils % 0.3 %; Eosinophils # 0.1 K/mcL (0.0-0.6); Eosinophils % 0.5 %; Hematocrit 35.5 % (35.3-44.9); Hemoglobin 11.5 g/dL (11.5-15.4); Immature Granulocytes % 0.5 % (0-4); Lymphocytes # 1.2 K/mcL (0.6-4.6); Lymphocytes % 10.7 %; Mean Corpuscular HGB Conc 32.4 g/dL (31.6-35.5); Mean Corpuscular Hemoglobin 28.3 pg (28.0-33.3); Mean Corpuscular Volume 87.4 fL (83.0-100.0); Mean Platelet Volume 10.9 fL (9.4-12.4); Monocytes # 0.7 K/mcL (0.0-1.3); Platelet Count 202 K/mcL (140-400); Red Blood Count 4.06 M/mcL (3.82-4.97); Red Cell Distribution Width 14.4 % (11.5-14.5)
[2016-11-09 04:49] LABS: Neutrophils # 9.3 K/mcL (1.6-8.9)
[2016-11-09 05:01] LABS: BUN/Creatinine Ratio 23 (6-26); Blood Urea Nitrogen 22 mg/dL (7-20); Calcium 8.8 mg/dL (8.6-10.8); Carbon Dioxide 26 mEq/L (19-29); Chloride 107 mEq/L (98-109); Glucose 113 mg/dL (70-99); Magnesium 1.7 mg/dL (1.6-2.6); Osmolality,Calculated 292 (280-300); Potassium 4.3 mEq/L (3.5-4.5); Sodium 139 mEq/L (136-145); eGFR For African Americans > 60 (> 60); eGFR For Non-African Americans > 60 (> 60)
[2016-11-09] MEDS: Vancomycin 1,250 MG in D5% in Water 250 ML IVPB SCH ×2 (05:03→18:26)
[2016-11-09] MEDS: *HR* Enoxaparin 40 MG/0.4 ML SYRINGE SQ SCH (05:04)
[2016-11-09] MEDS: *HR* Morphine 2 MG/ML SYRINGE IVP PRN ×3 (07:36→23:35)
--- NOTE | 2016-11-09 08:30 | Internal Med Progress Note ---
<DorothyducaliciaJimmy barraza - Last Filed: 11/09/16 08:28> Date of Encounter: 11/09/16 Time of Encounter: 08:20 - Assessment and plan (1) Acute osteomyelitis of toe of left foot Current Visit: No Status: Acute Assessment and plan: Patient underwent amputation of the distal interphalangeal joint of the 2nd toe of the L foot yesterday. Her pain level has improved since yesterday. Her WBC count has risen from 8.0 to 11.3, which is most likely secondary to the recent surgery. Patient was tachycardic this morning (109), but not consistently. Currently afebrile. Continue IVF, IV pain control. Currently on day 5 of antibiotics. Wound culture results pending. Continue vancomycin. (2) Cellulitis Current Visit: Yes Status: Acute Assessment and plan: On day 5 of antibiotics on vancomycin. Afebrile. Qualifiers: Qualified Code(s): L03.032 - Cellulitis of left toe (3) Leukocytosis Current Visit: Yes Status: Acute Assessment and plan: WBC has increased from 8 to 11.3 since yesterday. Neutrophil count has increased from 5.4 to 9.3. Currently afebrile. Was tachycardic this morning, but not consistently. This is most likely secondary to the surgery she underwent yesterday. Will continue to monitor. Qualifiers: Qualified Code(s): D72.829 - Elevated white blood cell count, unspecified (4) Raynauds disease Current Visit: No Status: Chronic Assessment and plan: On 5 mg amlodipine. Plan to prescribe nitroglycerin ointment and amlodipine upon discharge. Qualifiers: Raynaud?s-associated gangrene presence: without gangrene Qualified Code(s) : I73.00 - Raynaud's syndrome without gangrene (5) Hypertension Current Visit: No Status: Chronic Assessment and plan: BP systolic range from 129-147 and diastolic from 70-108. Currently at 137/70. Currently on amlodipine and pain control. Qualifiers: Hypertension type: essential hypertension Qualified Code(s): I10 - Essential (primary) hypertension (6) DVT prophylaxis Current Visit: No Status: Acute Assessment and plan: On lovenox. - Subjective Interval history: Patient is a 25 yo F with a PMH of osteomyelitis and raynaud's and a PSH of L 3rd toe amputation that presents for cellulitis of the 2nd toe of the L foot. Patient said that she had been experiencing pain in her 2nd L toe for the past 1 -2 weeks. She admited to fever, pain, and swelling. When presented to the ED, she was afebrile with a normal WBC count. X-ray of the L foot showed osteomyelitis of the L 2nd distal phalynx. She was subsequently started on zozsyn and vancomycin. Currently only on vancomycin. Patient underwent amputation of the distal interphalangeal joint of the 2nd toe of the L foot yesterday. The affected tissue was removed and debrided. When seen today, patient says the pain in her L foot has decreased from a 6/10 to a 4/10 since yesterday. She denies any fever, chills, nausea, vomting, shortness of breath, light-headedness, syncope, dizziness, chest pain, abdominal pain, constipation, diarrhea, hematuria, or hematochezia. - Constitutional Vitals: Temp Pulse Resp BP Pulse Ox 97.6 F 109 18 137/70 94 11/09/16 03:42 11/09/16 03:42 11/09/16 03:42 11/09/16 03:42 11/09/16 03:42 General appearance: Present: A&O X 3, no acute distress, answers questions appropriately - Respiratory Respiratory exam: Present: CTAB. Absent: respiratory distress, rhonchi, stridor , wheezes, tachypnea - Cardiovascular Cardiovascular exam: Present: RRR, +S1, +S2. Absent: diastolic murmur, systolic murmur, tachycardia - GI/Abdominal GI/Abdominal exam: Present: normal bowel sounds, soft. Absent: distended, guarding, rebound, tenderness - Extremities Exam Extremities exam: Absent: pedal edema Additional comments: L foot bandaged. Pedal pulses intact bilaterally. Internal Medicine: Result - Labs CBC & Chem 7: 11/09/16 04:33 11/09/16 04:33 Labs: Short CBC 11/09/16 Range/Units 04:33 WBC 11.3 H (4.3-11.1) K/mcL Hgb 11.5 (11.5-15.4) g/dL Hct 35.5 (35.3-44.9) % Plt Count 202 (140-400) K/mcL Neutrophils # 9.3 H (1.6-8.9) K/mcL BMP 11/09/16 04:33 Sodium 139 Potassium 4.3 Chloride 107 Carbon Dioxide 26 BUN 22 H Creatinine 0.97 Glucose 113 H Calcium 8.8 Laboratory Tests 11/09/16 04:33 Magnesium 1.7 - Impressions Impressions Foot X-Ray 11/08/16 08:22 IMPRESSION: 1. Partial amputations of the 2nd and 3rd digits. 2. No acute osseous abnormality otherwise identified. D/ / Frank Layne MD / Frank Layne MD Interpreting Provider: Frank Layne MD - VTE Documentation of Mechanical Device: Intermittent pneumatic compression device Consult Discharge Plan - Plan Referrals: NONE,PCP [Primary Care Provider] - <Jero Fraire H - Last Filed: 11/09/16 16:21> Date of Encounter: 11/09/16 - Constitutional Vitals: Temp Pulse Resp BP Pulse Ox 98.5 F 93 14 133/81 96 11/09/16 16:04 11/09/16 16:04 11/09/16 16:04 11/09/16 16:04 11/09/16 16:04 Internal Medicine: Result - Labs CBC & Chem 7: 11/09/16 04:33 11/09/16 04:33 Labs: Short CBC 11/09/16 Range/Units 04:33 WBC 11.3 H (4.3-11.1) K/mcL Hgb 11.5 (11.5-15.4) g/dL Hct 35.5 (35.3-44.9) % Plt Count 202 (140-400) K/mcL Neutrophils # 9.3 H (1.6-8.9) K/mcL BMP 11/09/16 04:33 Sodium 139 Potassium 4.3 Chloride 107 Carbon Dioxide 26 BUN 22 H Creatinine 0.97 Glucose 113 H Calcium 8.8 - Attending Attestation Continue vancomycin until culture is available I examined this patient and my medical decision-making was reviewed with the Resident Physician. I agree with the documented findings, disposition and treatment plan as described except to the extent set forth below.
[2016-11-09] MEDS: amLODIPine 5 MG TABLET PO SCH (09:44)
[2016-11-09] MEDS: 0.9 % Sodium Chloride 1,000 ML IVC SCH ×2 (09:44→18:27)
--- NOTE | 2016-11-09 17:23 | Podiatry Progress Note ---
Date of Encounter: 11/06/16 Time of Encounter: 17:00 - Assessment and Plan (1) Osteomyelitis Status: Acute Assessment: Osteomyelitis of toe #2 left foot secondary to raynauds and tobacco abuse. 11/08 amputation of distal toe. Plan: Continue current antibiotic therapy- vancomycin- slight bump in WBC 11.2 is expected post op- will continue to monitor. Patient will need SW on board for placement after surgery- she is homeless and will need monitoring and care post operatively Will need post operative shoe for discharge and ambulation in room. Patient will be partial weight bearing to heel of foot only. Dressing changes daily - remove dressing, cleanse with saline, adaptic, 4x4 and kerlex- Will prescribe BID colace for stool softener. Foot X-Ray 11/05/16 15:30 IMPRESSION: Osteomyelitis of the left 2nd distal phalanx. D/ / Davonte Barboza MD / Davonte Barobza MD Interpreting Provider: Davonte Barboza MD Qualifiers: Osteomyelitis type: other acute Osteomyelitis location: foot Laterality: left Qualified Code(s): M86.172 - Other acute osteomyelitis, left ankle and foot (2) Raynauds disease Status: Chronic Qualifiers: Raynaud?s-associated gangrene presence: with gangrene Qualified Code(s): I73.01 - Raynaud's syndrome with gangrene Subjective Interval history: Patient is PO day #1 amputation distal interphalangeal joint #2 toe left foot per . Patient is resting comfortably on arrival. Dressing intact. Denies any pain at this time. States she is having some constipation and states she had a little bright red blood in her stool. Denies any calf pain or SOB. Denies fevers, chills, n/v or flu like symptoms Objective - Vital Signs Vital Signs: Vital Signs Temp Pulse Resp BP Pulse Ox 11/09/16 16:04 98.5 F 93 14 133/81 96 11/09/16 12:00 98.1 F 97 16 136/88 96 11/09/16 09:24 98.8 F 86 15 138/87 97 11/09/16 03:42 97.6 F 109 18 137/70 94 09/14/17 23:09 99.2 F 97 19 145/80 97 11/08/16 19:14 98.8 F 94 17 133/90 99 Intake and Output 11/09/16 11/09/16 11/09/16 07:59 15:59 23:59 Intake Total 240 / 240 Balance 240 / 240 Intake: Oral 240 / 240 Other: Meal Breakfast Percent of Meal Consumed 100% - Exam Exam: General Examination: CONSTITUTIONAL: Alert, oriented, in no acute distress, non-toxic. EXTREMITIES: CFT 3 seconds all toes. Edema +1 and pedal pulses palpable. SKIN: Skin with decreased turgor, decreased subcutaneous tissue, skin thin and shiny with trophic changes associated with comorbidities as described in history.. NEUROLOGIC: Intact sensation to BLE S/p #1 amputation distal interphalangeal joint #2 toe left foot. Dressing removed, appears to be healing without issue. Suture line intact. No signs of dehiscence. Very mild erythema, and edema noted this is expected postoperatively. There is no maceration. No signs of infection. No active bleeding or drainage. - Lab Result Diagrams: 11/11/16 05:43 11/11/16 05:43 Labs: Abnormal lab results WBC 11.3 K/mcL (4.3-11.1) H 11/09/16 04:33 Neutrophils # 9.3 K/mcL (1.6-8.9) H 11/09/16 04:33 ESR 22 mm/hr (0-15) H 11/05/16 16:30 BUN 22 mg/dL (7-20) H 11/09/16 04:33 Glucose 113 mg/dL (70-99) H 11/09/16 04:33 C-Reactive Protein 6 mg/L (Less than 5) H 11/05/16 16:30 Urine Urobilinogen 4.0 mg/dL (Normal) H 11/06/16 15:00 Ur Leukocyte Esterase Moderate (Negative) H 11/06/16 15:00 Urine Microscopic WBC 5-15 per hpf (0-3) H 11/06/16 15:00 Ur Squamous Epith Cells Many per lpf (None-Few) H 11/06/16 15:00 Ur Culture Indicated? YES (NO) A 11/06/16 15:00 Microbiology, Last 48 Hours 11/08/16 15:37 Wound Culture - Preliminary Left Second Toe Staphylococcus aureus 11/06/16 15:00 Urine Culture - Final Urine,Clean Catch No growth. - VTE Documentation of Mechanical Device: Intermittent pneumatic compression device Consult Discharge Plan - Plan Instructions: Cellulitis (DC), Peripheral Vascular Disorders (DC) Additional Instructions: Keep dressing clean, dry, and intact. Take medications as prescribed. Monitor wound for signs and symptoms of infection. Wear ortho shoe with ambulation. Heel bearing when walking. Referrals: Phyllis Rogers CNP [Partnered Physician] - 11/22/16 10:00 am Prescriptions: amLODIPine [Norvasc] 5 mg PO DAILY #30 tab Nitroglycerin [Nitro-Bid] 30 gm TD BID #1 oint...g. Vancomycin HCl in Dextrose 5 % [Vancomycin-D5w 1.25 Gram/250Ml] 1.25 gm IV Q12H #26
[2016-11-10 04:06] LABS: Basophils % 0.5 %; Eosinophils # 0.3 K/mcL (0.0-0.6); Eosinophils % 3.2 %; Hematocrit 36.3 % (35.3-44.9); Hemoglobin 11.9 g/dL (11.5-15.4); Immature Granulocytes % 1.3 % (0-4); Lymphocytes # 1.9 K/mcL (0.6-4.6); Lymphocytes % 22.8 %; Mean Corpuscular HGB Conc 32.8 g/dL (31.6-35.5); Mean Corpuscular Hemoglobin 28.9 pg (28.0-33.3); Mean Corpuscular Volume 88.1 fL (83.0-100.0); Mean Platelet Volume 10.8 fL (9.4-12.4); Monocytes # 0.7 K/mcL (0.0-1.3); Monocytes % 8.4 %; Neutrophils # 5.3 K/mcL (1.6-8.9); Platelet Count 222 K/mcL (140-400); Red Blood Count 4.12 M/mcL (3.82-4.97); Red Cell Distribution Width 14.6 % (11.5-14.5); Segmented Neutrophils % 63.8 %
[2016-11-10 04:18] LABS: BUN/Creatinine Ratio 23 (6-26); Blood Urea Nitrogen 22 mg/dL (7-20); Carbon Dioxide 22 mEq/L (19-29); Chloride 106 mEq/L (98-109); Glucose 93 mg/dL (70-99); Magnesium 1.5 mg/dL (1.6-2.6); Osmolality,Calculated 285 (280-300); Potassium 4.1 mEq/L (3.5-4.5); Sodium 136 mEq/L (136-145); eGFR For African Americans > 60 (> 60); eGFR For Non-African Americans > 60 (> 60)
[2016-11-10] MEDS: *HR* Enoxaparin 40 MG/0.4 ML SYRINGE SQ SCH (05:13)
[2016-11-10] MEDS: Vancomycin 1,250 MG in D5% in Water 250 ML IVPB SCH ×2 (05:13→16:44)
--- NOTE | 2016-11-10 09:11 | Podiatry Progress Note ---
Date of Encounter: 11/10/16 Time of Encounter: 09:08 - Assessment and Plan (1) Acute osteomyelitis of toe of left foot Current Visit: No Status: Acute Assessment: #1 postop day #2 without complication healing uneventfully sutures intact no dehiscence #2 cultures revealed MRSA sensitive to vancomycin Plan: #1 continue present antibiotic therapy #2 dressing changes as needed. Will order an [employer]edge [employer] healing shoe #3 patient will need postdischarge antibiotic therapy and wound care #4 consider extended-care facility placement Subjective Principal diagnosis: Status post distal amputation toe #2 left foot Interval history: Postop day #2 without complaints of chest pain nausea vomiting fever chills or significant pain of her operative site. Objective - Vital Signs Vital Signs: Vital Signs Temp Pulse Resp BP Pulse Ox 11/10/16 07:26 98.2 F 78 14 130/78 98 11/10/16 01:13 97.9 F 100 17 149/92 99 11/09/16 20:23 98.9 F 96 18 152/83 99 11/09/16 16:04 98.5 F 93 14 133/81 96 11/09/16 12:00 98.1 F 97 16 136/88 96 11/09/16 09:24 98.8 F 86 15 138/87 97 Intake and Output 11/09/16 11/10/16 11/10/16 23:59 07:59 15:59 Intake Total 1370 / 1370 2100 / 2100 240 / 240 Output Total 500 / 500 Balance 1370 / 1370 1600 / 1600 240 / 240 Intake: IV Fluids 1250 / 1250 0.9 % Sodium Chloride 1, 1000 / 1000 000 ML @ 100 mls/hr IVC . Q10H [facility] Rx#:[id number] Vancocin 1,250 MG In 250 / 250 Dextrose 5% 250 ML @ 166. 667 mls/hr IVPB Q12H [facility] Rx#:[id number] Oral 120 / 120 2100 / 2100 240 / 240 Output: Urine 500 / 500 Other: Meal Dinner Breakfast Percent of Meal Consumed 50% 100% # Voids 4 - Exam Exam: Sutures intact no evidence of dehiscence. No cellulitis and ascending lymphangitis. No purulence no drainage. Incision: Present: healing, red, inflamed, clean and dry - Lab Result Diagrams: 11/10/16 03:38 11/10/16 03:38 Labs: Abnormal lab results RDW 14.6 % (11.5-14.5) H 11/10/16 03:38 ESR 22 mm/hr (0-15) H 11/05/16 16:30 BUN 22 mg/dL (7-20) H 11/10/16 03:38 Magnesium 1.5 mg/dL (1.6-2.6) L 11/10/16 03:38 C-Reactive Protein 6 mg/L (Less than 5) H 11/05/16 16:30 Urine Urobilinogen 4.0 mg/dL (Normal) H 11/06/16 15:00 Ur Leukocyte Esterase Moderate (Negative) H 11/06/16 15:00 Urine Microscopic WBC 5-15 per hpf (0-3) H 11/06/16 15:00 Ur Squamous Epith Cells Many per lpf (None-Few) H 11/06/16 15:00 Ur Culture Indicated? YES (NO) A 11/06/16 15:00 Microbiology, Last 48 Hours 11/08/16 15:37 Wound Culture - Final Left Second Toe Methicillin Resistant S.aureus - VTE Documentation of Mechanical Device: Intermittent pneumatic compression device Consult Discharge Plan - Plan Referrals: NONE,PCP [Primary Care Provider] -
[2016-11-10] MEDS: amLODIPine 5 MG TABLET PO SCH (09:29)
[2016-11-10] MEDS: 0.9 % Sodium Chloride 1,000 ML IVC SCH ×4 (09:32→13:39)
[2016-11-10] MEDS: *HR* Morphine 2 MG/ML SYRINGE IVP PRN ×2 (09:42→20:24)
[2016-11-10] MEDS ORDERED: Magnesium Sulfate 2 GM in D5% in Water 100 ML IVPB ONE (12:48)
--- NOTE | 2016-11-10 12:51 | Internal Med Progress Note ---
<Juan Manuel Farah - Last Filed: 11/10/16 17:00> Date of Encounter: 11/10/16 Time of Encounter: 12:49 - Assessment and plan (1) Cellulitis Current Visit: Yes Status: Acute Assessment and plan: Cellulitis secondary to osteomyelitis of left foot. - Wound culture is growing MRSA - Patient is afebrile, normotensive, oxygenating 98% on room air, WBC is normal - Day 6 of vancomycin and will likely need 21 days of IV antibiotics total - Improving Qualifiers: Qualified Code(s): L03.032 - Cellulitis of left toe (2) Osteomyelitis Current Visit: Yes Status: Acute Assessment and plan: Patient is status postoperative day 2 amputation of toe on left foot secondary to osteomyelitis. - Wound is healing well - Wound cultures have grown MRSA sensitive to vancomycin Plan: - continue present antibiotic therapy - dressing changes PRN - Patient will need vancomycin or linezolid at the time of discharge - consider extended-care facility placement Qualifiers: Osteomyelitis location: foot Qualified Code(s): M86.9 - Osteomyelitis, unspecified (3) Raynauds disease Current Visit: No Status: Chronic Assessment and plan: Patient has a known history of Raynauds Disease, severe enough to be contributing to digital hypoperfusion and necrosis. -Started On 5 mg amlodipine with this admission. Plan to prescribe nitroglycerin ointment and amlodipine upon discharge. - Would highly benefit from a follow-up with Rheumatology Qualifiers: Raynaud?s-associated gangrene presence: without gangrene Qualified Code(s) : I73.00 - Raynaud's syndrome without gangrene (4) DVT prophylaxis Current Visit: No Status: Acute Assessment and plan: 40 mg Lovenox subcutaneous daily - Subjective Interval history: Patient has been seen and evaluated patient bedside. She is awake alert and interactive and denies any pain or discomforts. She is picking at her foot dressing but says that she feels is improving well. She has any fevers, chills , sweating, lower extremity pain. She has been eating and drinking without any difficulty. She was concerned regarding the bug MRSA and with this with me for her healing. After discussion regarding MRSA, her current cellulitis, her postoperative care she understands that she will require IV antibiotics. I also discussed her current admission and that she should probably follow up with rheumatology for which we will make a referral for the time of discharge. - Constitutional Vitals: Temp Pulse Resp BP Pulse Ox 98.1 F 86 19 134/98 98 11/10/16 12:36 11/10/16 12:36 11/10/16 12:36 11/10/16 12:36 11/10/16 12:36 General appearance: Present: A&O X 3, no acute distress, answers questions appropriately Exam: General: Patient alert, awake, oriented 3, interactive, in no acute distress HEENT: Normocephalic, atraumatic, pupils equal reactive to light, nasal cavity patent and open septum median position, oral mucosa moist, uvula midline, neck supple trachea midline no palpable lymphadenopathy, no thyromegaly. Chest: Symmetric bilateral correlating with respiratory effort, effort nonlabored. Cardiac: Regular rate and rhythm, positive S1 and S2. no bruits appreciated bilateral carotids, Radial pulses 2+ bilateral, posterior tibial and dorsal pedal pulses 2+ bilateral. Respiratory: Clear to auscultation all lung de [place]sa Abdomen: Soft, nontender, positive bowel sounds, no palpable masses appreciated on examination Extremities: Symmetric bilateral, left foot is bandaged, pulses are 2+, sensation intact patient was without significant pain. patient moving all 4 extremities spontaneously. Neurologic: No focal deficits appreciated on examination. Face symmetric, muscle strength symmetric bilateral upper and lower extremities. Internal Medicine: Result - Labs CBC & Chem 7: 11/10/16 03:38 11/10/16 03:38 Labs: Short CBC 11/10/16 Range/Units 03:38 WBC 8.3 (4.3-11.1) K/mcL Hgb 11.9 (11.5-15.4) g/dL Hct 36.3 (35.3-44.9) % Plt Count 222 (140-400) K/mcL Neutrophils # 5.3 (1.6-8.9) K/mcL BMP 11/10/16 03:38 Sodium 136 Potassium 4.1 Chloride 106 Carbon Dioxide 22 BUN 22 H Creatinine 0.95 Glucose 93 Calcium 9.0 - VTE Documentation of Mechanical Device: Intermittent pneumatic compression device Consult Discharge Plan - Plan Referrals: NONE,PCP [Primary Care Provider] - <Jere Freitas - Last Filed: 11/10/16 17:59> Date of Encounter: 11/10/16 - Assessment and plan (1) Cellulitis Current Visit: Yes Status: Acute Qualifiers: Site of cellulitis: extremity Site of cellulitis of extremity: toe Laterality: left Qualified Code(s): L03.032 - Cellulitis of left toe (2) Osteomyelitis Current Visit: Yes Status: Acute Qualifiers: Osteomyelitis type: other acute Osteomyelitis location: foot Laterality: left Qualified Code(s): M86.172 - Other acute osteomyelitis, left ankle and foot (3) Hypertension Current Visit: No Status: Chronic Assessment and plan: Continue current medications. Qualifiers: Hypertension type: essential hypertension Qualified Code(s): I10 - Essential (primary) hypertension (4) Raynauds disease Current Visit: No Status: Chronic Qualifiers: Raynaud?s-associated gangrene presence: without gangrene Qualified Code(s) : I73.00 - Raynaud's syndrome without gangrene (5) Tobacco abuse Current Visit: Yes Status: Chronic Assessment and plan: Cessation counselling. - Constitutional Vitals: Temp Pulse Resp BP Pulse Ox 97.9 F 98 14 131/77 99 11/10/16 16:40 11/10/16 16:40 11/10/16 16:40 11/10/16 16:40 11/10/16 16:40 Internal Medicine: Result - Labs CBC & Chem 7: 11/10/16 03:38 11/10/16 03:38 Labs: Short CBC 11/10/16 Range/Units 03:38 WBC 8.3 (4.3-11.1) K/mcL Hgb 11.9 (11.5-15.4) g/dL Hct 36.3 (35.3-44.9) % Plt Count 222 (140-400) K/mcL Neutrophils # 5.3 (1.6-8.9) K/mcL BMP 11/10/16 03:38 Sodium 136 Potassium 4.1 Chloride 106 Carbon Dioxide 22 BUN 22 H Creatinine 0.95 Glucose 93 Calcium 9.0 - Attending Attestation I examined this patient and my medical decision-making was reviewed with the Resident Physician on 11/10/16. I agree with the documented findings, disposition and treatment plan as described except to the extent set forth below. Ms. De Leon is currently admitted for cellulitis and osteomyelitis of foot due to MRSA. She remains moderate to high risk due to potential for worsening infectious status and need for IV abx and monitoring. Ms. De Leon is "playing" with her dressing on her foot. Pain is OK at this point. She is concerned about MRSA. No fever or chills. No CP or SOB. Exam Alert. Comfortable Heart reg No wheeze Abd soft Dressing on foot intact at this time. I/P 1. MRSA cellulitis and OM R foot 2. Raynauds disease Further diagnoses and plan as above.
[2016-11-11] MEDS: 0.9 % Sodium Chloride 1,000 ML IVC SCH ×3 (00:06→23:05)
[2016-11-11] MEDS: *HR* Enoxaparin 40 MG/0.4 ML SYRINGE SQ SCH (05:22)
[2016-11-11] MEDS: Vancomycin 1,250 MG in D5% in Water 250 ML IVPB SCH ×2 (05:22→16:13)
[2016-11-11] MEDS: *HR* Morphine 2 MG/ML SYRINGE IVP PRN ×3 (05:23→21:30)
[2016-11-11 05:57] LABS: Basophils # 0.1 K/mcL (0.0-0.2); Basophils % 0.5 %; Eosinophils # 0.4 K/mcL (0.0-0.6); Eosinophils % 4.4 %; Hematocrit 36.7 % (35.3-44.9); Hemoglobin 12.3 g/dL (11.5-15.4); Immature Granulocytes % 1.2 % (0-4); Lymphocytes # 1.8 K/mcL (0.6-4.6); Lymphocytes % 19.7 %; Mean Corpuscular HGB Conc 33.5 g/dL (31.6-35.5); Mean Corpuscular Hemoglobin 29.6 pg (28.0-33.3); Mean Corpuscular Volume 88.2 fL (83.0-100.0); Mean Platelet Volume 10.3 fL (9.4-12.4); Monocytes # 0.7 K/mcL (0.0-1.3); Monocytes % 7.7 %; Neutrophils # 6.1 K/mcL (1.6-8.9); Platelet Count 224 K/mcL (140-400); Red Blood Count 4.16 M/mcL (3.82-4.97); Red Cell Distribution Width 14.7 % (11.5-14.5); Segmented Neutrophils % 66.5 %
[2016-11-11 06:10] LABS: Alanine Aminotransferase 70 Units/L (0-55); Albumin 2.9 g/dL (3.5-5.0); Albumin/Globulin Ratio 0.8 (1.1-2.2); Alkaline Phosphatase 133 Units/L (38-126); Aspartate Amino Transferase 52 Units/L (5-34); BUN/Creatinine Ratio 24 (6-26); Bilirubin,Total 0.3 mg/dL (0.2-1.2); Blood Urea Nitrogen 21 mg/dL (7-20); Carbon Dioxide 25 mEq/L (19-29); Chloride 106 mEq/L (98-109); Globulin 3.7 g/dL (2.4-3.5); Glucose 98 mg/dL (70-99); Osmolality,Calculated 287 (280-300); Potassium 4.4 mEq/L (3.5-4.5); Sodium 137 mEq/L (136-145); Total Protein 6.6 g/dL (6.0-8.3); eGFR For African Americans > 60 (> 60); eGFR For Non-African Americans > 60 (> 60)
[2016-11-11] MEDS: amLODIPine 5 MG TABLET PO SCH (11:01)
--- NOTE | 2016-11-11 13:52 | Internal Med Progress Note ---
<Juan Manuel Farah - Last Filed: 11/11/16 13:50> Date of Encounter: 11/11/16 Time of Encounter: 13:50 - Assessment and plan (1) Cellulitis Current Visit: Yes Status: Acute Assessment and plan: Cellulitis secondary to osteomyelitis of left foot. - Wound culture is growing MRSA - Patient is afebrile, normotensive, oxygenating 98% on room air, WBC is normal - Day 7 of vancomycin and will likely need 21 days of IV antibiotics total Plan for power glide line prior to discharge tomorrow to [facility]. Qualifiers: Site of cellulitis: extremity Site of cellulitis of extremity: toe Laterality: left Qualified Code(s): L03.032 - Cellulitis of left toe (2) Osteomyelitis Current Visit: Yes Status: Acute Assessment and plan: Patient is status postoperative day 2 amputation of toe on left foot secondary to osteomyelitis. - Wound is healing well - Wound cultures have grown MRSA sensitive to vancomycin Plan: - continue present antibiotic therapy - dressing changes PRN - Patient will need vancomycin or linezolid at the time of discharge - consider extended-care facility placement Qualifiers: Osteomyelitis type: other acute Osteomyelitis location: foot Laterality: left Qualified Code(s): M86.172 - Other acute osteomyelitis, left ankle and foot (3) Raynauds disease Current Visit: No Status: Chronic Assessment and plan: Patient has a known history of Raynauds Disease, severe enough to be contributing to digital hypoperfusion and necrosis. -Started On 5 mg amlodipine with this admission. Plan to prescribe nitroglycerin ointment and amlodipine upon discharge. - Would highly benefit from a follow-up with Rheumatology Qualifiers: Raynaud?s-associated gangrene presence: without gangrene Qualified Code(s) : I73.00 - Raynaud's syndrome without gangrene (4) DVT prophylaxis Current Visit: No Status: Acute Assessment and plan: 40 mg Lovenox subcutaneous daily - Subjective Interval history: Patient has been seen and evaluated patient bedside. She is awake alert and interactive and denies any pain or discomforts. She says nothing is changed since yesterday and she is awaiting discharge tomorrow. She denies any fevers, chills or sweating or pain in her foot post surgery. Otherwise she is resting comfortably and has no complaints or concerns. - Constitutional Vitals: Temp Pulse Resp BP Pulse Ox 98.2 F 89 18 140/90 98 11/11/16 00:00 11/11/16 00:00 11/11/16 00:00 11/11/16 00:00 11/11/16 00:00 General appearance: Present: A&O X 3, no acute distress, answers questions appropriately Exam: General: Patient alert, awake, oriented 3, interactive, in no acute distress HEENT: Normocephalic, atraumatic, pupils equal reactive to light, nasal cavity patent and open septum median position, oral mucosa moist, uvula midline, neck supple trachea midline no palpable lymphadenopathy, no thyromegaly. Chest: Symmetric bilateral correlating with respiratory effort, effort nonlabored. Cardiac: Regular rate and rhythm, positive S1 and S2. no bruits appreciated bilateral carotids, Radial pulses 2+ bilateral, posterior tibial and dorsal pedal pulses 2+ bilateral. Respiratory: Clear to auscultation all lung de [place] rosa Abdomen: Soft, nontender, positive bowel sounds, no palpable masses appreciated on examination Extremities: Symmetric bilateral, left foot is bandaged, pulses are 2+, sensation intact patient was without significant pain. patient moving all 4 extremities spontaneously. Neurologic: No focal deficits appreciated on examination. Face symmetric, muscle strength symmetric bilateral upper and lower extremities. Internal Medicine: Result - Labs CBC & Chem 7: 11/11/16 05:43 11/11/16 05:43 Labs: Short CBC 11/11/16 Range/Units 05:43 WBC 9.1 (4.3-11.1) K/mcL Hgb 12.3 (11.5-15.4) g/dL Hct 36.7 (35.3-44.9) % Plt Count 224 (140-400) K/mcL Neutrophils # 6.1 (1.6-8.9) K/mcL BMP 11/11/16 05:43 Sodium 137 Potassium 4.4 Chloride 106 Carbon Dioxide 25 BUN 21 H Creatinine 0.89 Glucose 98 Calcium 9.0 Liver Function 11/11/16 Range/Units 05:43 Total Bilirubin 0.3 (0.2-1.2) mg/dL AST 52 H (5-34) Units/L ALT 70 H (0-55) Units/L Alkaline Phosphatase 133 H (38-126) Units/L Albumin 2.9 L (3.5-5.0) g/dL - VTE Documentation of Mechanical Device: Intermittent pneumatic compression device Consult Discharge Plan - Plan Referrals: NONE,PCP [Primary Care Provider] - <Jere Freitas - Last Filed: 11/11/16 17:54> Date of Encounter: 11/11/16 - Assessment and plan (1) Cellulitis Current Visit: Yes Status: Acute Qualifiers: Site of cellulitis: extremity Site of cellulitis of extremity: toe Laterality: left Qualified Code(s): L03.032 - Cellulitis of left toe (2) Osteomyelitis Current Visit: Yes Status: Acute Qualifiers: Osteomyelitis type: other acute Osteomyelitis location: foot Laterality: left Qualified Code(s): M86.172 - Other acute osteomyelitis, left ankle and foot (3) Hypertension Current Visit: No Status: Chronic Qualifiers: Hypertension type: essential hypertension Qualified Code(s): I10 - Essential (primary) hypertension (4) Raynauds disease Current Visit: No Status: Chronic Qualifiers: Raynaud?s-associated gangrene presence: without gangrene Qualified Code(s) : I73.00 - Raynaud's syndrome without gangrene (5) Tobacco abuse Current Visit: Yes Status: Chronic - Constitutional Vitals: Temp Pulse Resp BP Pulse Ox 98.2 F 89 18 140/90 98 11/11/16 00:00 11/11/16 00:00 11/11/16 00:00 11/11/16 00:00 11/11/16 00:00 Internal Medicine: Result - Labs CBC & Chem 7: 11/11/16 05:43 11/11/16 05:43 Labs: Short CBC 11/11/16 Range/Units 05:43 WBC 9.1 (4.3-11.1) K/mcL Hgb 12.3 (11.5-15.4) g/dL Hct 36.7 (35.3-44.9) % Plt Count 224 (140-400) K/mcL Neutrophils # 6.1 (1.6-8.9) K/mcL BMP 11/11/16 05:43 Sodium 137 Potassium 4.4 Chloride 106 Carbon Dioxide 25 BUN 21 H Creatinine 0.89 Glucose 98 Calcium 9.0 Liver Function 11/11/16 Range/Units 05:43 Total Bilirubin 0.3 (0.2-1.2) mg/dL AST 52 H (5-34) Units/L ALT 70 H (0-55) Units/L Alkaline Phosphatase 133 H (38-126) Units/L Albumin 2.9 L (3.5-5.0) g/dL - Attending Attestation I examined this patient and my medical decision-making was reviewed with the Resident Physician on 11/11/16. I agree with the documented findings, disposition and treatment plan as described except to the extent set forth below. Ms. De Leon is currently admitted for cellulitis and osteomyelitis with MRSA. She remains moderate to high risk due to potential for worsening infection. Ms. De Leon is doing OK. She removed her own bandage this AM. No CP or SOB. No fever or chills. Exam Alert. Comfortable Heart reg No wheeze Abd soft Dressing now intact I/P 1. Cellulitis - MRSA 2. OM s/p amputation Further diagnoses and plan as above.
[2016-11-12] MEDS: 0.9 % Sodium Chloride 1,000 ML IVC SCH ×2 (05:18→17:19)
[2016-11-12] MEDS: Vancomycin 1,250 MG in D5% in Water 250 ML IVPB SCH ×2 (05:19→17:19)
[2016-11-12] MEDS: *HR* Enoxaparin 40 MG/0.4 ML SYRINGE SQ SCH (05:20)
[2016-11-12] MEDS: amLODIPine 5 MG TABLET PO SCH (08:36)
--- NOTE | 2016-11-12 09:14 | Discharge Summary ---
<Jimmy Leo - Last Filed: 11/12/16 12:36> Date of Encounter: 11/12/16 Time of Encounter: 08:45 - Discharge Diagnosis (1) Acute osteomyelitis of toe of left foot Priority: Primary Status: Acute (2) Cellulitis Priority: Primary Status: Acute Qualifiers: Site of cellulitis: extremity Site of cellulitis of extremity: toe Laterality: left Qualified Code(s): L03.032 - Cellulitis of left toe (3) Leukocytosis Priority: Primary Status: Resolved Qualifiers: Qualified Code(s): D72.829 - Elevated white blood cell count, unspecified (4) Raynauds disease Priority: Primary Status: Chronic Qualifiers: Raynaud?s-associated gangrene presence: without gangrene Qualified Code(s) : I73.00 - Raynaud's syndrome without gangrene (5) Hypertension Priority: Primary Status: Chronic Qualifiers: Hypertension type: essential hypertension Qualified Code(s): I10 - Essential (primary) hypertension (6) DVT prophylaxis Priority: Primary Status: Acute - Discharge Medications Prescriptions: amLODIPine [Norvasc] 5 mg PO DAILY #30 tab Nitroglycerin [Nitro-Bid] 30 gm TD BID #1 oint...g. Vancomycin HCl in Dextrose 5 % [Vancomycin-D5w 1.25 Gram/250Ml] 1.25 gm IV Q12H #26 Home Medications: Acetaminophen [Tylenol] 500 mg PO Q6HR PRN 05/16/16 [History] Paroxetine HCl [Paxil] 20 mg PO DAILY 11/05/16 [History] Nitroglycerin [Nitro-Bid] 30 gm TD BID #1 oint...g. 11/12/16 [Rx] Vancomycin HCl in Dextrose 5 % [Vancomycin-D5w 1.25 Gram/250Ml] 1.25 gm IV Q12H #26 11/12/16 [Rx] amLODIPine [Norvasc] 5 mg PO DAILY #30 tab 11/12/16 [Rx] Allergies/Adverse Reactions: 3 Allergy/AdvReac Type Severity Reaction Status Date / Time Cyclobenzaprine Allergy Numbness Verified 03/17/15 16:31 [From Flexeril] tramadol Allergy Rash Verified 03/17/15 16:31 Possible muscle relaxer AdvReac Numbness Uncoded 12/14/14 15:06 Date of admission: 11/05/16 17:50 Primary care physician: PCP NONE Consults: 11/05/16 21:17 Consult to Podiatry [CONS] Routine Consulting Provider: [facility] Reason for Consult: osteo as discussed. consult Dr Cox as discussed with him overnight Call Completed: No 11/06/16 12:29 Consult to [employer] F[employer] Driver Truck Driver [CONS] Routine Reason for SW Consult: discharge planning/resources Discharging clinician: Jere Freitas ([facility]) Anticipated date of discharge: 11/12/16 - Patient Status Disposition: Transfer SNF Condition: Good - Discharge Instructions Instructions: Cellulitis (DC), Peripheral Vascular Disorders (DC) Follow Up With: NONE,PCP [Primary Care Provider] - - Diet and Activity Activity: as per physical therapy Diet: low salt diet Interval History: Ms. De Leon is a 25 year old female with a PMH of osteomyelitis and raynaud's and a PSH of L 3rd toe amputation that presents for cellulitis of the 2nd toe of the L foot. Hospital course: Ms. De Leon is a 25 year old female with a PMH of osteomyelitis and raynaud's and a PSH of L 3rd toe amputation that presents for cellulitis of the 2nd toe of the L foot. Patient said that she had been experiencing pain in her 2nd L toe for the past 1-2 weeks. She admited to fever, pain, and swelling. When presented to the ED, she was afebrile with a normal WBC count. X-ray of the L foot showed osteomyelitis of the L 2nd distal phalynx. She was subsequently started on zozsyn and vancomycin. Currently only on vancomycin. Patient underwent amputation of the distal interphalangeal joint of the 2nd toe of the L foot. The affected tissue was removed and debrided. Wound culture showed growth of MRSA. Patient has been improving on vancomycin. When seen today, patient says the pain in her L foot is a 7/10, but is only intermittent. She says that she had a few drops of bright red blood in the toilet yesterday with her bowel movement, but denied any pain. She denies any fever, chills, nausea, vomting, shortness of breath, light-headedness, syncope, dizziness, chest pain, abdominal pain, constipation, diarrhea, or hematuria. Plan is currently to discharge the patient the patient with vancomycin where she will complete a total of 21 days. She is currently on day 8 of vancomycin. Patient will also continue her amlodipine and also be prescribed nitroglycerin ointment for her Raynaud's. Patient should follow-up with her PCP for her cellulitis and rheumatology for her Raynaud's. - Time Spent with Patient Total time spent providing and/or coordinating discharge services: - Constitutional Vitals: Temp Pulse Resp BP Pulse Ox 97.6 F 101 19 145/89 98 11/12/16 00:27 11/12/16 00:27 11/12/16 00:27 11/12/16 00:27 11/12/16 00:27 General appearance: Present: A&O X 3, no acute distress, answers questions appropriately - Respiratory Respiratory exam: Present: CTAB. Absent: respiratory distress, rhonchi, wheezes , tachypnea - Cardiovascular Cardiovascular exam: Present: RRR, +S1, +S2. Absent: diastolic murmur, systolic murmur - GI/Abdominal GI/Abdominal exam: Present: normal bowel sounds, soft. Absent: distended, guarding, rebound, tenderness - Extremities Exam Extremities exam: Absent: pedal edema Additional comments: L foot bandaged. Pedal pulses intact bilaterally. Sensations in lower extremities intact bilaterally. - VTE Documentation of Mechanical Device: Intermittent pneumatic compression device <Jere Freitas - Last Filed: 11/12/16 19:36> Date of Encounter: 11/12/16 - Discharge Diagnosis (1) Cellulitis Status: Acute Qualifiers: Site of cellulitis: extremity Site of cellulitis of extremity: toe Laterality: left Qualified Code(s): L03.032 - Cellulitis of left toe (2) Osteomyelitis Priority: Secondary Status: Acute Qualifiers: Osteomyelitis type: other acute Osteomyelitis location: foot Laterality: left Qualified Code(s): M86.172 - Other acute osteomyelitis, left ankle and foot (3) Hypertension Status: Chronic Qualifiers: Hypertension type: essential hypertension Qualified Code(s): I10 - Essential (primary) hypertension (4) Raynauds disease Status: Chronic Qualifiers: Raynaud?s-associated gangrene presence: without gangrene Qualified Code(s) : I73.00 - Raynaud's syndrome without gangrene (5) Tobacco abuse Priority: Secondary Status: Chronic Date of admission: 11/05/16 17:50 Primary care physician: PCP NONE Consults: 11/05/16 21:17 Consult to Podiatry [CONS] Routine Consulting Provider: [facility] Reason for Consult: osteo as discussed. consult Dr Cox as discussed with him overnight Call Completed: No 11/06/16 12:29 Consult to [employer] Driver Truck Driver [CONS] Routine Reason for SW Consult: discharge planning/resources 11/12/16 11:14 Consult to Invasive Line Access Team [CONS] Routine Reason for Consult: long-term IVAB Line Type: EPIV Hospital course: Ms. De Leon is a 25 year old female - Time Spent with Patient Total time spent providing and/or coordinating discharge services: 38min - Constitutional Vitals: Temp Pulse Resp BP Pulse Ox 98.4 F 101 17 154/88 99 11/12/16 17:32 11/12/16 17:32 11/12/16 17:32 11/12/16 17:32 11/12/16 17:32 - Attending Attestation I examined this patient and my medical decision-making was reviewed with the Resident Physician on 11/12/16. I agree with the documented findings, disposition and treatment plan as described except to the extent set forth below. Ms. De Leon has been admitted for osteomyelitis of her foot. She is s/p amputation. She is afebrile and vitals stable. She is ready for d/c to SNF for IV abx. Exam Alert. Pleasant Heart reg No wheeze Mucus membranes dry Dressing intact Plan D/C to SNF when arranged.
--- NOTE | 2016-11-12 09:32 | Physician Discharge Referral ---
ExtendedCare Referral Info Transfer To: [facility] Provider in Charge: Dr. Freitas Provider in Charge after Transfer: PCP - Diagnosis (1) Acute osteomyelitis of toe of left foot Priority: Primary Status: Acute (2) Cellulitis Priority: Primary Status: Acute (3) Leukocytosis Priority: Primary Status: Resolved (4) Raynauds disease Priority: Primary Status: Chronic (5) Hypertension Priority: Primary Status: Chronic (6) DVT prophylaxis Priority: Primary Status: Acute - Transfer Medications Prescriptions: amLODIPine [Norvasc] 5 mg PO DAILY #30 tab Nitroglycerin [Nitro-Bid] 30 gm TD BID #1 oint...g. Vancomycin HCl in Dextrose 5 % [Vancomycin-D5w 1.25 Gram/250Ml] 1.25 gm IV Q12H #26 Home Medications: Acetaminophen [Tylenol] 500 mg PO Q6HR PRN 05/16/16 [History] Paroxetine HCl [Paxil] 20 mg PO DAILY 11/05/16 [History] Nitroglycerin [Nitro-Bid] 30 gm TD BID #1 oint...g. 11/12/16 [Rx] Vancomycin HCl in Dextrose 5 % [Vancomycin-D5w 1.25 Gram/250Ml] 1.25 gm IV Q12H #26 11/12/16 [Rx] amLODIPine [Norvasc] 5 mg PO DAILY #30 tab 11/12/16 [Rx] Allergies/Adverse Reactions: 3 Allergy/AdvReac Type Severity Reaction Status Date / Time Cyclobenzaprine Allergy Numbness Verified 03/17/15 16:31 [From Flexeril] tramadol Allergy Rash Verified 03/17/15 16:31 Possible muscle relaxer AdvReac Numbness Uncoded 12/14/14 15:06 - Respiratory Orders Smoking Cessation: Smoking cessation has been advised. For more information, call the [place] Tobacco Quit Line at 1-487-JGRU-NOW. - Lab Orders Lab Orders: Other (include drug levels w/frequency) (Vancomycin trough levels every 3 days.) - Ancillary Orders May go on [facility] w/family/respon alliance party w/meds at nurse discretion PRN, May consult with Dentist, Detention Deputy, Community Action Worker PRN - Advance Directives Code Status: Full Code - Mobility Orders Other - Rehabiliation Orders Rehab Potential: Good - Treatments Skin tear care topically daily PRN per policy, May check for fecal impaction rectally daily PRN - Diet Orders No Added Salt (MARTIN) CERTIFICATION: I certify that the transfer of the above named patient to an Extended Care Facility is necessary for the continuing treatment of the diagnosis listed. The above information is true and accurate reflection of patient's current condition. Confidential - Redisclosure prohibited without a patient's written consent.
[2016-11-12] MEDS: *HR* Morphine 2 MG/ML SYRINGE IVP PRN ×3 (10:07→21:10)
[2016-11-13] MEDS: 0.9 % Sodium Chloride 1,000 ML IVC SCH ×2 (02:29→17:33)
[2016-11-13] MEDS: Vancomycin 1,250 MG in D5% in Water 250 ML IVPB SCH ×2 (05:39→17:32)
[2016-11-13] MEDS: *HR* Enoxaparin 40 MG/0.4 ML SYRINGE SQ SCH (05:40)
[2016-11-13] MEDS: amLODIPine 5 MG TABLET PO SCH (09:27)
[2016-11-13] MEDS: *HR* Morphine 2 MG/ML SYRINGE IVP PRN ×2 (19:55→23:59)
[2016-11-14] MEDS: Vancomycin 1,250 MG in D5% in Water 250 ML IVPB SCH ×2 (06:12→16:36)
[2016-11-14] MEDS: *HR* Morphine 2 MG/ML SYRINGE IVP PRN (06:12)
[2016-11-14] MEDS: 0.9 % Sodium Chloride 1,000 ML IVC SCH (06:14)
[2016-11-14] MEDS: *HR* Enoxaparin 40 MG/0.4 ML SYRINGE SQ SCH (06:19)
[2016-11-14] MEDS: amLODIPine 5 MG TABLET PO SCH (09:15)
[2016-11-14] MEDS: Ibuprofen 400 MG TABLET PO PRN ×2 (09:33→15:31)
[2016-11-14] MEDS ORDERED: FLUARIX QUAD 2017-18 36MOS UP/PF 0.5 ML SYRINGE IM ONE (13:06)
[2016-11-14 15:00] VITALS: BP 130/87
--- NOTE | 2016-11-14 15:21 | Internal Med Progress Note ---
Date of Encounter: 11/13/16 Time of Encounter: 16:30 - Assessment and plan (1) Osteomyelitis Current Visit: Yes Status: Acute Assessment and plan: Patient presented with acute osteomyelitis of left second toe. Podiatry was consulted and patient underwent amputation of left second toe. Wound culture grows MRSA, continue IV vancomycin. Patient will need at least 4-6 weeks of IV antibiotics. Plan is to receive PICC line and discharge to extended care facility for long-term IV antibiotics. services advisor working on the same. Qualifiers: Osteomyelitis type: other acute Osteomyelitis location: foot Laterality: left Qualified Code(s): M86.172 - Other acute osteomyelitis, left ankle and foot (2) Hypertension Current Visit: Yes Status: Chronic Assessment and plan: Blood pressure noted to be well controlled, patient noted to be tachycardic. Continue Norvasc, will start low-dose metoprolol. Low-sodium diet. Qualifiers: Hypertension type: essential hypertension Qualified Code(s): I10 - Essential (primary) hypertension (3) Cellulitis Current Visit: Yes Status: Acute Qualifiers: Site of cellulitis: extremity Site of cellulitis of extremity: toe Laterality: left Qualified Code(s): L03.032 - Cellulitis of left toe (4) Raynauds disease Current Visit: Yes Status: Chronic Assessment and plan: Outpatient rheumatology follow-up. Qualifiers: Raynaud?s-associated gangrene presence: without gangrene Qualified Code(s) : I73.00 - Raynaud's syndrome without gangrene - Subjective Interval history: Denies chest pain, palpitations, shortness of breath. Left foot pain is well controlled, able to ambulate. No fever or chills. - Constitutional Vitals: Temp Pulse Resp BP Pulse Ox 98.5 F 98 18 130/87 98 11/14/16 14:58 11/14/16 14:58 11/14/16 14:58 11/14/16 14:58 11/14/16 14:58 General appearance: Present: A&O X 3, no acute distress, answers questions appropriately - Respiratory Respiratory exam: Present: CTAB. Absent: accessory muscle use, rales, rhonchi, wheezes - Cardiovascular Cardiovascular exam: Present: RRR, +S1, +S2. Absent: diastolic murmur, gallop, rubs, systolic murmur - Extremities Exam Extremities exam: Present: warm, radial pulses palpable and symmetrical. Absent : calf tenderness, cyanotic, pedal edema Additional comments: Left foot in surgical dressing and boot Internal Medicine: Result - Labs CBC & Chem 7: 11/11/16 05:43 11/11/16 05:43 - VTE Documentation of Mechanical Device: Intermittent pneumatic compression device Consult Discharge Plan - Plan Instructions: Cellulitis (DC), Peripheral Vascular Disorders (DC) Additional Instructions: Keep dressing clean, dry, and intact. Take medications as prescribed. Monitor wound for signs and symptoms of infection. Wear ortho shoe with ambulation. Heel bearing when walking. Referrals: Phyllis Rogers CNP [Partnered Physician] - 11/22/16 10:00 am Prescriptions: amLODIPine [Norvasc] 5 mg PO DAILY #30 tab Nitroglycerin [Nitro-Bid] 30 gm TD BID #1 oint...g. Vancomycin HCl in Dextrose 5 % [Vancomycin-D5w 1.25 Gram/250Ml] 1.25 gm IV Q12H #26
--- NOTE | 2016-11-14 15:22 | Internal Med Progress Note ---
Date of Encounter: 11/14/16 Time of Encounter: 14:50 - Assessment and plan (1) Acute osteomyelitis of toe of left foot Status: Acute Assessment and plan: Patient presented with acute osteomyelitis of left second toe. Podiatry was consulted and patient underwent amputation of left second toe. Wound culture grows MRSA, continue IV vancomycin. Patient will need at least 4-6 weeks of IV antibiotics. Received PICC line and has been approved at [facility] for IV antibiotic infusion. Follow-up to be arranged with infectious diseases as outpatient to monitor vancomycin levels and renal function. Patient is medically stable for discharge today. 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 Absent: accessory muscle use, rales, rhonchi, wheezes - Cardiovascular Cardiovascular exam: Present: RRR, +S1, +S2. Absent: diastolic murmur, gallop, rubs, systolic murmur - Extremities Exam Extremities exam: Present: warm, radial pulses palpable and symmetrical. Absent : calf tenderness, cyanotic, pedal edema Additional comments: left foot in surgical dressing and special boot Internal Medicine: Result - Labs CBC & Chem 7: 11/11/16 05:43 11/11/16 05:43 - VTE Documentation of Mechanical Device: Intermittent pneumatic compression device Consult Discharge Plan - Plan Instructions: Cellulitis (DC), Peripheral Vascular Disorders (DC) Additional Instructions: Keep dressing clean, dry, and intact. Take medications as prescribed. Monitor wound for signs and symptoms of infection. Wear ortho shoe with ambulation. Heel bearing when walking. Referrals: Phyllis Rogers CNP [Partnered Physician] - 11/22/16 10:00 am Prescriptions: amLODIPine [Norvasc] 5 mg PO DAILY #30 tab Nitroglycerin [Nitro-Bid] 30 gm TD BID #1 oint...g. Vancomycin HCl in Dextrose 5 % [Vancomycin-D5w 1.25 Gram/250Ml] 1.25 gm IV Q12H #26
--- NOTE | 2016-11-14 17:09 | Podiatry Progress Note ---
Date of Encounter: 11/14/16 Time of Encounter: 17:00 - Assessment and Plan (1) Osteomyelitis Current Visit: Yes Status: Acute Assessment: Osteomyelitis of toe #2 left foot secondary to raynauds and tobacco abuse. 11/08 amputation of distal toe. Plan: Continue current antibiotic therapy- vancomycin- Wound culture positive for MRSA - patient will receive total of 21 days IV antibiotic coverage Patient has been accepted to [facility] Will need to have appointment made to be seen in clinic by or myself Dressing changed at bedside today, adaptic, 4x4 and kerlex. Will need PRN dressing changes at [facility]. Patient tends to pull off dressing. Also reports she gets it wet when she bathes. If dressing starts to unravel or is saturated please change Ambulation with post operative shoe, weight bearing to heel Call with any s/s of infection or complications Patient denies any pain to toe. Foot X-Ray 11/05/16 15:30 IMPRESSION: Osteomyelitis of the left 2nd distal phalanx. D/ / Davonte Barboza MD / Davonte Barboza MD Interpreting Provider: Davonte Barboza MD Qualifiers: Osteomyelitis type: other acute Osteomyelitis location: foot Laterality: left Qualified Code(s): M86.172 - Other acute osteomyelitis, left ankle and foot (2) Raynauds disease Current Visit: No Status: Chronic Qualifiers: Raynaud?s-associated gangrene presence: without gangrene Qualified Code(s) : I73.00 - Raynaud's syndrome without gangrene Subjective Principal diagnosis: Status post distal amputation toe #2 left foot Interval history: Patient is PO day #6 amputation distal interphalangeal joint #2 toe left foot per . Patient is resting comfortably on arrival. Dressing intact. Receiving dose of vancomycin and then will be released to [facility]. Denies any pain at this time. Patient wanting to leave and go smoke. Denies any calf pain or SOB. Denies fevers, chills, n/v or flu like symptoms Objective - Vital Signs Vital Signs: Vital Signs Temp Pulse Resp BP Pulse Ox 11/14/16 14:58 98.5 F 98 18 130/87 98 11/14/16 11:16 98.4 F 102 18 114/57 99 11/14/16 06:39 97.7 F 92 18 129/80 99 11/13/16 23:32 98.4 F 104 19 126/69 99 11/13/16 18:50 98.3 F 111 18 130/92 98 Intake and Output 11/14/16 11/14/16 11/14/16 07:59 15:59 23:59 Intake Total 1750 / 1750 730 / 730 Output Total 700 / 700 Balance 1750 / 1750 30 / 30 Intake: IV Fluids 1000 / 1000 250 / 250 0.9 % Sodium Chloride 1,000 ML 1000 / 1000 @ 100 mls/hr IVC .Q10H [facility] Rx#: [id number] Vancocin 1,250 MG In Dextrose 5 250 / 250 % 250 ML @ 166.667 mls/hr IVPB Q12H [facility] Rx#:[id number] Oral 750 / 750 480 / 480 Output: Urine 700 / 700 Other: Meal Lunch Percent of Meal Consumed 100% # Voids 1 1 - Exam Exam: Podiatry General Exam: General appearance: alert awake oriented X 3. Calm and pleasant, no acute distress.. Vascular: Pedal pulses +2/4 DP/PT , No evidence of cyanosis, pallor or rubor, Edema graded at 1+/4, Skin Temperature warm, No calf pain with manual compression. capillary refill time is immediate to digits. Neurologic: Sensation intact with light touch to foot. . Postop Exam: S/P Sutures intact to incision line, no signs of dehiscence. No open area, no drainage, no odor, no erythema, no streaking. no edema. - Lab Result Diagrams: 11/11/16 05:43 11/11/16 05:43 Labs: Abnormal lab results RDW 14.7 % (11.5-14.5) H 11/11/16 05:43 ESR 22 mm/hr (0-15) H 11/05/16 16:30 BUN 21 mg/dL (7-20) H 11/11/16 05:43 Magnesium 1.5 mg/dL (1.6-2.6) L 11/10/16 03:38 AST 52 Units/L (5-34) H 11/11/16 05:43 ALT 70 Units/L (0-55) H 11/11/16 05:43 Alkaline Phosphatase 133 Units/L (38-126) H 11/11/16 05:43 C-Reactive Protein 6 mg/L (Less than 5) H 11/05/16 16:30 Albumin 2.9 g/dL (3.5-5.0) L 11/11/16 05:43 Globulin 3.7 g/dL (2.4-3.5) H 11/11/16 05:43 Albumin/Globulin Ratio 0.8 (1.1-2.2) L 11/11/16 05:43 Urine Urobilinogen 4.0 mg/dL (Normal) H 11/06/16 15:00 Ur Leukocyte Esterase Moderate (Negative) H 11/06/16 15:00 Urine Microscopic WBC 5-15 per hpf (0-3) H 11/06/16 15:00 Ur Squamous Epith Cells Many per lpf (None-Few) H 11/06/16 15:00 Ur Culture Indicated? YES (NO) A 11/06/16 15:00 Microbiology, Last 48 Hours 11/08/16 15:37 Anaerobic Culture - Final Left Second Toe No anaerobes were recovered. - VTE Documentation of Mechanical Device: Intermittent pneumatic compression device Consult Discharge Plan - Plan Instructions: Cellulitis (DC), Peripheral Vascular Disorders (DC) Additional Instructions: Keep dressing clean, dry, and intact. Take medications as prescribed. Monitor wound for signs and symptoms of infection. Wear ortho shoe with ambulation. Heel bearing when walking. Referrals: Phyllis Rogers CNP [Partnered Physician] - 11/22/16 10:00 am Prescriptions: amLODIPine [Norvasc] 5 mg PO DAILY #30 tab Nitroglycerin [Nitro-Bid] 30 gm TD BID #1 oint...g. Vancomycin HCl in Dextrose 5 % [Vancomycin-D5w 1.25 Gram/250Ml] 1.25 gm IV Q12H #26
[2016-11-14] MEDS ORDERED: Aminoglycoside Consult 1 EACH MC ONE (18:28)
== END 2016-11-14 18:29 | DRG 314 ==
LOC: EMEROO 15:04 → SUATTDRO 17:50 → 3NENU 17:50
PROVIDERS: ADMIT Internal Medicine; ATTEND Internal Medicine